=== PATIENT | female | born 1945 | race Caucasian/White ===

== ENCOUNTER 2023-01-05 11:32 | Emergency (ER) | payer MEDICARE, SELFPAY ==
--- NOTE | ~2023-01-05 | XR_ITS ---
EXAMINATION: XR hip RT 2V w AP pelvis DATE: 01/05/2023 16:58 INDICATION: Right lower back pain radiating laterally down the right hip and leg TECHNIQUE: Anteroposterior view of the pelvis and anteroposterior and frog-leg lateral views of the r ight hip were obtained. COMPARISON: CT abdomen and pelvis dated 09/22/2019 FINDINGS: Mild S-shaped curvature in the lumbar spine with severe spondylosis. Normal alignment in the pelvis. No fracture or suspected avascular necrosis. Mild to moderate osteoarthritis at the bilateral hip and sacroiliac joints. Mild hypertrophic change along the greater trochanters. Soft tissues are unremark able. IMPRESSION: 1. Mild to moderate bilateral hip and sacroiliac osteoarthritis. No acute onset abnormality. 2. Severe lumbar spondylosis. Reviewed, dictated and finalized at location A. ING MACHINE OPERATOR
[2023-01-05 12:25] VITALS: BP 135/113; PULSE 98; RESP 14; TEMP 36.4; O2SAT 99
--- NOTE | 2023-01-05 16:59 | PC.NURSE ---
this RN was informed by ED registration staff that patient left with family
--- NOTE | 2023-01-05 21:31 | ED.GENADULT ---
HPI - General Adult General Chief complaint: Back Pain/Injury Stated complaint: pain- sent by Time Seen by Provider: 01/05/23 14:28 Source: patient and family Mode of arrival: wheelchair Limitations: no limitations History of Present Illness HPI narrative: 77-year-old with a history of hypertension, diabetes, osteoarthritis, wheelchair-bound was brought in by daughter with complaints of right hip pain, patient daughter states that she was sent by her primary doctor for x-rays to make sure that she does not have a fracture. Patient denies any fall. . Related Data Allergies Allergy/AdvReac Type Severity Reaction Status Date / Time No Known Allergies Allergy Unverified 05/27/18 10:22 Review of Systems Review of Systems: All systems reviewed & are unremarkable except as noted in HPI and below Constitutional: Constitutional: Reports no additional constitutional complaints Eyes: Eyes: Reports no additional eye complaints ENT: Reports system reviewed and no additional complaints, except as documented Cardiovascular: Cardiovascular: Reports no additional cardiovascular complaints Respiratory: Respiratory: Reports no additional respiratory complaints Gastrointestinal: Gastrointestinal: Reports no additional gastrointestinal complaints Musculoskeletal: Musculoskeletal: Reports as per HPI Neurologic: Reports system reviewed and no additional complaints, except as documented PMFSH Social History Social History Smoking status: Never smoker Alcohol intake: never Exam Narrative: GENERAL: Well-appearing, well-nourished, and in no acute distress. HEAD: Normocephalic, atraumatic. Patient declined any further examination as she was extremely upset she stated she wants x-rays of the hip and she will get out of this place Course Course Emergency Course: 77-year-old was brought in by daughter with a complaint of right hip pain with no fall she wanted x-rays of her hip to make sure that she has no fracture . Patient daughter started yelling at me stating that she is waiting for 2 hours to get x-rays , I have apologized to her for the delay however I did explain to her that I was taking care of a critically ill patient and will see 1 patient later time. Patient states that her insurance and this is unacceptable. She declined to get out of the wheelchair onto the bed for examination. Patient left after getting the x-rays Vital Signs Vital signs: Vital Signs Temperature 36.4 C L 01/05/23 12:25 Pulse Rate 98 01/05/23 12:25 Respiratory Rate 14 01/05/23 12:25 Blood Pressure 135/113 H 01/05/23 12:25 Pulse Oximetry 99 01/05/23 12:25 Oxygen Delivery Room Air 01/05/23 12:25 Temperature 36.4 C L 01/05/23 12:25 Pulse Rate 98 01/05/23 12:25 Respiratory Rate 14 01/05/23 12:25 Blood Pressure 135/113 H 01/05/23 12:25 Pulse Oximetry 99 01/05/23 12:25 Oxygen Delivery Room Air 01/05/23 12:25 Medical Decision Making Vital Signs Vital Signs: Vital Signs Temperature 36.4 C L 01/05/23 12:25 Pulse Rate 98 01/05/23 12:25 Respiratory Rate 14 01/05/23 12:25 Blood Pressure 135/113 H 01/05/23 12:25 Pulse Oximetry 99 01/05/23 12:25 Oxygen Delivery Room Air 01/05/23 12:25 Temperature 36.4 C L 01/05/23 12:25 Pulse Rate 98 01/05/23 12:25 Respiratory Rate 14 01/05/23 12:25 Blood Pressure 135/113 H 01/05/23 12:25 Pulse Oximetry 99 01/05/23 12:25 Oxygen Delivery Room Air 01/05/23 12:25 Imaging Data Radiologist's impression: ITS Impressions Hip/Pelvis X-Ray 01/05/23 17:28 IMPRESSION: 1. Mild to moderate bilateral hip and sacroiliac osteoarthritis. No acute onset abnormality. 2. Severe lumbar spondylosis. Discharge Plan Discharge Clinical Impression: Chronic pain of right hip Patient Disposition: Elopement After Seen by Prov Condition: Stable Follow-up/Referrals: Jim
== END 2023-01-05 16:59 | disposition left against medical advice (07) ==
PROVIDERS: Emergency Provider Family Medicine; PCP Internal Medicine
DX: M25.551 Pain in right hip (principal); G89.29 Other chronic pain; E11.9 Type 2 diabetes mellitus without complications; I10 Essential (primary) hypertension; M19.90 Unspecified osteoarthritis, unspecified site; M47.816 Spondylosis without myelopathy or radiculopathy, lumbar region; M46.1 Sacroiliitis, not elsewhere classified; M16.0 Bilateral primary osteoarthritis of hip; Z99.3 Dependence on wheelchair
CPT/HCPCS: 73502; 99283

== ENCOUNTER 2023-02-20 07:59 | Inpatient (IN) | payer MEDICARE, SELFPAY ==
--- NOTE | ~2023-02-20 | US_ITS ---
EXAMINATION: US renal BI DATE: 02/22/2023 22:41 INDICATION: Acute kidney injury TECHNIQUE: Multiple grayscale and Doppler ultrasound images of the kidneys were obtained. COMPARISON: None. FINDINGS: The right kidney measures 11.1 x 5.3 x 5.6 cm but is poorly visualized. The left kidney dk sures 10.4 x 5.5 x 5.3 cm. The kidneys demonstrate normal parenchymal echogenicity. There is no hydro nephrosis. The bladder is obscured by bowel contents. IMPRESSION: 1. Normal kidneys without hydronephrosis. Reviewed, dictated and finalized at location F.
--- NOTE | ~2023-02-20 | XR_ITS ---
Portable chest x-ray Comparison: None Clinical History: PICC line placement Findings: Right-sided PICC line present, tip in the region of the SVC. No pneumothorax. Possible min imal central congestive change. Lungs are otherwise clear. Cardiomediastinal silhouette is stable. B ones and soft tissues are unremarkable. Impression: Right-sided PICC line in satisfactory position. Possible minimal central congestive changes. Reviewed, dictated and finalized at location . Impression: Right-sided PICC line in satisfactory position. Possible minimal central congestive changes.
--- NOTE | ~2023-02-20 | CT_ITS ---
EXAMINATION: CT brain wo con DATE: 02/23/2023 13:31 INDICATION: Confusion TECHNIQUE: Computed tomography (CT) of the head was performed without intravenous contrast. The mA wa s adjusted according to patient size. Iterative reconstruction technique was employed. Exam dose: 60 5.33 mGy-cm total exam DLP. COMPARISON: 04/22/2018 CT brain FINDINGS: Bilateral carotid siphon internal carotid artery calcifications. Bilateral vertebral artery and basilar artery calcification. There is nonspecific diminished attenuation of the cerebral white matter, likely due to chronic small vessel ischemic changes. There is prominent central and cortical cerebral and cerebellar volume loss. No intracranial mass lesion or hemorrhage or cerebrovascular accident, midline shift or mass effect e ffect is detected. No subdural or epidural hematoma. No fracture or bone destruction of the cranial vault. There are mastoid air cell effusions on the left. The right mastoid air cells are normally developed and aerated. Included paranasal sinuses are unremarkable. IMPRESSION: Central and cortical cerebral and cerebellar atrophy Cerebral atherosclerosis and chronic small vessel ischemic changes of the cerebral white matter No acute intracranial finding Left mastoid effusions Reviewed, dictated and finalized at Location A. Reviewed, dictated and finalized at location B. IMPRESSION: Central and cortical cerebral and cerebellar atrophy Cerebral atherosclerosis and chronic small vessel ischemic changes of the cereb ral white matter No acute intracranial finding Left mastoid effusions
--- NOTE | ~2023-02-20 | XR_ITS ---
XR sacrum coccyx min 2V DATE: 02/20/2023 11:38 INDICATION: Large decubitus ulcer of the gluteal cleft TECHNIQUE: AP, angled AP and lateral views of sacrum and coccyx COMPARISON: None FINDINGS: Osteopenia. Severe multilevel degenerative disc disease of the lumbar and lumbosacral spine. Normal alignment at the pubic symphysis and sacroiliac joints. No sacral or coccygeal fracture or bon e destruction is evident. Prominent of fecal material in the rectum and sigmoid colon. IMPRESSION: Osteopenia Severe multilevel degenerative disc disease Reviewed, dictated and finalized at location L.
[2023-02-20 08:06] VITALS: BP 100/72; PULSE 107; RESP 18; TEMP 36.5; O2SAT 99
[2023-02-20 08:56] LABS: Glucose Point of Care 256 mg/dl (65-105)
--- NOTE | 2023-02-20 09:19 | ED.WOUNDLAC ---
HPI - Wound/Laceration General Chief Complaint: Wound/Laceration Stated Complaint: bed sores Time Seen by Provider: 02/20/23 09:02 History of Present Illness HPI narrative: 78-year-old female presents to the emergency room today for decubitus ulcers to her left hip, and coccyx. She also has ulcers starting in both of her heels. She has not had any fever or chills. No nausea, vomiting or diarrhea. She is incontinent of urine. She is bedbound but does live at home with family care. She remains alert and fully oriented. The family reports that the ulcers started about a week and a half ago and have gotten worse. There is yellow and black slough covering the 2 large ulcers. She has a lot of redness around the coccyx wound. She is diabetic and family reports that she is poorly controlled. Related Data Allergies Allergy/AdvReac Type Severity Reaction Status Date / Time No Known Allergies Allergy Verified 02/20/23 08:09 Review of Systems Review of Systems: CONSTITUTIONAL: Denies fever, chills, or sweats. EYES: Denies visual changes, redness, or discharge. ENT: Denies rhinorrhea, congestion, sore throat, or otalgia. CARDIOVASCULAR: Denies chest pain, palpitations, or edema. RESPIRATORY: Denies cough or dyspnea. GASTROINTESTINAL: Denies abdominal pain, nausea, vomiting, or diarrhea. GENITOURINARY: Denies dysuria or hematuria. SKIN: as per HPI MUSCULOSKELETAL: Denies back pain, joint pain, or myalgia. NEUROLOGIC: Denies headache, numbness, dizziness, or weakness. PSYCHIATRIC: Denies anxiety or depression. [facility] Past Medical History Medical History (Updated 02/20/23 @ 11:33 by Mary Haines APRN) Acute gangrenous cholecystitis [place] Social History Social History Smoking status: Never smoker Alcohol intake: never Exam Narrative: GENERAL: Well-appearing, well-nourished, and in no acute distress. HEAD: Normocephalic, atraumatic. EYES: PERRLA and EOMI. NECK: Supple. No adenopathy or masses. No carotid bruits or JVD CHEST: Clear to auscultation. No respiratory distress. No wheezes rales or rhonchi HEART: Regular rate and rhythm. No murmur heard. Normal peripheral pulses. ABDOMEN: Soft, nontender, nondistended, normal active bowel sounds. EXTREMITIES: Normal range of motion. No edema. SKIN: Large decubitus ulcer unstageable to left hip. Large decubitus ulcer to coccyx unstageable with yellow and black slough. Significant erythema around this wound. Warm to touch. Open and draining decubitus ulcer to right heel. Pressure blister started on the left heel. NEURO: No focal deficits. Alert and oriented x3. PSYCH: Normal mood and affect. Course Course Emergency Course: [address] Parrish, agrees to accept patient for admission for decubitus ulcers with elevated WBC. 1145 Discussed with general surgery PRESS OFFICER, kristyn to see patient in consult. Vital Signs Vital signs: Vital Signs Temperature 36.5 C 02/20/23 08:06 Pulse Rate 107 H 02/20/23 08:06 Respiratory Rate 18 02/20/23 08:06 Blood Pressure 100/72 02/20/23 08:06 Pulse Oximetry 99 02/20/23 08:06 Oxygen Delivery Room Air 02/20/23 08:06 Temperature 36.5 C 02/20/23 08:06 Pulse Rate 107 H 02/20/23 08:06 Respiratory Rate 18 02/20/23 08:06 Blood Pressure 100/72 02/20/23 08:06 Pulse Oximetry 99 02/20/23 08:06 Oxygen Delivery Room Air 02/20/23 08:06 MDM - Wound/Laceration MDM Narrative Medical decision making narrative: Pt has decubitus uclers that need debridement and IV abx due to the erythema surrounding the coccyx wound and significant leukocytosis. Will admit and consult general surgery. Differential Diagnosis Differential diagnosis: Likely other (decubitus ulcers, cellulitis, uncontrolled diabetes, osteomylitis, sepsis) Lab Data Attestation: I reviewed the patient's lab results. 02/20/23 09:21 02/20/23 09:21
[2023-02-20 09:50] LABS: Basophils Absolute Auto 0.1 K/mm3 (0.0-0.1); Basophils Percent Auto 0.5 % (0.2-1.2); Eosinophils Absolute Auto 0.4 K/mm3 (0-0.3); Eosinophils Percent Auto 2.1 % (0-4.4); Hematocrit 35.7 % (37.0-47.0); Hemoglobin 11.2 g/dL (12.0-15.0); Immature Granulocyte Absolute 0.21 K/mm3 (0.00-0.031); Immature Granulocyte Percent A 1.2 % (0-0.5); Lymphocytes Percent Auto 10.5 % (18.3-44.2); Mean Corpuscular HGB Conc 31.4 g/dl (32-36); Mean Corpuscular Hemoglobin 29.3 pg (26-34); Mean Corpuscular Volume 93.5 fl (80-100); Mean Platelet Volume 9.6 fl (7.4-10.4); Monocytes Absolute Auto 0.9 K/mm3 (0.1-0.6); Monocytes Percent Auto 5.1 % (2.6-8.5); Neutrophils Absolute Auto 14.5 K/mm3 (1.3-6.7); Neutrophils Percent Auto 80.6 % (45.5-73.1); Platelet Count Result 682 k/mm3 (150-375); Red Blood Count 3.82 M/mm3 (4.2-5.4); Red Cell Distribution Width 14.2 % (11.5-14.5)
[2023-02-20 10:01] LABS: Alanine Aminotransferase 19 U/L (6-35); Alkaline Phosphatase 76 U/L (38-126); Anion Gap 8 mmol/L (8-16); Aspartate Amino Transferase 36 U/L (14-36); Bilirubin,Total 0.7 mg/dL (0.2-1.3); Blood Urea Nitrogen 49 mg/dL (7-17); Calcium 10.6 mg/dL (8.4-10.2); Carbon Dioxide 22 mmol/L (22-30); Chloride 105 mmol/L (98-107); Estimated CRCL calculation 38 ml/min; Estimated Glomerular Filt Rate 36; Glucose 264 mg/dL (65-110); Sodium 135 mmol/L (137-145)
[2023-02-20 10:13] LABS: CRP 7.5 mg/dL (<1.0)
[2023-02-20 11:28] LABS: Appearance Urine Turbid (Clear); Bacteria Urine 4+ /hpf; Bilirubin Urine Negative (Negative); Blood Urine 2+ (Negative); Color Urine Yellow (Yellow); Glucose Urine UA 2+ mg/dL (Negative); Ketones Urine Negative (Negative); Leukocyte Esterase Ur 3+ LEU/UL (Negative); Nitrate Urine Negative (Negative); Non Pathogenic Casts >20; Protein Urine 2+ mg/dL (Negative); Specific Grav Ur 1.016 (1.001-1.035); Squamous Epithelial Cell Urine Few /hpf (Few); Urobilinogen Urine 0.2 mg/dL (<2.0); WBC Clumps Urine Present /HPF; WBC Urine >100 /hpf
[2023-02-20 11:34] LABS: Add Urine Microscopic? YES
--- NOTE | 2023-02-20 12:10 | PC.NURSE ---
This patient, Shirley Carlson, was admitted to [facility] Surg Room 330-02. Patient/family oriented to hospital policies and general routines including ID bracelet, bed and alarms, visiting hours, pain management, procedures, bathroom and other care routines, personal items, smoking policy, room service/diet, and visiting hours. Information on how to activate the Rapid Response Team has been discussed. Patient/Family are encouraged to report perceived risks to care and to ask questions if they do not understand what they are told or what they should do.
[2023-02-20 12:30] VITALS: BMI 28.3
--- NOTE | 2023-02-20 12:49 | PM.CNGS ---
Assessment and Plan Assessment and plan (1) Decubitus ulcer of coccygeal region, unstageable: Code(s): L89.150 - Pressure ulcer of sacral region, unstageable Status: Acute Assessment and Plan: Unstageable sacral decubitus ulcer with soft necrotic tissue and eschar covering majority of the wound. There is no obvious purulent drainage or foul odor. Sacral x-rays do not show any evidence of osteomyelitis. She has been started on broad-spectrum IV antibiotics. Will initiate local wound care. We would recommend excisional debridement of the sacral ulcer. This area is tender and she is unable to tolerate side-lying positioning for very long due to her arthritic pain, therefore we recommend having this done in the OR with sedation. Discussed this with the patient and her daughter, who agree. Description of the procedure, risks, benefits, and expected outcomes were discussed in detail. Will plan to make her NPO after midnight and add her onto the surgery schedule. May need to consider other etiologies for her leukocytosis if this persists or worsens following debridement. (2) Decubitus ulcer of hip, left, unstageable: Code(s): L89.220 - Pressure ulcer of left hip, unstageable Status: Acute Assessment and Plan: Unstageable ulcer over the left greater trochanter with a dry brown eschar. No purulent drainage or obvious fluctuance or signs of infection. This ulcer appears more stable but may require debridement in the future depending on how it progresses. Recommend local wound care for now with mepilex border dressings and continue to monitor. (3) Pressure ulcer of left heel: Code(s): L89.629 - Pressure ulcer of left heel, unspecified stage Status: Acute Assessment and Plan: Appears stable with no obvious infection. Continue local wound care with mepilex dressing changes and elevate heels off bed. (4) Pressure ulcer of right heel: Code(s): L89.619 - Pressure ulcer of right heel, unspecified stage Status: Acute Assessment and Plan: Appears stable with no obvious infection. Continue local wound care with mepilex dressing changes and elevate heels off bed. (5) SIRS (systemic inflammatory response syndrome): Code(s): R65.10 - Systemic inflammatory response syndrome (SIRS) of non-infectious origin without acute organ dysfunction Status: Acute Assessment and Plan: Mild tachycardia and leukocytosis in the ER. Skin vs urinary source. Continue broad-spectrum IV antibiotics. Blood cultures were obtained. Urine culture pending. Also wound culture of the sacral wound was obtained in the ER, but on my exam no obvious purulent drainage was noted. Monitor labs. (6) Abnormal urinalysis: Code(s): R82.90 - Unspecified abnormal findings in urine Status: Acute Assessment and Plan: UA suggests possible UTI. Sue catheter in place in the ER. Urine culture pending. Abx and management per Hospitalist. (7) Insulin dependent type 2 diabetes mellitus: Code(s): E11.9 - Type 2 diabetes mellitus without complications; Z79.4 - intermediate designer (current) use of insulin Status: Acute Assessment and Plan: Discussed importance of glycemic control with wound healing and infection. Seems that her ulcers presented after having uncontrolled sugars when waiting for insulin when switching diabetic medications. Glucose in the 200's on admission. Management per Hospitalist. (8) Chronic kidney disease: Code(s): N18.9 - Chronic kidney disease, unspecified Status: Acute (9) Hypertension: Code(s): I10 - Essential (primary) hypertension Status: Acute (10) Bedbound: Code(s): Z74.01 - Bed confinement status Status: Acute Assessment and Plan: Patient is bedridden and lives at home with her daughter. They have a hospital bed at home for her and recently received a pressure mattress. Discussed importance of frequent turning and pressu
[2023-02-20] MEDS: MORPHINE SULFATE (*CRX) 2 MG/ML INJ IV PUSH (13:24)
--- NOTE | 2023-02-20 13:30 | PM.IMHP ---
H&P: HPI History of Present Illness Date/Time: 02/20/23 13:30 Chief Complaint: Painful bedsores. Narrative: This is a 78-year-old bedridden female with insulin-dependent type 2 diabetes mellitus, hypertension, dyslipidemia, chronic kidney disease who presented to the emergency department from home for evaluation of painful bedsores. Patient provides the following history. She lives with her daughter and her family members are her primary caretakers. Over the last week and a half she has reportedly developed sores on the coccyx and left hip which have gotten increasingly worse as the days have gone on. The patient has been complaining of quite a bit of pain and today they noticed redness around the wounds and black and yellow slough covering the ulcerated areas. Aside from the pain from the pressure sores, she has no complaints and specifically denies fever, chills, sweats, nausea, vomiting, diarrhea, and dysuria. She was afebrile on arrival with stable vital signs. Pertinent labs include a WBC count of 18.0, random glucose 320, and CRP 7.5. The remainder of her labs stable were unremarkable. Urine showed 3+ leukocyte esterase, greater than 100 WBC, WBC clumps, and 4+ bacteria though she denies urinary symptoms. Radiographs of the sacrum and coccyx showed osteopenia and severe multilevel degenerative disc disease. She was started on broad-spectrum antibiotics in the ER and she is being admitted in this setting for further treatment and surgery consultation. Review of Systems Review of Systems: Twelve systems were reviewed and are negative except for as per HPI. [facility] Past Medical History Medical History Chronic kidney disease Dyslipidemia Gout Hypertension Insulin dependent type 2 diabetes mellitus Osteoarthritis Surgical History Surgical History History of section x3 History of endoscopic retrograde cholangiopancreatography (03/2018) History of laparoscopic cholecystectomy (03/2018) Acute gangrenous cholecystitis. Family History Family History Father Bladder cancer Mother Colon cancer Other Breast cancer Grandparent Diabetes mellitus Social History Social History (Updated 02/21/23 @ 14:19 by Aida Dsouza PA-C) Social History: Surrogate medical decision maker: Denise Mehta, daughter. Code status: Full code. Smoking status: Never smoker Alcohol intake: never Substance use: never Lack of Transportation: No Lack of Food: Never True Current Housing: I Have Housing Concerned About Future Housing: No Difficulty Paying Gas/Electric Bills: No Difficulty Paying for Meds: No Currently Unemployed: No Education: High School Diploma/GED Difficulty w/ Childcare or Family Care: No Additional living arrangements comments: Lives with family in [place]. Spiritual care concerns: No Meds Home Medications and Allergies Home Medications Medication Instructions Recorded Confirmed Type acetaminophen 325 mg tablet 650 mg PO PRN PRN Pain 02/20/23 02/20/23 History (Tylenol) allopurinol 300 mg tablet 300 mg PO DAILY 02/20/23 02/20/23 History aspirin 81 mg tablet,delayed 81 mg PO DAILY 02/20/23 02/20/23 History release fenofibrate 160 mg tablet 160 mg PO DAILY 02/20/23 02/20/23 History glimepiride 4 mg tablet 4 mg PO BID 02/20/23 02/20/23 History insulin degludec 100 unit/mL (3 10 unit subcut DAILY 02/20/23 02/20/23 History mL) subcutaneous pen (Tresiba FlexTouch U-100 insulin) insulin regular hum U-500 conc 500 See Rx Instructions .Route .COMPLEX 02/20/23 02/20/23 History unit/mL(3 mL) subcut pen (Humulin R U-500 (Conc) Insulin Kwikpen) lisinopril 20 mg tablet 20 mg PO DAILY 02/20/23 02/20/23 History Allergies Allergy/AdvReac Type Severity Reaction Status Date / Time No Known
[2023-02-20 14:00] VITALS: BP 113/58; PULSE 99; RESP 18; TEMP 36.4; O2SAT 96
[2023-02-20] MEDS: CEFEPIME 2 GM/NS 50 ML 2 GM/50 ML BAG IVPB (14:57)
[2023-02-20] MEDS: metroNIDAZOLE 500 MG/ISO 100ML 500 MG/100 ML BAG 100 MG IVPB ×2 (15:46→21:56)
[2023-02-20] MEDS: HYDROcodone/acetaminophen (*CRX) 5-325 MG TABLET 1 TAB PO ×2 (16:32→22:08)
[2023-02-20 17:20] LABS: Glucose Point of Care 296 mg/dl (65-105)
[2023-02-20 22:00] VITALS: BP 129/62; PULSE 91; RESP 14; TEMP 36.1; O2SAT 96
[2023-02-20 22:16] LABS: Glucose Point of Care 320 mg/dl (65-105)
[2023-02-21] VITALS (16 sets, daily range): BP systolic 95–131; BP diastolic 36–80; PULSE 68–107; RESP 14–25; TEMP 36.2–37.8; O2SAT 93–100; BMI 28.3
[2023-02-21] MEDS: metroNIDAZOLE 500 MG/ISO 100ML 500 MG/100 ML BAG 100 MG IVPB ×3 (05:40→20:59)
[2023-02-21 06:24] LABS: Hematocrit 33.2 % (37.0-47.0); Hemoglobin 10.3 g/dL (12.0-15.0); Mean Corpuscular Hemoglobin 30.1 pg (26-34); Mean Corpuscular Volume 97.1 fl (80-100); Mean Platelet Volume 9.4 fl (7.4-10.4); Platelet Count Result 612 k/mm3 (150-375); Red Blood Count 3.42 M/mm3 (4.2-5.4); Red Cell Distribution Width 14.2 % (11.5-14.5)
[2023-02-21 06:32] LABS: Hemoglobin A1C 13.7 % (<5.7)
[2023-02-21 06:39] LABS: Alanine Aminotransferase 17 U/L (6-35); Albumin Level 3.4 g/dL (3.5-5.1); Alkaline Phosphatase 78 U/L (38-126); Anion Gap 11 mmol/L (8-16); Aspartate Amino Transferase 22 U/L (14-36); Bilirubin,Total 0.4 mg/dL (0.2-1.3); Blood Urea Nitrogen 52 mg/dL (7-17); Calcium 9.7 mg/dL (8.4-10.2); Carbon Dioxide 18 mmol/L (22-30); Chloride 104 mmol/L (98-107); Estimated CRCL calculation 29 ml/min; Estimated Glomerular Filt Rate 31; Glucose 333 mg/dL (65-110); Potassium 4.3 mmol/L (3.4-5.0); Sodium 133 mmol/L (137-145)
[2023-02-21 07:40] LABS: Glucose Point of Care 317 mg/dl (65-105)
[2023-02-21] MEDS: INSULIN ASPART (*BKC) 100 UNITS/ML SUB-Q ×3 (08:17→17:02)
[2023-02-21] MEDS: MORPHINE SULFATE (*CRX) 2 MG/ML INJ IV PUSH ×3 (08:18→22:24)
--- NOTE | 2023-02-21 09:15 | PC.NURSE ---
To OR via bed
[2023-02-21] MEDS: LACTATED RINGERS 1,000 ML 30 ML IV CONT (09:30)
--- NOTE | 2023-02-21 09:41 | WPDANESEPPF ---
Anes - Initial Pre Proc Eval Procedure: Operation Date: 02/21/23 10:30 Proposed Procedures p Debridement of Sacral Decubitus Ulcer - Donald Buitrago DO Date/Time: 02/21/23 09:41 Surgeon: Amaury Parrish MD Pre Op Diagnosis: Decubitus Ulcer Coccyx Patient Data Age: 78 Gender: F Height: 1.73 m Weight: 84.5 kg Last Vital Signs Temp 36.7 C 02/21/23 06:00 Pulse 93 02/21/23 06:00 Resp 21 H 02/21/23 06:00 BP 117/80 02/21/23 06:00 Pulse Ox 95 02/21/23 06:00 O2 Del Method Room Air 02/20/23 20:00 Allergies Allergy/AdvReac Type Severity Reaction Status Date / Time No Known Allergies Allergy Verified 02/20/23 12:32 Home Medications Medication Instructions Recorded Confirmed Type acetaminophen 325 mg tablet 650 mg PO PRN PRN Pain 02/20/23 02/20/23 History (Tylenol) allopurinol 300 mg tablet 300 mg PO DAILY 02/20/23 02/20/23 History aspirin 81 mg tablet,delayed 81 mg PO DAILY 02/20/23 02/20/23 History release fenofibrate 160 mg tablet 160 mg PO DAILY 02/20/23 02/20/23 History glimepiride 4 mg tablet 4 mg PO BID 02/20/23 02/20/23 History insulin degludec 100 unit/mL (3 10 unit subcut DAILY 02/20/23 02/20/23 History mL) subcutaneous pen (Tresiba FlexTouch U-100 insulin) insulin regular hum U-500 conc 500 See Rx Instructions .Route .COMPLEX 02/20/23 02/20/23 History unit/mL(3 mL) subcut pen (Humulin R U-500 (Conc) Insulin Kwikpen) lisinopril 20 mg tablet 20 mg PO DAILY 02/20/23 02/20/23 History Laboratory Tests 02/20/23 02/20/23 02/20/23 09:21 09:21 10:49 WBC 18.0 K/mm3 H K/mm3 (4.5-10.0) RBC 3.82 M/mm3 L M/mm3 (4.2-5.4) Hgb 11.2 g/dL L g/dL (12.0-15.0) Hct 35.7 % L % (37.0-47.0) MCV 93.5 fl fl (80-100) MCH 29.3 pg pg (26-34) MCHC 31.4 g/dl L g/dl (32-36) RDW 14.2 % % (11.5-14.5) Plt Count 682 k/mm3 H k/mm3 (150-375) MPV 9.6 fl fl (7.4-10.4) Immature Gran % (Auto) 1.2 % H % (0-0.5) Neut % (Auto) 80.6 % H % (45.5-73.1) Lymph % (Auto) 10.5 % L % (18.3-44.2) [place] % (Auto) 5.1 % % (2.6-8.5) Eos % (Auto) 2.1 % % (0-4.4) Baso % (Auto) 0.5 % % (0.2-1.2) Lymph # (Auto) 1.90 K/mm3 K/mm3 (0.9-3.2) [place] # (Auto) 0.9 K/mm3 H K/mm3 (0.1-0.6) Eos # (Auto) 0.4 K/mm3 H K/mm3 (0-0.3) Baso # (Auto) 0.1 K/mm3 K/mm3 (0.0-0.1) Abs Immat Gran (auto) 0.21 K/mm3 H K/mm3 (0.00-0.031) Absolute Neuts (auto) 14.5 K/mm3 H K/mm3 (1.3-6.7) Absolute Nucleated RBC 0.0 K/mm3 K/mm3 (0.0-0.012) Nucleated RBC % 0.0 % % (0.0-0.2) Sodium 135 mmol/L L mmol/L (137-145) Potassium 5.0 mmol/L mmol/L (3.4-5.0) Chloride 105 mmol/L mmol/L (98-107) Carbon Dioxide 22 mmol/L mmol/L (22-30) Anion Gap 8 mmol/L mmol/L (8-16) BUN 49 mg/dL H mg/dL (7-17) Creatinine 1.40 mg/dL H mg/dL (0.7-1.0) Estim Creat Clear Calc 38 ml/min ml/min Estimated GFR 36 L (59 - ) Glucose 264 mg/dL H mg/dL (65-110) POC Capillary Glucose Hemoglobin A1c Lactic Acid 2.0 mmol/L mmol/L (0.7-2.0) Calcium 10.6 mg/dL H mg/dL (8.4-10.2) Total Bilirubin 0.7 mg/dL mg/dL (0.2-1.3) AST 36 U/L U/L (14-36) ALT 19 U/L U/L (6-35) Alkaline Phosphatase 76 U/L U/L (38-126) C-Reactive Protein 7.5 mg/dL H mg/dL (<1.0) Total Protein 8.0 g/dL g/dL (6.3-8.2) Albumin 4.0 g/dL g/dL (3.5-5.1) Urine Color Urine Appearance Urine pH Ur Specific [place] Urine Protein Urine Glucose (UA) Urine Ketones Ur Blood (Man) Urine Nitrate
--- NOTE | 2023-02-21 09:51 | WPDHPUPDATE1 ---
History and Physical Update Update Date/Time: 02/21/23 09:51 History and Physical has been reviewed, including an updated exam of the patient. There are NO changes in the patient's condition. Risks, benefits, and alternatives have been discussed and questions answered. Patient agrees to proceed with procedure.
[2023-02-21 10:06] LABS: Glucose Point of Care 286 mg/dl (65-105)
[2023-02-21] MEDS: CEFEPIME 2 GM/NS 50 ML 2 GM/50 ML BAG IVPB (10:09)
[2023-02-21] MEDS: BUPIVACAINE/EPINEPHRINE 0.5% 10 ML VIAL INFILTRATE (10:43)
--- NOTE | 2023-02-21 11:00 | W.PM.PROC2 ---
Procedure Note - Detailed Date of Procedure 02/21/23 Pre-op Diagnosis Decubitus Ulcer Coccyx Post-op Diagnosis Same (Stage IV sacral decubitus ulcer) Procedure Performed Sharp excisional debridement of sacral decubitus ulcer measuring 9 cm x 5 cm including skin, subcutaneous fat, muscle, and tendon Surgeon Donald Buitrago, DO Anesthesia MAC and Local (0.5% bupivacaine with epinephrine) Indications This is a 78-year-old woman who presented with multiple decubitus ulcers. She is bed ridden and currently lives at home and is cared for by her family. She has had worsening problems with her glucose control and over the past 2 weeks has had new wounds develop on her sacral region, left hip, and bilateral heels. The sacral wound has some necrotic tissue and appears soft and is in need of debridement. Decision was made to proceed with debridement of sacral decubitus ulcer. Findings Sharp excisional debridement of sacral decubitus ulcer was performed. The debridement included skin, subcutaneous fat, muscle, and tendon. The dimensions measured 9 cm x 5 cm. The bone appeared healthy and viable without any evidence of osteomyelitis. Debridement was carried out to healthy bleeding tissue. The was then packed with Betadine-soaked Kerlix gauze. No specimens were obtained for pathology. There did not appear to be any significant purulence drainage which would warrant any further culturing. Description of Procedure Procedure as well as risks, benefits, and alternatives were discussed with the patient. Written consent was obtained and placed in chart prior to procedure. Patient was brought back to surgical suite. She was placed supine on operating table. Time-out was done confirm patient and procedure. She was then intubated by the anesthesia department. She was then repositioned into right lateral decubitus position. Her sacral region was prepped and draped in sterile fashion using Betadine prep. Sharp excisional debridement was then carried out using a 10 blade scalpel around the necrotic tissue at the surface of the sacral decubitus ulcer. Debridement was carried out with a [address] to healthy bleeding tissue. Once all of the necrotic tissue was adequately debrided, hemostasis was then achieved with electrocautery. The wound bed was then carefully inspected and there did not appear to be any significant amount of tissue that needed to be further debrided. The wound bed was then irrigated with sterile saline. It was then packed with Betadine-soaked 4 in Kerlix gauze. The wound dimensions measured 9 cm x 5 cm. Fluff gauze, ABD pad, and Medipore tape were then applied. Patient was then awakened from anesthesia, extubated, and transferred to recovery. Estimated Blood Loss 5 Complications No immediate complications Condition Stable Disposition Floor [facility] Billing Surgery - Charge Forward: Surgery Billing
[2023-02-21 11:32] LABS: Glucose Point of Care 262 mg/dl (65-105)
[2023-02-21] MEDS: INSULIN GLARGINE (*BKC) 100 UNITS/ML 10 UNITS SUB-Q ×2 (12:30→20:56)
[2023-02-21 12:45] LABS: Glucose Point of Care 279 mg/dl (65-105)
--- NOTE | 2023-02-21 13:51 | PM.IMPN ---
Progress Note: A&P Assessment and Plan (1) Decubitus ulcer of coccygeal region, unstageable: Code(s): L89.150 - Pressure ulcer of sacral region, unstageable Status: Acute (2) Decubitus ulcer of hip, left, unstageable: Code(s): L89.220 - Pressure ulcer of left hip, unstageable Status: Acute (3) Pressure ulcer of left heel: Code(s): L89.629 - Pressure ulcer of left heel, unspecified stage Status: Acute (4) Pressure ulcer of right heel: Code(s): L89.619 - Pressure ulcer of right heel, unspecified stage Status: Acute (5) Abnormal urinalysis: Code(s): R82.90 - Unspecified abnormal findings in urine Status: Acute (6) Insulin dependent type 2 diabetes mellitus: Code(s): E11.9 - Type 2 diabetes mellitus without complications; Z79.4 - [employer] (current) use of insulin Status: Acute (7) Chronic kidney disease: Code(s): N18.9 - Chronic kidney disease, unspecified Status: Acute (8) Hypertension: Code(s): I10 - Essential (primary) hypertension Status: Acute (9) Bedbound: Code(s): Z74.01 - Bed confinement status Status: Acute Plan The patient presented to the emergency department for evaluation of worsening pressure ulcers with some that are unstageable. She underwent excisional debridement in the OR today. BCx collected and broad-spectrum antibiotics started including vancomycin, cefepime, and metronidazole. BCx returned positive for GPC in clusters. UCx pending. WCx pending. Appreciate GenSurg input. Follow up on final cultures. DM poorly controlled wit A1c 13.7. Contineu Lantus, sliding scale insulin, Accu-Cheks, and hypoglycemic protocol. Renal function stable and at baseliine. Follow. Subjective Date/time seen: 02/21/23 13:51 Interval history: 78yo female bedridden female with insulin-dependent DM, HTN and CKD who presented to the emergency department from home for evaluation of painful bedsores.? Assuming care. Chart reviewed. Patient is just back from operating room. Underwent debridement of sacral decubitus ulcer. She has soreness in her left hip and buttock area. No chest pain or shortness of breath. She does not wear home oxygen. She does not have sleep apnea that she is aware of. She required oxygen postprocedure and is currently on 2 L. Exam Narrative: Tm 100.0 98.9 102/52 104 19 98% 2L Gen - NARD lying almost flat in bed Chest - lungs clear anteriorly, nml RR CV - RRR S1/S2 Abd - Soft, NT, ND, +BS - Sue secured draining clear yellow urine Ext - No pedal edema. left hip dressing clean and dry Psych - Nml mood and affect Skin - Warm and dry. patient refusing jackson detailed skin exam at this time Objective Data Vital Signs Vital Signs: Vital Signs - 24 hr 02/20/23 14:00 02/20/23 20:00 02/20/23 22:00 Temperature 97.6 F 97 F L Pulse Rate 99 91 Respiratory Rate 18 14 Blood Pressure 113/58 L 129/62 Pulse Oximetry 96 96 Oxygen Delivery Room Air Oxygen Flow Rate 02/21/23 06:00 02/21/23 09:25 02/21/23 08:15 Temperature 98.1 F 100.0 F H Pulse Rate 93 95 Respiratory Rate 21 H 20 Blood Pressure 117/80 131/36 L Pulse Oximetry 95 100 Oxygen Delivery Room Air Room Air Oxygen Flow Rate 02/21/23 11:03 02/21/23 11:15 02/21/23 11:30 Temperature 98.9 F Pulse Rate 95 97 101 H Respiratory Rate 19 25 H 23 H Blood Pressure 125/79 120/74 114/67 Pulse Oximetry 100 100 98 Oxygen Delivery Simple Face Mask Simple Face Mask Nasal Cannula Oxygen Flow Rate 10 10 2 02/21/23 11:45 02/21/23 12:00 Temperature Pulse Rate 103 H 104 H Respiratory Rate 19 19 Blood Pressure 107/55 L 102/52 L Pulse Oximetry 97 98 Oxygen Delivery Nasal Cannula Nasal Cannula Oxygen Flow Rate 2 2 Intake/Output Intake/Output: Intake & Output 02/18/23 02/19/23 02/20/23 02/21/23 23:59 23:59 23:59 23:59 Intake Total 750 550 Output Total 600 380 Balance 150 170 M
[2023-02-21] MEDS: FENOFIBRATE 160 MG TABLET PO (14:33)
[2023-02-21] MEDS: ASPIRIN 81 MG ENTERIC TABLET PO (14:33)
[2023-02-21] MEDS: allopurinoL 300 MG TABLET PO (14:33)
--- NOTE | 2023-02-21 15:36 | PC.NURSE ---
On 02/21/23, the student, Luanne Sanchez, provided care and completed [facility] documentation on this patient. I have reviewed the student's documentation and agree with the findings.
[2023-02-21 16:47] LABS: Glucose Point of Care 282 mg/dl (65-105)
[2023-02-22 04:00] VITALS: BP 119/54; PULSE 87; RESP 14; TEMP 36.3; O2SAT 96
[2023-02-22] MEDS: metroNIDAZOLE 500 MG/ISO 100ML 500 MG/100 ML BAG 100 MG IVPB ×3 (05:22→21:05)
[2023-02-22] MEDS: HYDROcodone/acetaminophen (*CRX) 5-325 MG TABLET 1 TAB PO (05:26)
[2023-02-22 05:38] LABS: Glucose Point of Care 419 mg/dl (65-105)
[2023-02-22] MEDS: INSULIN ASPART (*BKC) 100 UNITS/ML 10 UNITS SUB-Q (06:04)
[2023-02-22 06:23] LABS: Basophils Absolute Auto 0.1 K/mm3 (0.0-0.1); Basophils Percent Auto 0.7 % (0.2-1.2); Eosinophils Absolute Auto 0.5 K/mm3 (0-0.3); Eosinophils Percent Auto 3.6 % (0-4.4); Hematocrit 30.7 % (37.0-47.0); Hemoglobin 9.5 g/dL (12.0-15.0); Immature Granulocyte Absolute 0.25 K/mm3 (0.00-0.031); Immature Granulocyte Percent A 1.8 % (0-0.5); Lymphocytes Absolute Auto 1.27 K/mm3 (0.9-3.2); Lymphocytes Percent Auto 9.1 % (18.3-44.2); Mean Corpuscular HGB Conc 30.9 g/dl (32-36); Mean Corpuscular Hemoglobin 29.9 pg (26-34); Mean Corpuscular Volume 96.5 fl (80-100); Mean Platelet Volume 9.6 fl (7.4-10.4); Monocytes Absolute Auto 0.8 K/mm3 (0.1-0.6); Neutrophils Absolute Auto 10.9 K/mm3 (1.3-6.7); Neutrophils Percent Auto 78.8 % (45.5-73.1); Platelet Count Result 585 k/mm3 (150-375); Red Blood Count 3.18 M/mm3 (4.2-5.4); Red Cell Distribution Width 14.3 % (11.5-14.5); White Blood Count 13.9 K/mm3 (4.5-10.0)
[2023-02-22 06:39] LABS: Alanine Aminotransferase 18 U/L (6-35); Albumin Level 3.3 g/dL (3.5-5.1); Anion Gap 7 mmol/L (8-16); Aspartate Amino Transferase 23 U/L (14-36); Bilirubin,Total 0.3 mg/dL (0.2-1.3); Blood Urea Nitrogen 60 mg/dL (7-17); Calcium 9.6 mg/dL (8.4-10.2); Carbon Dioxide 21 mmol/L (22-30); Chloride 103 mmol/L (98-107); Estimated CRCL calculation 24 ml/min; Estimated Glomerular Filt Rate 24; Glucose 440 mg/dL (65-110); Magnesium 1.7 mg/dL (1.6-2.3); Phosphorus 3.5 mg/dL (2.5-4.5); Potassium 4.8 mmol/L (3.4-5.0); Sodium 131 mmol/L (137-145)
[2023-02-22 06:40] LABS: Alkaline Phosphatase 80 U/L (38-126)
[2023-02-22 08:00] VITALS: BP 104/52; PULSE 92; RESP 16; TEMP 37.1; O2SAT 92
[2023-02-22 08:22] LABS: Glucose Point of Care 393 mg/dl (65-105)
[2023-02-22] MEDS: INSULIN GLARGINE (*BKC) 100 UNITS/ML 20 UNITS SUB-Q ×2 (09:37→20:51)
[2023-02-22] MEDS: MORPHINE SULFATE (*CRX) 2 MG/ML INJ IV PUSH (09:41)
[2023-02-22] MEDS: SODIUM CHLORIDE 0.9% IV 1,000 ML 70 ML IV CONT (09:41)
--- NOTE | 2023-02-22 09:50 | WPDANESPN ---
Anes - Prog Note Post-Op Date/Time: 02/22/23 09:50 Cardiovascular status: normal Respiratory status: normal Airway patency: baseline Mental status: baseline Post-Op hydration status: normal Vital Signs: Last Vital Signs Temp 36.3 C L 02/22/23 04:00 Pulse 87 02/22/23 04:00 Resp 14 02/22/23 04:00 BP 119/54 L 02/22/23 04:00 Pulse Ox 96 02/22/23 04:00 O2 Del Method Room Air 02/21/23 20:00 O2 Flow Rate 2 02/21/23 12:20 Pain Score (VAS): 03/05 I/O: Intake & Output 02/21/23 02/22/23 02/22/23 23:59 07:59 15:59 Intake Total 640 1150 Output Total 150 850 Balance 490 300 Laboratory Tests 02/22/23 05:33 02/22/23 05:33 02/21/23 02/21/23 02/21/23 10:03 11:28 12:33 WBC RBC Hgb Hct MCV MCH MCHC RDW Plt Count MPV Immature Gran % (Auto) Neut % (Auto) Lymph % (Auto) [place] % (Auto) Eos % (Auto) Baso % (Auto) Lymph # (Auto) [place] # (Auto) Eos # (Auto) Baso # (Auto) Abs Immat Gran (auto) Absolute Neuts (auto) Absolute Nucleated RBC Nucleated RBC % Sodium Potassium Chloride Carbon Dioxide Anion Gap BUN Creatinine Estim Creat Clear Calc Estimated GFR Glucose POC Capillary Glucose 286 H 262 H 279 H Calcium Phosphorus Magnesium Total Bilirubin AST ALT Alkaline Phosphatase Total Protein Albumin 02/21/23 02/22/23 02/22/23 16:42 05:32 05:33 WBC 13.9 H RBC 3.18 L Hgb 9.5 L Hct 30.7 L MCV 96.5 MCH 29.9 MCHC 30.9 L RDW 14.3 Plt Count 585 H MPV 9.6 Immature Gran % (Auto) 1.8 H Neut % (Auto) 78.8 H Lymph % (Auto) 9.1 L [place] % (Auto) 6.0 Eos % (Auto) 3.6 Baso % (Auto) 0.7 Lymph # (Auto) 1.27 [place] # (Auto) 0.8 H Eos # (Auto) 0.5 H Baso # (Auto) 0.1 Abs Immat Gran (auto) 0.25 H Absolute Neuts (auto) 10.9 H Absolute Nucleated RBC 0.0 Nucleated RBC % 0.0 Sodium Potassium Chloride Carbon Dioxide Anion Gap BUN Creatinine Estim Creat Clear Calc Estimated GFR Glucose POC Capillary Glucose 282 H 419 H Calcium Phosphorus Magnesium Total Bilirubin AST ALT Alkaline Phosphatase Total Protein Albumin 02/22/23 02/22/23 05:33 08:18 WBC RBC Hgb Hct MCV MCH MCHC RDW Plt Count MPV Immature Gran % (Auto) Neut % (Auto) Lymph % (Auto) [place] % (Auto) Eos % (Auto) Baso % (Auto) Lymph # (Auto) [place] # (Auto) Eos # (Auto) Baso # (Auto) Abs Immat Gran (auto) Absolute Neuts (auto) Absolute Nucleated RBC Nucleated RBC % Sodium 131 L Potassium 4.8 Chloride 103 Carbon Dioxide 21 L Anion Gap 7 L BUN 60 H Creatinine 2.00 H Estim Creat Clear Calc 24 Estimated GFR 24 L Glucose 440 H POC Capillary Glucose 393 H Calcium 9.6 Phosphorus 3.5 Magnesium 1.7 Total Bilirubin 0.3 AST 23 ALT 18 Alkaline Phosphatase 80 Total Protein 6.0 L Albumin 3.3 L Microbiology 02/20/23 10:49 Blood Blood Culture - Preliminary Staphylococcus hominis 02/20/23 09:49 Buttock Wound Culture - Preliminary Gram negative bacilli isolated 02/20/23 11:05 Urine Catheterized Urine Culture - Final 02/20/23 11:05 Blood Blood Culture - Preliminary Post-procedural complaints: none Patient Feedback: Patient satisfied with anesthetic care.
[2023-02-22 11:31] LABS: Glucose Point of Care 323 mg/dl (65-105)
[2023-02-22 11:55] LABS: Glucose Point of Care 317 mg/dl (65-105)
[2023-02-22 12:00] VITALS: BP 109/47; PULSE 97; RESP 16; TEMP 37.4; O2SAT 92
[2023-02-22] MEDS: INSULIN ASPART (*BKC) 100 UNITS/ML SUB-Q ×3 (12:35→17:42)
[2023-02-22] MEDS: CEFEPIME 2 GM/NS 50 ML 2 GM/50 ML BAG IVPB (13:38)
--- NOTE | 2023-02-22 14:18 | PM.IMPN ---
Progress Note: A&P Assessment and Plan (1) Decubitus ulcer of coccygeal region, unstageable: Code(s): L89.150 - Pressure ulcer of sacral region, unstageable Status: Acute (2) Decubitus ulcer of hip, left, unstageable: Code(s): L89.220 - Pressure ulcer of left hip, unstageable Status: Acute (3) Pressure ulcer of left heel: Code(s): L89.629 - Pressure ulcer of left heel, unspecified stage Status: Acute (4) MIRIAM (acute kidney injury): Code(s): N17.9 - Acute kidney failure, unspecified Status: Acute (5) Pressure ulcer of right heel: Code(s): L89.619 - Pressure ulcer of right heel, unspecified stage Status: Acute (6) Abnormal urinalysis: Code(s): R82.90 - Unspecified abnormal findings in urine Status: Acute (7) Insulin dependent type 2 diabetes mellitus: Code(s): E11.9 - Type 2 diabetes mellitus without complications; Z79.4 - director long term care (current) use of insulin Status: Acute (8) Chronic kidney disease: Code(s): N18.9 - Chronic kidney disease, unspecified Status: Acute (9) Hypertension: Code(s): I10 - Essential (primary) hypertension Status: Acute (10) Bedbound: Code(s): Z74.01 - Bed confinement status Status: Acute Plan The patient presented to the emergency department for evaluation of worsening pressure ulcers with some that are unstageable. She underwent excisional debridement in the OR 02/22. BCx collected and broad-spectrum antibiotics started including vancomycin, cefepime, and metronidazole. BCx returned positive for Staph homis. UCx negative; UTI ruled out. WCx growing gram negative bacilli. Appreciate GenSurg input. Follow up on final cultures. DM poorly controlled wit A1c 13.7. Continue Accu-Cheks covering with sliding scale insulin. Hypoglycemic protocol available as needed. Lantus resumed but glucose poorly controlled despite her not eating much. Will advance lantus. Novolog at meals was added. Renal function abnormal now with Cr 2.0. Could be prerenal and/or ATN. Long discussion with patient and family about needing IV access. They do not feel at this time that she would consider dialysis and are okay with having PICC liine placed. They understand that this can scar veins that may need to be used later for dialysis access. Start IV fluids. Check lipase given the upper abd pain. LFTs okay. Hold lisinopril with soft BP and MIRIAM. Subjective Date/time seen: 02/22/23 14:18 Interval history: 78yo female bedridden female with insulin-dependent DM, HTN and CKD who presented to the emergency department from home for evaluation of painful bedsores.? Patient having increasing pain in the buttock area and abdomen. He has been eating poorly. She had nausea and vomiting last night. No diarrhea. She is unclear when her last bowel movement was. Family state the patient has been bed bound for 5 years but never had decubitus ulcers up until a few weeks ago. Patient repeatedly states 'I dont want to be touched' Exam Narrative: AF 109/47 97 16 92%ra Gen - NARD lying almost flat in bed Chest - lungs clear anteriorly and in the flanks, nml RR CV - RRR S1/S2 Abd - Soft, upper abdomnal pain. - Sue secured draining clear yellow urine with some sediment Ext - trace pedal edema. Psych - anxious Skin - Warm and dry. Objective Data Vital Signs Vital Signs: Vital Signs - 24 hr 02/21/23 16:00 02/21/23 17:15 02/21/23 17:05 Temperature 97.9 F Pulse Rate 102 H Respiratory Rate 16 Blood Pressure 106/60 Pulse Oximetry 93 94 Oxygen Delivery Room Air Room Air 02/21/23 20:00 02/21/23 20:00 02/22/23 04:00 Temperature 97.5 F L 97.4 F L Pulse Rate 99 87 Respiratory Rate 14 14 Blood Pressure 95/54 L 119/54 L Pulse Oximetry 96 96 Oxygen Delivery Room Air 02/22/23 08:00 02/22/23 12:00 Temperature 98.7 F 99.4 F Pulse Rate 92 97 Respiratory Rate 16 16 Blood Pressure 104/52
[2023-02-22 16:00] VITALS: BP 110/58; PULSE 84; RESP 16; TEMP 37; O2SAT 93
[2023-02-22 16:15] LABS: Glucose Point of Care 233 mg/dl (65-105)
[2023-02-22] MEDS: MORPHINE SULFATE (*CRX) 4 MG/ML INJ IV PUSH ×2 (17:39→20:56)
[2023-02-22] MEDS: ENOXAPARIN 40 MG/0.4 ML SYRINGE SUB-Q (17:43)
--- NOTE | 2023-02-22 18:04 | PM.PNGS ---
Progress Note: A&P Assessment and Plan (1) Decubitus ulcer of sacral region, stage 4: Code(s): L89.154 - Pressure ulcer of sacral region, stage 4 Status: Acute Assessment and Plan: Continue daily dressing changes. Wound overall looks healthy. Will need to continue local wound care and limit pressure to prevent further tissue damage or infection. (2) Decubitus ulcer of hip, left, unstageable: Code(s): L89.220 - Pressure ulcer of left hip, unstageable Status: Acute Assessment and Plan: No drainage or erythema. Continue local wound care. (3) Insulin dependent type 2 diabetes mellitus: Code(s): E11.9 - Type 2 diabetes mellitus without complications; Z79.4 - custodial (current) use of insulin Status: Acute (4) Bedbound: Code(s): Z74.01 - Bed confinement status Status: Acute Subjective Subjective Date/Time Seen: 02/22/23 18:04 Interval history: Patient confused today. Agitated and not wanting to have wound looked at. Discussed with patient the importance of closely monitoring wound and continuing wound care. Exam Back/Spine/Pelvis: Other: Sacral wound packing removed. Minimal bleeding and minimal necrotic tissue within wound bed. About 80-90% of wound appears healthy. Wound packed with Silvergel 4x4 gauze, ABD and tape. Objective Data Vital Signs Vital Signs: Vital Signs - 24 hr 02/21/23 20:00 02/21/23 20:00 02/22/23 04:00 Temperature 36.4 C L 36.3 C L Pulse Rate 99 87 Respiratory Rate 14 14 Blood Pressure 95/54 L 119/54 L Pulse Oximetry 96 96 Oxygen Delivery Room Air 02/22/23 08:00 02/22/23 12:00 02/22/23 16:00 Temperature 37.1 C 37.4 C 37.0 C Pulse Rate 92 97 84 Respiratory Rate 16 16 16 Blood Pressure 104/52 L 109/47 L 110/58 L Pulse Oximetry 92 92 93 Oxygen Delivery Intake/Output Intake/Output: Intake & Output 02/19/23 02/20/23 02/21/23 02/22/23 23:59 23:59 23:59 23:59 Intake Total 750 1290 1390 Output Total 600 530 850 Balance 150 760 540 Meds/Results Medications: Active Medications Generic Name Dose Route Start Last Admin Trade Name Freq PRN Reason Stop Dose Admin Acetaminophen 650 mg 02/20/23 12:44 Acetaminophen 325 Mg Tablet PO Q6H PRN Mild Pain (1-3) or Fever Allopurinol 300 mg 02/21/23 09:00 02/21/23 14:33 Allopurinol 300 Mg Tablet PO 300 mg DAILY DAMON Administration Aspirin 81 mg 02/21/23 09:00 02/21/23 14:33 Aspirin 81 Mg Enteric Tablet PO 81 mg DAILY DAMON Administration Dextrose 12.5 gm 02/21/23 00:09 Dextrose 50% 25 Gm/50 Ml Syringe IV PUSH PRN PRN Hypoglycemia Protocol Enoxaparin Sodium 40 mg 02/22/23 09:00 02/22/23 17:43 Enoxaparin 40 Mg/0.4 Ml Syringe SUB-Q 40 mg DAILY DAMON Administration Fenofibrate 160 mg 02/21/23 09:00 02/21/23 14:33 Fenofibrate 160 Mg Tablet PO 160 mg DAILY DAMON Administration Glucagon 1 mg 02/21/23 00:09 Glucagon For Inj 1 Mg Vial IM PRN PRN Hypoglycemia Protocol Glucose 15 gm 02/21/23 00:09 Glucose Oral Gel 15 Gm Of Glucse In 37.5 Gm Tube PO PRN PRN Hypoglycemia Protocol Metronidazole 500 mg in 100 mls @ 100 mls/hr 02/20/23 14:00 02/22/23 15:35 Flagyl 500 Mg/Iso Soln 100 Ml IVPB 100 mls/hr Q8HR DAMON Administration Vancomycin HCl 1,500 mg in 500 mls @ 250 mls/hr 02/21/23 23:00 02/22/23 03:05 Vancomycin 1,500 Mg/D5w 500 Ml IVPB Infused Q36H DAMON Infusion Dextrose 1,000 mls @ 100 mls/hr 02/21/23 00:09 Dextrose 5% 1,000 Ml IVPB PRN PRN Hypoglycemia Protocol Sodium Chloride 1,000 mls @ 70 mls/hr 02/22/23 08:10 02/22/23 09:41 Normal Saline Iv IV CONT 70 mls/hr .[id number] DAMON Administration Cefepime HCl 2 gm in 50 mls @ 100 mls/hr 02/22/23 13:00 02/22/23 13:38 Maxipime 2 Gm/Ns 50 Ml IVPB 100 mls/hr Q24H DAMON Administration Insulin Aspart 6 units 02/22/23 08:00 02/22/23 17:44
[2023-02-22] MEDS: ONDANSETRON INJ 4 MG/2 ML VIAL IV PUSH (18:32)
[2023-02-22 18:45] LABS: Creatinine Urine 50.2 mg/dL
[2023-02-22 18:46] LABS: Sodium Urine Random 53 meq/L
[2023-02-22 18:49] LABS: Lipase 206 U/L (23-300)
[2023-02-22 18:54] LABS: Eosinophil Urine None Seen % (None Seen); Urine Eos QC 2nd Tech Confirmed
--- NOTE | 2023-02-22 19:39 | PC.NURSE ---
Upon assessing the pt, this RN listened to pt repeatedly request to be left alone, do not turn, do not mess with me, just leave me alone. Pt IV bad, and pt states she is a hard stick. Educated pt, who was then a/ox3, about PICC line. Pt again requesting to be left alone. Informed MD. Returned with MD to pt room, daughter now present. Pt refusing cares, daughter requesting us to do dressing changes and Q2 T&R. Explained that we cannot force things like repositions or dressing changes. PICC line ordered; daughter who is POA signed consent. Pt finally resting after PICC placed. Pt unhappy but tolerated procedure well. Pt refusing to eat or drink. Daughter upset at mother's behavior. Explained effect of anesthesia, pain medications, new environment. Daughter understandable and trying to tell mom that she is not to refuse care. Pt resting well. Surgeon to bedside; pt premedicated; dressing change completed. Pt very confused asking where she was and what was happening. Tried to reassure pt, daughter bedside also providing comforts. Pt c/o dizziness, refusing food and meds. Pt eventually calmed down and sleeping.
[2023-02-22 20:00] VITALS: BP 98/51; PULSE 90; RESP 16; TEMP 36.7; O2SAT 96
[2023-02-22] MEDS: MECLIZINE HCL 25 MG TABLET PO (20:51)
[2023-02-22] MEDS: CENTRAL LINE FLUSH 10 ML IV PUSH (20:56)
[2023-02-22 23:20] LABS: Glucose Point of Care 190 mg/dl (65-105)
[2023-02-23] VITALS: BP 98/57; PULSE 81; RESP 18; TEMP 36.9; O2SAT 95
[2023-02-23 04:00] VITALS: BP 131/68; PULSE 99; RESP 14; TEMP 36.6; O2SAT 94
[2023-02-23] MEDS: SODIUM CHLORIDE 0.9% IV 1,000 ML 70 ML IV CONT (05:09)
[2023-02-23] MEDS: metroNIDAZOLE 500 MG/ISO 100ML 500 MG/100 ML BAG 100 MG IVPB ×3 (05:10→21:09)
[2023-02-23 05:38] LABS: Basophils Absolute Auto 0.1 K/mm3 (0.0-0.1); Basophils Percent Auto 0.7 % (0.2-1.2); Eosinophils Absolute Auto 0.6 K/mm3 (0-0.3); Eosinophils Percent Auto 4.5 % (0-4.4); Hematocrit 30.2 % (37.0-47.0); Hemoglobin 9.5 g/dL (12.0-15.0); Immature Granulocyte Absolute 0.32 K/mm3 (0.00-0.031); Immature Granulocyte Percent A 2.4 % (0-0.5); Lymphocytes Absolute Auto 1.41 K/mm3 (0.9-3.2); Lymphocytes Percent Auto 10.6 % (18.3-44.2); Mean Corpuscular HGB Conc 31.5 g/dl (32-36); Mean Corpuscular Hemoglobin 30.3 pg (26-34); Mean Corpuscular Volume 96.2 fl (80-100); Mean Platelet Volume 9.3 fl (7.4-10.4); Monocytes Absolute Auto 0.9 K/mm3 (0.1-0.6); Monocytes Percent Auto 6.4 % (2.6-8.5); Neutrophils Percent Auto 75.4 % (45.5-73.1); Platelet Count Result 544 k/mm3 (150-375); Red Blood Count 3.14 M/mm3 (4.2-5.4); Red Cell Distribution Width 14.5 % (11.5-14.5); White Blood Count 13.3 K/mm3 (4.5-10.0)
[2023-02-23 05:52] LABS: Albumin Level 3.1 g/dL (3.5-5.1); Anion Gap 6 mmol/L (8-16); Blood Urea Nitrogen 57 mg/dL (7-17); Calcium 9.7 mg/dL (8.4-10.2); Carbon Dioxide 23 mmol/L (22-30); Chloride 109 mmol/L (98-107); Estimated CRCL calculation 30 ml/min; Estimated Glomerular Filt Rate 31; Glucose 133 mg/dL (65-110); Magnesium 1.8 mg/dL (1.6-2.3); Phosphorus 3.2 mg/dL (2.5-4.5); Potassium 4.6 mmol/L (3.4-5.0); Sodium 138 mmol/L (137-145)
[2023-02-23] MEDS: CENTRAL LINE FLUSH 10 ML IV PUSH ×2 (05:59→22:00)
[2023-02-23 06:21] LABS: Vancomycin Trough 18.7 ug/mL (10.0-20.0)
[2023-02-23 08:06] LABS: Glucose Point of Care 122 mg/dl (65-105)
[2023-02-23] MEDS: oxyCODONE HCL (*CRX) 2.5 MG TAB IR PO (08:19)
[2023-02-23] MEDS: MECLIZINE HCL 25 MG TABLET PO ×2 (08:19→19:37)
[2023-02-23] MEDS: allopurinoL 300 MG TABLET PO (08:20)
[2023-02-23] MEDS: FENOFIBRATE 160 MG TABLET PO (08:20)
[2023-02-23] MEDS: ASPIRIN 81 MG ENTERIC TABLET PO (08:20)
[2023-02-23] MEDS: ENOXAPARIN 40 MG/0.4 ML SYRINGE SUB-Q (08:21)
[2023-02-23] MEDS: SILVERGEL (ELTA) 45 ML 1 APPLIC TOPICAL (08:22)
[2023-02-23 09:30] VITALS: BP 115/68; PULSE 105; RESP 16; TEMP 36.7; O2SAT 95
--- NOTE | 2023-02-23 10:20 | PM.PNGS ---
Progress Note: A&P Assessment and Plan (1) Decubitus ulcer of sacral region, stage 4: Code(s): L89.154 - Pressure ulcer of sacral region, stage 4 Status: Acute Assessment and Plan: Continue daily dressing changes. Will need to continue local wound care and limit pressure to prevent further tissue damage or infection. (2) Decubitus ulcer of hip, left, unstageable: Code(s): L89.220 - Pressure ulcer of left hip, unstageable Status: Acute Assessment and Plan: No drainage or erythema. Continue local wound care. (3) Insulin dependent type 2 diabetes mellitus: Code(s): E11.9 - Type 2 diabetes mellitus without complications; Z79.4 - [facility] (current) use of insulin Status: Acute (4) Bedbound: Code(s): Z74.01 - Bed confinement status Status: Acute Subjective Subjective Date/Time Seen: 02/23/23 10:20 Interval history: Patient not wanting me to look at her wound today. She is only concerned about her dry mouth and anxiety. Objective Data Vital Signs Vital Signs: Vital Signs - 24 hr 02/22/23 12:00 02/22/23 16:00 02/22/23 20:00 Temperature 37.4 C 37.0 C Pulse Rate 97 84 Respiratory Rate 16 16 Blood Pressure 109/47 L 110/58 L Pulse Oximetry 92 93 Oxygen Delivery Room Air 02/22/23 20:00 02/23/23 00:00 02/23/23 04:00 Temperature 36.7 C 36.9 C 36.6 C Pulse Rate 90 81 99 Respiratory Rate 16 18 14 Blood Pressure 98/51 L 98/57 L 131/68 Pulse Oximetry 96 95 94 Oxygen Delivery 02/23/23 09:30 Temperature 36.7 C Pulse Rate 105 H Respiratory Rate 16 Blood Pressure 115/68 Pulse Oximetry 95 Oxygen Delivery Intake/Output Intake/Output: Intake & Output 02/20/23 02/21/23 02/22/23 02/23/23 23:59 23:59 23:59 23:59 Intake Total 750 1290 2840 300 Output Total 159 317 8241 450 Balance 939 268 5760 -150 Meds/Results Medications: Active Medications Generic Name Dose Route Start Last Admin Trade Name Freq PRN Reason Stop Dose Admin Acetaminophen 650 mg 02/20/23 12:44 Acetaminophen 325 Mg Tablet PO Q6H PRN Mild Pain (1-3) or Fever Allopurinol 300 mg 02/21/23 09:00 02/23/23 08:20 Allopurinol 300 Mg Tablet PO 300 mg DAILY DAMON Administration Aspirin 81 mg 02/21/23 09:00 02/23/23 08:20 Aspirin 81 Mg Enteric Tablet PO 81 mg DAILY DAMON Administration Dextrose 12.5 gm 02/21/23 00:09 Dextrose 50% 25 Gm/50 Ml Syringe IV PUSH PRN PRN Hypoglycemia Protocol Enoxaparin Sodium 40 mg 02/22/23 09:00 02/23/23 08:21 Enoxaparin 40 Mg/0.4 Ml Syringe SUB-Q 40 mg DAILY DAMON Administration Fenofibrate 160 mg 02/21/23 09:00 02/23/23 08:20 Fenofibrate 160 Mg Tablet PO 160 mg DAILY DAMON Administration Glucagon 1 mg 02/21/23 00:09 Glucagon For Inj 1 Mg Vial IM PRN PRN Hypoglycemia Protocol Glucose 15 gm 02/21/23 00:09 Glucose Oral Gel 15 Gm Of Glucse In 37.5 Gm Tube PO PRN PRN Hypoglycemia Protocol Metronidazole 500 mg in 100 mls @ 100 mls/hr 02/20/23 14:00 02/23/23 06:10 Flagyl 500 Mg/Iso Soln 100 Ml IVPB Infused Q8HR DAMON Infusion Vancomycin HCl 1,500 mg in 500 mls @ 250 mls/hr 02/21/23 23:00 02/22/23 03:05 Vancomycin 1,500 Mg/D5w 500 Ml IVPB Infused Q36H DAMON Infusion Dextrose 1,000 mls @ 100 mls/hr 02/21/23 00:09 Dextrose 5% 1,000 Ml IVPB PRN PRN Hypoglycemia Protocol Sodium Chloride 1,000 mls @ 70 mls/hr 02/22/23 08:10 02/23/23 05:09 Normal Saline Iv IV CONT 70 mls/hr .[id number] DAMON Administration Cefepime HCl 2 gm in 50 mls @ 100 mls/hr 02/22/23 13:00 02/22/23 14:08 Maxipime 2 Gm/Ns 50 Ml IVPB Infused Q24H DAMON Infusion Insulin Aspart 6 units 02/22/23 08:00 02/22/23 17:44 Insulin Aspart (*[facility]) 100 Units/Ml 0.067 units/kg (6 units) Not Given SUB-Q TIDWM [facility] Insulin Aspart 4 - 8 units 02/22/23 08:00 02/22/23 17:42 Insulin Aspart (*[facility]) 100 Un
--- NOTE | 2023-02-23 11:09 | PM.IMPN ---
Progress Note: A&P Assessment and Plan (1) Altered mental status: Code(s): R41.82 - Altered mental status, unspecified Status: Acute Assessment and Plan: Patient continues to have altered mental status. 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 No focal weakness. On appropriate abx. Medications induced? Will check CT brain. (2) Sepsis: Code(s): A41.9 - Sepsis, unspecified organism Status: Acute Assessment and Plan: The patient presented to the emergency department for evaluation of worsening pressure ulcers with some that are unstageable. She underwent excisional debridement in the OR 02/22/23. BCx collected and broad-spectrum antibiotics started including vancomycin, cefepime, and metronidazole. BCx returned positive for Staph hominis. UCx negative; UTI ruled out. WCx growing gram negative bacilli. Appreciate GenSurg input. Follow up on final cultures. Continue current abx (3) Bacteremia: Code(s): R78.81 - Bacteremia Status: Acute Assessment and Plan: As above (4) MIRIAM (acute kidney injury): Code(s): N17.9 - Acute kidney failure, unspecified Status: Acute Assessment and Plan: Patient has underlying CKD. Cr up to 2.0. Could be prerenal and/or ATN. Long discussion with patient and family about needing IV access on 02/22. They do not feel she would consider dialysis and are okay with having PICC line placed. They understand that this can scar veins that may need to be used later for dialysis access. PICC line placed. She was started on IV fluids. Lisinopril on hold due to soft BP and MIRIAM. Renal US normal Cr better at 1.6. Follow (5) Decubitus ulcer of coccygeal region, unstageable: Code(s): L89.150 - Pressure ulcer of sacral region, unstageable Status: Deleted Assessment and Plan: The patient presented to the emergency department for evaluation of worsening pressure ulcers with some that are unstageable. She underwent excisional debridement in the OR 02/22/23. Culture results as above. Continue current dressing changes. Appreciate GenSurg input. (6) Decubitus ulcer of hip, left, unstageable: Code(s): L89.220 - Pressure ulcer of left hip, unstageable Status: Acute Assessment and Plan: As above (7) Pressure ulcer of left heel: Code(s): L89.629 - Pressure ulcer of left heel, unspecified stage Status: Acute Assessment and Plan: As above (8) Pressure ulcer of right heel: Code(s): L89.619 - Pressure ulcer of right heel, unspecified stage Status: Acute Assessment and Plan: As above (9) Insulin dependent type 2 diabetes mellitus: Code(s): E11.9 - Type 2 diabetes mellitus without complications; Z79.4 - half-way (current) use of insulin Status: Acute Assessment and Plan: DM poorly controlled with A1c 13.7. Patient not eating much. Lantus was resumed and advanced. Novolog at meals was added. Glucose better controlled related to her not eating much. Will reduce Lantus. Stop meal time insulin. Continue Accu-Cheks covering with sliding scale insulin. Hypoglycemic protocol available as needed. (10) Chronic kidney disease: Code(s): N18.9 - Chronic kidney disease, unspecified Status: Acute Assessment and Plan: As above. Baseline Cr 1.4-1.7 (11) Hypertension: Code(s): I10 - Essential (primary) hypertension Status: Acute Assessment and Plan: Patient's blood pressure was reviewed on 02/23 Blood pressure remains well controlled. Lisinopril on hold (12) Bedbound: Code(s): Z74.01 - Bed confinement status Status: Acute Assessment and Plan: Contributing to her bedsores (13) Abnormal urinalysis: Code(s): R82.90 - Unspecified abnormal findings in urine Status: Acute Assessment and Plan: UA noted. UCx negative; UTI ruled out. Subject
[2023-02-23 11:45] LABS: Glucose Point of Care 121 mg/dl (65-105)
[2023-02-23 12:00] VITALS: BP 108/63; PULSE 103; RESP 20; TEMP 37.1; O2SAT 92
[2023-02-23] MEDS: MORPHINE SULFATE (*CRX) 2 MG/ML INJ IV PUSH ×2 (12:47→21:10)
[2023-02-23] MEDS: CEFEPIME 2 GM/NS 50 ML 2 GM/50 ML BAG IVPB (14:27)
[2023-02-23] MEDS: MORPHINE SULFATE (*CRX) 4 MG/ML INJ IV PUSH (16:21)
[2023-02-23 16:52] LABS: Glucose Point of Care 158 mg/dl (65-105)
[2023-02-23 20:00] VITALS: BP 134/72; PULSE 95; RESP 16; TEMP 37; O2SAT 94
[2023-02-23 20:51] LABS: Glucose Point of Care 142 mg/dl (65-105)
[2023-02-23] MEDS: INSULIN GLARGINE (*BKC) 100 UNITS/ML 20 UNITS SUB-Q (20:58)
[2023-02-24] VITALS (7 sets, daily range): BP systolic 105–141; BP diastolic 49–82; PULSE 80–96; RESP 16–20; TEMP 36.2–36.7; O2SAT 91–97
[2023-02-24] MEDS: MECLIZINE HCL 25 MG TABLET PO ×4 (02:47→20:46)
[2023-02-24 04:49] LABS: Basophils Absolute Auto 0.1 K/mm3 (0.0-0.1); Basophils Percent Auto 0.7 % (0.2-1.2); Eosinophils Absolute Auto 0.5 K/mm3 (0-0.3); Eosinophils Percent Auto 3.8 % (0-4.4); Hematocrit 30.4 % (37.0-47.0); Hemoglobin 9.6 g/dL (12.0-15.0); Immature Granulocyte Absolute 0.26 K/mm3 (0.00-0.031); Immature Granulocyte Percent A 2.1 % (0-0.5); Lymphocytes Absolute Auto 1.36 K/mm3 (0.9-3.2); Lymphocytes Percent Auto 10.8 % (18.3-44.2); Mean Corpuscular HGB Conc 31.6 g/dl (32-36); Mean Corpuscular Hemoglobin 29.8 pg (26-34); Mean Corpuscular Volume 94.4 fl (80-100); Mean Platelet Volume 9.2 fl (7.4-10.4); Monocytes Absolute Auto 0.8 K/mm3 (0.1-0.6); Monocytes Percent Auto 6.6 % (2.6-8.5); Neutrophils Absolute Auto 9.5 K/mm3 (1.3-6.7); Platelet Count Result 582 k/mm3 (150-375); Red Blood Count 3.22 M/mm3 (4.2-5.4); Red Cell Distribution Width 14.5 % (11.5-14.5); White Blood Count 12.5 K/mm3 (4.5-10.0)
[2023-02-24] MEDS: CENTRAL LINE FLUSH 10 ML IV PUSH ×3 (05:22→22:49)
[2023-02-24] MEDS: metroNIDAZOLE 500 MG/ISO 100ML 500 MG/100 ML BAG 100 MG IVPB ×3 (05:22→20:46)
[2023-02-24 05:44] LABS: Albumin Level 3.2 g/dL (3.5-5.1); Anion Gap 7 mmol/L (8-16); Blood Urea Nitrogen 46 mg/dL (7-17); Calcium 9.8 mg/dL (8.4-10.2); Carbon Dioxide 22 mmol/L (22-30); Chloride 109 mmol/L (98-107); Estimated CRCL calculation 41 ml/min; Estimated Glomerular Filt Rate 43; Glucose 94 mg/dL (65-110); Magnesium 1.8 mg/dL (1.6-2.3); Phosphorus 2.8 mg/dL (2.5-4.5); Potassium 5.6 mmol/L (3.4-5.0); Sodium 138 mmol/L (137-145)
[2023-02-24] MEDS: SODIUM CHLORIDE 0.9% IV 1,000 ML 70 ML IV CONT ×2 (06:48→21:40)
[2023-02-24 08:00] LABS: Glucose Point of Care 91 mg/dl (65-105)
[2023-02-24] MEDS: MORPHINE SULFATE (*CRX) 2 MG/ML INJ IV PUSH ×2 (08:40→22:41)
[2023-02-24] MEDS: ACETAMINOPHEN 325 MG TABLET 650 MG PO (08:41)
[2023-02-24] MEDS: SILVERGEL (ELTA) 45 ML 1 APPLIC TOPICAL (09:00)
--- NOTE | 2023-02-24 09:00 | PC.NURSE ---
Dr Islas notified of patient's potassium level of 5.6
[2023-02-24] MEDS: ENOXAPARIN 40 MG/0.4 ML SYRINGE SUB-Q (09:55)
[2023-02-24] MEDS: ONDANSETRON INJ 4 MG/2 ML VIAL IV PUSH (09:55)
[2023-02-24] MEDS: FENOFIBRATE 160 MG TABLET PO (09:57)
[2023-02-24] MEDS: allopurinoL 300 MG TABLET PO (09:57)
[2023-02-24] MEDS: ASPIRIN 81 MG ENTERIC TABLET PO (09:57)
[2023-02-24 11:39] LABS: Glucose Point of Care 75 mg/dl (65-105)
[2023-02-24] MEDS: CEFEPIME 2 GM/NS 50 ML 2 GM/50 ML BAG IVPB (13:17)
[2023-02-24 16:35] LABS: Glucose Point of Care 143 mg/dl (65-105)
[2023-02-24] MEDS: oxyCODONE HCL (*CRX) 2.5 MG TAB IR PO (17:24)
--- NOTE | 2023-02-24 19:26 | PM.IMPN ---
Progress Note: A&P Assessment and Plan (1) Altered mental status: Code(s): R41.82 - Altered mental status, unspecified Status: Acute Assessment and Plan: Appears to be resolving, monitor (2) Sepsis: Code(s): A41.9 - Sepsis, unspecified organism Status: Acute Assessment and Plan: The patient presented to the emergency department for evaluation of worsening pressure ulcers with some that are unstageable. She underwent excisional debridement in the OR 02/22/23. BCx collected and broad-spectrum antibiotics started including vancomycin, cefepime, and metronidazole. BCx returned positive for Staph hominis. UCx negative; UTI ruled out. WCx growing gram negative bacilli. Appreciate GenSurg input. Follow up on final cultures. Continue current abx repeat blood cultures pending (3) Bacteremia: Code(s): R78.81 - Bacteremia Status: Acute Assessment and Plan: As above (4) MIRIAM (acute kidney injury): Code(s): N17.9 - Acute kidney failure, unspecified Status: Acute Assessment and Plan: Patient has underlying CKD. Cr up to 2.0. Could be prerenal and/or ATN. Long discussion with patient and family about needing IV access on 02/22. They do not feel she would consider dialysis and are okay with having PICC line placed. They understand that this can scar veins that may need to be used later for dialysis access. PICC line placed. She was started on IV fluids. Lisinopril on hold due to soft BP and MIRIAM. Renal US normal resolving, 1.2 (5) Decubitus ulcer of coccygeal region, unstageable: Code(s): L89.150 - Pressure ulcer of sacral region, unstageable Status: Deleted Assessment and Plan: The patient presented to the emergency department for evaluation of worsening pressure ulcers with some that are unstageable. She underwent excisional debridement in the OR 02/22/23. Culture results as above. Continue current dressing changes. Appreciate GenSurg input. 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 Patient not eating much. Lantus was resumed and advanced. Novolog at meals was added. Glucose better controlled related to her not eating much. Will reduce Lantus. Stop meal time insulin. Continue Accu-Cheks covering with sliding scale insulin. Hypoglycemic protocol available as needed. (10) Chronic kidney disease: Code(s): N18.9 - Chronic kidney disease, unspecified Status: Acute Assessment and Plan: As above. Baseline Cr 1.4-1.7 (11) Hypertension: Code(s): I10 - Essential (primary) hypertension Status: Acute Assessment and Plan: Patient's blood pressure was reviewed on 02/24 Blood pressure remains well controlled. Lisinopril on hold (12) Bedbound: Code(s): Z74.01 - Bed confinement status Status: Acute Assessment and Plan: Contributing to her bedsores (13) Abnormal urinalysis: Code(s): R82.90 - Unspecified abnormal findings in urine Status: Acute Assessment and Plan: UA noted. UCx negative; UTI ruled out. Plan DVT prophylaxis with SCDs GI prophylaxis not indicated Code status full code Subjective Date/time seen: 02/24/23 19:26 Interval
[2023-02-24] MEDS: INSULIN GLARGINE (*BKC) 100 UNITS/ML 20 UNITS SUB-Q (20:48)
[2023-02-25] VITALS: BP 120/58; PULSE 85; RESP 16; TEMP 36.5; O2SAT 94
[2023-02-25] MEDS: MECLIZINE HCL 25 MG TABLET PO ×4 (02:16→20:53)
[2023-02-25 04:00] VITALS: BP 112/59; PULSE 102; RESP 18; TEMP 36.4; O2SAT 94
[2023-02-25 04:33] LABS: Glucose Point of Care 158 mg/dl (65-105)
[2023-02-25] MEDS: metroNIDAZOLE 500 MG/ISO 100ML 500 MG/100 ML BAG 100 MG IVPB ×3 (05:57→22:06)
[2023-02-25] MEDS: CENTRAL LINE FLUSH 10 ML IV PUSH ×2 (05:58→22:06)
[2023-02-25 06:28] LABS: Estimated CRCL calculation 45 ml/min; Estimated Glomerular Filt Rate 48
[2023-02-25] MEDS: MORPHINE SULFATE (*CRX) 2 MG/ML INJ IV PUSH ×2 (06:31→19:04)
[2023-02-25 08:00] VITALS: BP 114/65; PULSE 95; RESP 20; TEMP 36.8; O2SAT 98
[2023-02-25 08:02] LABS: Glucose Point of Care 130 mg/dl (65-105)
[2023-02-25] MEDS: allopurinoL 300 MG TABLET PO (08:06)
[2023-02-25] MEDS: ACETAMINOPHEN 325 MG TABLET 650 MG PO (08:06)
[2023-02-25] MEDS: ONDANSETRON INJ 4 MG/2 ML VIAL IV PUSH (08:06)
[2023-02-25] MEDS: oxyCODONE HCL (*CRX) 2.5 MG TAB IR PO (08:07)
[2023-02-25] MEDS: ENOXAPARIN 40 MG/0.4 ML SYRINGE SUB-Q (08:07)
[2023-02-25] MEDS: FENOFIBRATE 160 MG TABLET PO (08:07)
[2023-02-25] MEDS: ASPIRIN 81 MG ENTERIC TABLET PO (08:07)
[2023-02-25] MEDS: SILVERGEL (ELTA) 45 ML 1 APPLIC TOPICAL (09:00)
[2023-02-25 11:38] LABS: Glucose Point of Care 188 mg/dl (65-105)
[2023-02-25 12:00] VITALS: BP 111/43; PULSE 96; RESP 20; TEMP 36.4; O2SAT 94
--- NOTE | 2023-02-25 12:58 | PM.IMPN ---
Progress Note: A&P Assessment and Plan (1) Altered mental status: Code(s): R41.82 - Altered mental status, unspecified Status: Acute Assessment and Plan: Appears to be resolving, monitor (2) Sepsis: Code(s): A41.9 - Sepsis, unspecified organism Status: Acute Assessment and Plan: The patient presented to the emergency department for evaluation of worsening pressure ulcers with some that are unstageable. She underwent excisional debridement in the OR 02/22/23. BCx collected and broad-spectrum antibiotics started including vancomycin, cefepime, and metronidazole. BCx returned positive for Staph hominis. UCx negative; UTI ruled out. WCx growing gram negative bacilli. Appreciate GenSurg input. Follow up on final cultures. Continue current abx repeat blood cultures pending (3) Bacteremia: Code(s): R78.81 - Bacteremia Status: Acute Assessment and Plan: As above (4) MIRIAM (acute kidney injury): Code(s): N17.9 - Acute kidney failure, unspecified Status: Acute Assessment and Plan: Patient has underlying CKD. Cr up to 2.0. Could be prerenal and/or ATN. Long discussion with patient and family about needing IV access on 02/22. They do not feel she would consider dialysis and are okay with having PICC line placed. They understand that this can scar veins that may need to be used later for dialysis access. PICC line placed. She was started on IV fluids. Lisinopril on hold due to soft BP and MIRIAM. Renal US normal resolving, 1.2 (5) Decubitus ulcer of coccygeal region, unstageable: Code(s): L89.150 - Pressure ulcer of sacral region, unstageable Status: Deleted Assessment and Plan: The patient presented to the emergency department for evaluation of worsening pressure ulcers with some that are unstageable. She underwent excisional debridement in the OR 02/22/23. Culture results as above. Continue current dressing changes. Appreciate GenSurg input. 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 Patient not eating much. Lantus was resumed and advanced. Novolog at meals was added. Glucose better controlled related to her not eating much. Will reduce Lantus. Stop meal time insulin. Continue Accu-Cheks covering with sliding scale insulin. Hypoglycemic protocol available as needed. Blood glucose reviewed 02/25 (10) Chronic kidney disease: Code(s): N18.9 - Chronic kidney disease, unspecified Status: Acute Assessment and Plan: As above. Baseline Cr 1.4-1.7 (11) Hypertension: Code(s): I10 - Essential (primary) hypertension Status: Acute Assessment and Plan: Patient's blood pressure was reviewed on 02/25 Blood pressure remains well controlled. Lisinopril on hold (12) Bedbound: Code(s): Z74.01 - Bed confinement status Status: Acute Assessment and Plan: Contributing to her bedsores (13) Abnormal urinalysis: Code(s): R82.90 - Unspecified abnormal findings in urine Status: Acute Assessment and Plan: UA noted. UCx negative; UTI ruled out. Plan DVT prophylaxis with SCDs GI prophylaxis not indicated Code status full code Subjective Date/time seen:
[2023-02-25] MEDS: oxyCODONE HCL (*CRX) 5 MG TAB IR PO ×2 (13:17→20:52)
[2023-02-25] MEDS: SODIUM CHLORIDE 0.9% IV 1,000 ML 70 ML IV CONT (14:06)
[2023-02-25] MEDS: CEFEPIME 2 GM/NS 50 ML 2 GM/50 ML BAG IVPB (14:06)
[2023-02-25 16:00] VITALS: BP 104/61; PULSE 95; RESP 20; TEMP 36.7; O2SAT 96
[2023-02-25 16:12] LABS: Glucose Point of Care 189 mg/dl (65-105)
[2023-02-25 20:00] VITALS: BP 131/58; PULSE 100; RESP 16; TEMP 37.5; O2SAT 93
[2023-02-25] MEDS: DOCUSATE SODIUM 100 MG CAPSULE PO (20:52)
[2023-02-25] MEDS: INSULIN GLARGINE (*BKC) 100 UNITS/ML 20 UNITS SUB-Q (21:13)
[2023-02-25 21:38] LABS: Glucose Point of Care 270 mg/dl (65-105)
[2023-02-26] MEDS: SODIUM CHLORIDE 0.9% IV 1,000 ML 70 ML IV CONT (04:57)
[2023-02-26] MEDS: metroNIDAZOLE 500 MG/ISO 100ML 500 MG/100 ML BAG 100 MG IVPB ×2 (04:58→13:42)
[2023-02-26] MEDS: CENTRAL LINE FLUSH 10 ML IV PUSH ×3 (04:59→20:11)
[2023-02-26] MEDS: MORPHINE SULFATE (*CRX) 2 MG/ML INJ IV PUSH (05:50)
[2023-02-26] MEDS: MECLIZINE HCL 25 MG TABLET PO ×3 (05:50→20:14)
[2023-02-26 08:00] VITALS: BP 121/62; PULSE 94; RESP 16; TEMP 37; O2SAT 99
[2023-02-26 08:23] LABS: Glucose Point of Care 162 mg/dl (65-105)
[2023-02-26] MEDS: ASPIRIN 81 MG ENTERIC TABLET PO (09:06)
[2023-02-26] MEDS: ENOXAPARIN 40 MG/0.4 ML SYRINGE SUB-Q (09:06)
[2023-02-26] MEDS: FENOFIBRATE 160 MG TABLET PO (09:06)
[2023-02-26] MEDS: allopurinoL 300 MG TABLET PO (09:06)
[2023-02-26] MEDS: DOCUSATE SODIUM 100 MG CAPSULE PO (09:06)
[2023-02-26] MEDS: SILVERGEL (ELTA) 45 ML 1 APPLIC TOPICAL (09:11)
--- NOTE | 2023-02-26 10:42 | PM.IMPN ---
Progress Note: A&P Assessment and Plan (1) Altered mental status: Code(s): R41.82 - Altered mental status, unspecified Status: Acute Assessment and Plan: Resolved (2) Sepsis: Code(s): A41.9 - Sepsis, unspecified organism Status: Acute Assessment and Plan: The patient presented to the emergency department for evaluation of worsening pressure ulcers with some that are unstageable. She underwent excisional debridement in the OR 02/22/23. BCx collected and broad-spectrum antibiotics started including vancomycin, cefepime, and metronidazole 02/20. BCx returned positive for Staph hominis. UCx negative; UTI ruled out. WCx growing MSSA + providencia. Appreciate GenSurg input. Repeat blood cultures pending, NGTD. Plan to transition to po Keflex and Cipro to complete a 10 day course (3) Bacteremia: Code(s): R78.81 - Bacteremia Status: Acute Assessment and Plan: As above (4) MIRIAM (acute kidney injury): Code(s): N17.9 - Acute kidney failure, unspecified Status: Acute Assessment and Plan: Patient has underlying CKD. Cr up to 2.0. Could be prerenal and/or ATN. Long discussion with patient and family about needing IV access on 02/22. They do not feel she would consider dialysis and are okay with having PICC line placed. They understand that this can scar veins that may need to be used later for dialysis access. PICC line placed. She was started on IV fluids. Lisinopril on hold due to soft BP and MIRIAM. Renal US normal resolving, 1.2 (5) Decubitus ulcer of coccygeal region, unstageable: Code(s): L89.150 - Pressure ulcer of sacral region, unstageable Status: Deleted Assessment and Plan: The patient presented to the emergency department for evaluation of worsening pressure ulcers with some that are unstageable. She underwent excisional debridement in the OR 02/22/23. Culture results as above. Continue current dressing changes. Appreciate GenSurg input. (6) Decubitus ulcer of hip, left, unstageable: Code(s): L89.220 - Pressure ulcer of left hip, unstageable Status: Acute Assessment and Plan: As above (7) Pressure ulcer of left heel: Code(s): L89.629 - Pressure ulcer of left heel, unspecified stage Status: Acute Assessment and Plan: As above (8) Pressure ulcer of right heel: Code(s): L89.619 - Pressure ulcer of right heel, unspecified stage Status: Acute Assessment and Plan: As above (9) Insulin dependent type 2 diabetes mellitus: Code(s): E11.9 - Type 2 diabetes mellitus without complications; Z79.4 - group home (current) use of insulin Status: Acute Assessment and Plan: DM poorly controlled with A1c 13.7. Patient not eating much. Lantus was resumed and advanced. Novolog at meals was added. Glucose better controlled related to her not eating much. Will reduce Lantus. Stop meal time insulin. Continue Accu-Cheks covering with sliding scale insulin. Hypoglycemic protocol available as needed. Blood glucose reviewed 02/26 (10) Chronic kidney disease: Code(s): N18.9 - Chronic kidney disease, unspecified Status: Acute Assessment and Plan: As above. Baseline Cr 1.4-1.7 (11) Hypertension: Code(s): I10 - Essential (primary) hypertension Status: Acute Assessment and Plan: Patient's blood pressure was reviewed on 02/26 Blood pressure remains well controlled. Lisinopril on hold (12) Bedbound: Code(s): Z74.01 - Bed confinement status Status: Acute Assessment and Plan: Contributing to her bedsores (13) Abnormal urinalysis: Code(s): R82.90 - Unspecified abnormal findings in urine Status: Acute Assessment and Plan: UA noted. UCx negative; UTI ruled out. Plan DVT prophylaxis with SCDs GI prophylaxis not indicated Code status full code
[2023-02-26 10:43] LABS: Vancomycin Trough 21.1 ug/mL (10.0-20.0)
[2023-02-26 11:32] LABS: Glucose Point of Care 210 mg/dl (65-105)
[2023-02-26] MEDS: INSULIN ASPART (*BKC) 100 UNITS/ML SUB-Q (12:16)
[2023-02-26] MEDS: oxyCODONE HCL (*CRX) 5 MG TAB IR PO ×2 (12:27→20:14)
[2023-02-26] MEDS: CEFEPIME 2 GM/NS 50 ML 2 GM/50 ML BAG IVPB (13:42)
--- NOTE | 2023-02-26 13:42 | PM.PNGS ---
Progress Note: A&P Assessment and Plan (1) Decubitus ulcer of sacral region, stage 4: Code(s): L89.154 - Pressure ulcer of sacral region, stage 4 Status: Acute Assessment and Plan: Continue daily dressing changes. Will need to continue local wound care and limit pressure to prevent further tissue damage or infection. Ok to discharge from surgical standpoint. (2) Decubitus ulcer of hip, left, unstageable: Code(s): L89.220 - Pressure ulcer of left hip, unstageable Status: Acute Assessment and Plan: No drainage or erythema. Continue local wound care. (3) Insulin dependent type 2 diabetes mellitus: Code(s): E11.9 - Type 2 diabetes mellitus without complications; Z79.4 - residential (current) use of insulin Status: Acute (4) Bedbound: Code(s): Z74.01 - Bed confinement status Status: Acute Subjective Subjective Date/Time Seen: 02/26/23 13:42 Interval history: Patient only complaining of itching and dizziness. Tolerating dressing changes. No fevers. Exam Back/Spine/Pelvis: Sacrum: other (Sacral wound with heathy wound edges. No purulent drainage.) Other: Left hip wound with dry eschar, skin around edges healthy. Objective Data Vital Signs Vital Signs: Vital Signs - 24 hr 02/25/23 16:00 02/25/23 20:00 02/25/23 20:00 Temperature 36.7 C 37.5 C Pulse Rate 95 100 100 Respiratory Rate 20 16 16 Blood Pressure 104/61 131/58 L Pulse Oximetry 96 93 93 Oxygen Delivery Room Air 02/26/23 08:00 02/26/23 08:00 Temperature 37.0 C Pulse Rate 94 Respiratory Rate 16 Blood Pressure 121/62 Pulse Oximetry 99 Oxygen Delivery Room Air Intake/Output Intake/Output: Intake & Output 02/23/23 02/24/23 02/25/23 02/26/23 23:59 23:59 23:59 23:59 Intake Total 2050 2410 3452 1710 Output Total 1700 1950 2650 750 Balance 350 460 802 960 Meds/Results Medications: Active Medications Generic Name Dose Route Start Last Admin Trade Name Freq PRN Reason Stop Dose Admin Acetaminophen 650 mg 02/20/23 12:44 02/25/23 08:06 Acetaminophen 325 Mg Tablet PO 650 mg Q6H PRN Administration Mild Pain (1-3) or Fever Allopurinol 300 mg 02/21/23 09:00 02/26/23 09:06 Allopurinol 300 Mg Tablet PO 300 mg DAILY DAMON Administration Aspirin 81 mg 02/21/23 09:00 02/26/23 09:06 Aspirin 81 Mg Enteric Tablet PO 81 mg DAILY DAMON Administration Dextrose 12.5 gm 02/21/23 00:09 Dextrose 50% 25 Gm/50 Ml Syringe IV PUSH PRN PRN Hypoglycemia Protocol Docusate Sodium 100 mg 02/25/23 21:00 02/26/23 09:06 Docusate Sodium 100 Mg Capsule PO 100 mg DAILY DAMON Administration Enoxaparin Sodium 40 mg 02/22/23 09:00 02/26/23 09:06 Enoxaparin 40 Mg/0.4 Ml Syringe SUB-Q 40 mg DAILY DAMON Administration Fenofibrate 160 mg 02/21/23 09:00 02/26/23 09:06 Fenofibrate 160 Mg Tablet PO 160 mg DAILY DAMON Administration Glucagon 1 mg 02/21/23 00:09 Glucagon For Inj 1 Mg Vial IM PRN PRN Hypoglycemia Protocol Glucose 15 gm 02/21/23 00:09 Glucose Oral Gel 15 Gm Of Glucse In 37.5 Gm Tube PO PRN PRN Hypoglycemia Protocol Metronidazole 500 mg in 100 mls @ 100 mls/hr 02/20/23 14:00 02/26/23 04:58 Flagyl 500 Mg/Iso Soln 100 Ml IVPB 100 mls/hr Q8HR DAMON Administration Dextrose 1,000 mls @ 100 mls/hr 02/21/23 00:09 Dextrose 5% 1,000 Ml IVPB PRN PRN Hypoglycemia Protocol Sodium Chloride 1,000 mls @ 70 mls/hr 02/22/23 08:10 02/26/23 04:57 Normal Saline Iv IV CONT 70 mls/hr .[id number] DAMON Administration Cefepime HCl 2 gm in 50 mls @ 100 mls/hr 02/22/23 13:00 02/25/23 14:36 Maxipime 2 Gm/Ns 50 Ml IVPB Infused Q24H DAMON Infusion Vancomycin HCl 1,500 mg in 500 mls @ 250 mls/hr 02/26/23 23:00 Vancomycin 1,500 Mg/D5w 500 Ml IVPB Q48H [facility] Insulin Aspart 4 - 8 units 02/22/23 08:00 02/26/23 12:16 Insulin Aspart (*
--- NOTE | 2023-02-26 14:58 | PM.DS ---
DS: Admitting Diagnosis Discharge Date 02/26/23 Admitting Diagnosis painful bedsore DS: Discharge Diagnosis Discharge Diagnosis (1) Altered mental status: Code(s): R41.82 - Altered mental status, unspecified Status: Acute Assessment and Plan: Resolved (2) Sepsis: Code(s): A41.9 - Sepsis, unspecified organism Status: Acute Assessment and Plan: The patient presented to the emergency department for evaluation of worsening pressure ulcers with some that are unstageable. She underwent excisional debridement in the OR 02/22/23. BCx collected and broad-spectrum antibiotics started including vancomycin, cefepime, and metronidazole 02/20. BCx returned positive for Staph hominis. UCx negative; UTI ruled out. WCx growing MSSA + providencia. Appreciate GenSurg input. Repeat blood cultures pending, NGTD. Plan to transition to po Keflex and Cipro to complete a 10 day course (3) Bacteremia: Code(s): R78.81 - Bacteremia Status: Acute Assessment and Plan: As above (4) MIRIAM (acute kidney injury): Code(s): N17.9 - Acute kidney failure, unspecified Status: Acute Assessment and Plan: Patient has underlying CKD. Cr up to 2.0. Could be prerenal and/or ATN. Long discussion with patient and family about needing IV access on 02/22. They do not feel she would consider dialysis and are okay with having PICC line placed. They understand that this can scar veins that may need to be used later for dialysis access. PICC line placed. She was started on IV fluids. Lisinopril on hold due to soft BP and MIRIAM. Renal US normal resolving, 1.2 (5) Decubitus ulcer of coccygeal region, unstageable: Code(s): L89.150 - Pressure ulcer of sacral region, unstageable Status: Deleted Assessment and Plan: The patient presented to the emergency department for evaluation of worsening pressure ulcers with some that are unstageable. She underwent excisional debridement in the OR 02/22/23. Culture results as above. Continue current dressing changes. Appreciate GenSurg input. (6) Decubitus ulcer of hip, left, unstageable: Code(s): L89.220 - Pressure ulcer of left hip, unstageable Status: Acute Assessment and Plan: As above (7) Pressure ulcer of left heel: Code(s): L89.629 - Pressure ulcer of left heel, unspecified stage Status: Acute Assessment and Plan: As above (8) Pressure ulcer of right heel: Code(s): L89.619 - Pressure ulcer of right heel, unspecified stage Status: Acute Assessment and Plan: As above (9) Insulin dependent type 2 diabetes mellitus: Code(s): E11.9 - Type 2 diabetes mellitus without complications; Z79.4 - roasterman (current) use of insulin Status: Acute Assessment and Plan: DM poorly controlled with A1c 13.7. Patient not eating much. Lantus was resumed and advanced. Novolog at meals was added. Glucose better controlled related to her not eating much. Will reduce Lantus. Stop meal time insulin. Continue Accu-Cheks covering with sliding scale insulin. Hypoglycemic protocol available as needed. Blood glucose reviewed 02/26 (10) Chronic kidney disease: Code(s): N18.9 - Chronic kidney disease, unspecified Status: Acute Assessment and Plan: As above. Baseline Cr 1.4-1.7 (11) Hypertension: Code(s): I10 - Essential (primary) hypertension Status: Acute Assessment and Plan: Patient's blood pressure was reviewed on 02/26 Blood pressure remains well controlled. Lisinopril on hold (12) Bedbound: Code(s): Z74.01 - Bed confinement status Status: Acute Assessment and Plan: Contributing to her bedsores (13) Abnormal urinalysis: Code(s): R82.90 - Unspecified abnormal findings in urine Status: Acute Assessment and Plan: UA noted. UCx negative; UTI ruled out.
[2023-02-26 16:00] VITALS: BP 125/60; PULSE 95; RESP 20; TEMP 36.6; O2SAT 94
[2023-02-26 16:32] LABS: Glucose Point of Care 157 mg/dl (65-105)
[2023-02-26] MEDS: CIPROFLOXACIN 500 MG TAB PO (18:24)
[2023-02-26] MEDS: CEPHALEXIN 500 MG CAPSULE PO ×2 (18:24→23:13)
--- NOTE | 2023-02-26 18:35 | PC.NURSE ---
Daughter was concerned about discharge due to not having the supplies at home or having talked to the doctor.She states she has multiple questions for each doctor and would like to talk to care coordination about getting the supplies sent to the house. I called and talked to doctor Marion and she stated that the patients discharge can be post postponed until tomorrow. I showed the daughter how to change the patients dressing and left a message with care coordination about coming to see the patient and daughter tomorrow morning. Will pass along in report that the daughter wants to speak to the doctors and care coordination tomorrow.
[2023-02-26] MEDS: ONDANSETRON INJ 4 MG/2 ML VIAL IV PUSH (20:11)
[2023-02-26 21:32] LABS: Glucose Point of Care 193 mg/dl (65-105)
[2023-02-26] MEDS: INSULIN GLARGINE (*BKC) 100 UNITS/ML 20 UNITS SUB-Q (23:12)
[2023-02-26 23:23] VITALS: BP 136/54; PULSE 99; RESP 16; TEMP 36.8; O2SAT 93
[2023-02-27] MEDS: oxyCODONE HCL (*CRX) 5 MG TAB IR PO ×3 (03:30→16:51)
[2023-02-27] MEDS: CENTRAL LINE FLUSH 10 ML IV PUSH (05:46)
[2023-02-27] MEDS: CEPHALEXIN 500 MG CAPSULE PO ×2 (05:48→13:08)
[2023-02-27] MEDS: CIPROFLOXACIN 500 MG TAB PO (05:48)
[2023-02-27 06:06] VITALS: BP 141/77; PULSE 95; RESP 16; TEMP 36.5; O2SAT 96
--- NOTE | 2023-02-27 06:47 | PC.NURSE ---
refuses turns, minimal change of position done all shift - pt refuses turns
[2023-02-27 07:52] LABS: Glucose Point of Care 122 mg/dl (65-105)
[2023-02-27] MEDS: DOCUSATE SODIUM 100 MG CAPSULE PO (09:42)
[2023-02-27] MEDS: FENOFIBRATE 160 MG TABLET PO (09:42)
[2023-02-27] MEDS: ASPIRIN 81 MG ENTERIC TABLET PO (09:42)
[2023-02-27] MEDS: allopurinoL 300 MG TABLET PO (09:43)
[2023-02-27] MEDS: ENOXAPARIN 40 MG/0.4 ML SYRINGE SUB-Q (09:43)
[2023-02-27] MEDS: SILVERGEL (ELTA) 45 ML 1 APPLIC TOPICAL (09:44)
[2023-02-27 11:47] LABS: Glucose Point of Care 177 mg/dl (65-105)
--- NOTE | 2023-02-27 11:55 | PCNFU ---
Nutrition Follow-Up Complete: Moderate malnutrition related to chronic illness of wounds, increased needs, decreased appetite as evidenced by weight loss -7%/1 month, intakes <75% needs >1 month. Goal:Adequate PO intake at least 75% meals and supplements Maintain weight during admission Pt current nutrition is Diabetic consistent carb, VELMA and Glucerna shakes BID. Nutrition recommendation: continue with current plan of care Last recorded weight is 92.2 kg - increased from 84.5kg on admission. Bowel Motility: +BM 02/23 Labs Reviewed: gluc:122 Meds Noted: lantus Skin: unstageable to coccyx, L heel, DTPI to R heel Additional Notes: Pt continues on a regular diet, intake varied, supplements in place per recommendation. Encourage intake of meals and supplements. Monitor intake, wt, labs, skin. Follow up in 7 days.
[2023-02-27 16:00] VITALS: BP 138/66; PULSE 106; RESP 18; TEMP 36.2; O2SAT 95
[2023-02-27 16:28] LABS: Glucose Point of Care 195 mg/dl (65-105)
== END 2023-02-27 18:45 | disposition home health service (06) | DRG 853 ==
LOC: ANHED 11:33 → ANH3MEDSUR 11:53
PROVIDERS: Internal Medicine; Physician Assistant; Surgery; Admitting Provider Internal Medicine; Emergency Provider Nurse Practitioner Family; PCP Internal Medicine; Visit Provider Student in an Organized Health Care Education/Training Program
PROC: 0LBK0ZZ Excision of Left Hip Tendon, Open Approach (ICD-10-PCS; CPT 46040; principal; 2023-02-21 10:30)
DX: A41.9 Sepsis, unspecified organism (principal); L89.154 Pressure ulcer of sacral region, stage 4; N17.0 Acute kidney failure with tubular necrosis; L03.317 Cellulitis of buttock; L89.220 Pressure ulcer of left hip, unstageable; B95.7 Other staphylococcus as the cause of diseases classified elsewhere; B95.61 Methicillin susceptible Staphylococcus aureus infection as the cause of diseases classified elsewhere; L89.619 Pressure ulcer of right heel, unspecified stage; L89.629 Pressure ulcer of left heel, unspecified stage; B96.89 Other specified bacterial agents as the cause of diseases classified elsewhere; I12.9 Hypertensive chronic kidney disease with stage 1 through stage 4 chronic kidney disease, or unspecified chronic kidney disease; E11.22 Type 2 diabetes mellitus with diabetic chronic kidney disease; N18.9 Chronic kidney disease, unspecified; R32 Unspecified urinary incontinence; Z74.01 Bed confinement status; Z79.4 Long term (current) use of insulin
CPT/HCPCS: 36415; 36569; 70450; 72220; 76775; 80053; 80069; 80202; 81001; 82565; 82570; 82948; 83036; 83605; 83690; 83735; 84100; 84300; 85025; 85027; 85999; 86140; 87040; 87070; 87077; 87086; 87088; 87147; 87181; 87186; 87205; 96365; 96366; 96367; 96375; 96376; 99285; A9270; C1751; G0378; J0330; J0692; J1650; J1815; J2270; J2370; J2405; J2704; J3010; J3370; J7030; J7120

== ENCOUNTER 2023-08-05 09:38 | Inpatient (IN) | payer MEDICARE, SELFPAY ==
[2023-08-05] VITALS (20 sets, daily range): BP systolic 74–149; BP diastolic 42–100; PULSE 97–115; RESP 14–23; TEMP 36.3–36.6; O2SAT 90–99; BMI 26.1
--- NOTE | ~2023-08-05 | XR_ITS ---
XR chest PICC line 08/08/2023 08:34 Indication: PICC line placement Procedure: AP portable chest Comparison: 08/05/2023 Findings: Right subclavian PICC line tip in the SVC. Heart size normal. No focal air space disease, p ulmonary edema, pleural effusion or suspected pneumothorax. 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 No acute osseous abnormality. Impression: 1: No acute cardiopulmonary disease. Reviewed, dictated and finalized at location B. Impression: 1: No acute cardiopulmonary disease.
--- NOTE | ~2023-08-05 | CT_ITS ---
EXAMINATION: CT abd pelvis lumbar wo con DATE: 08/05/2023 13:04 INDICATION: Suprapubic pain. Bed sores. Osteomyelitis. TECHNIQUE: Computed tomography (CT) of the abdomen and pelvis and lumbar spine was performed without intravenous contrast. Automated exposure control and iterative reconstruction technique were employed . Exam dose: 1087.60 mGy-cm total exam DLP. COMPARISON: 09/22/2019 CT abdomen pelvis FINDINGS: Minimal bilateral lower lobe dependent atelectasis. Normal heart size. Coronary artery calcifications. No pericardial or pleural effusion. Status post cholecystectomy. The liver, spleen, pancreas and right adrenal gland are unremarkable. No bile duct or pancreatic duct dilatation. Stable approximately 3.3 cm left adrenal myelolipoma. Approximately 2 mm nonobstructing right renal calculus. No ureteral calculus or hydroureteronephrosis is noted on either side. Multiple up to approximately 1.3 cm left renal cysts. There is a Sue catheter within the evacuated urinary bladder. There is atherosclerotic calcification but normal caliber of the abdominal aorta. Atherosclerotic emma cifications are noted at the origins of the celiac and superior mesenteric and particularly left anjelica l arteries. No abdominal aortic aneurysm. No intraperitoneal or retroperitoneal or pelvic mass lesion or adenopathy or ascites is noted. Diverticulosis of the colon. No bowel obstruction or intraperitoneal free air is detected. Fat-containing left inguinal hernia. Degenerative changes of the lower thoracic spine and multilevel degenerative disc disease of the lumb ar spine. There is very prominent degenerative change of the lumbar apophyseal joints. There is extensive abnormal soft tissue thickening in the medial right buttock area, extending into t he posterior mid and right sacral area as well as the presacral region, with subcutaneous emphysema. The findings are consistent with cellulitis and possibly gangrene and there is evidence of associated lower right sacral bone destruction consistent with osteomyelitis. IMPRESSION: Prominent soft tissue thickening and subcutaneous emphysema in the medial right buttock area, extending into the region of the right sacrum and presacral space consistent with cellulitis an d possible gangrene, with lower right sacral bone destruction consistent with osteomyelitis Reviewed, dictated and finalized at Location A. Reviewed, dictated and finalized at location A. IMPRESSION: Prominent soft tissue thickening and subcutaneous emphysema in the medial right buttock area, extending into the region of the right sacrum and p resacral space consistent with cellulitis and possible gangrene, with lower rig ht sacral bone destruction consistent with osteomyelitis
--- NOTE | ~2023-08-05 | XR_ITS ---
Portable chest x-ray Comparison: 08/08/2023 Clinical History: Pain, difficult blood draw Findings: Right-sided PICC line is in satisfactory position. Lungs are clear, without focal consolid ation or pleural effusion. There is elevation of the right hemidiaphragm. Cardiomediastinal silhouet te is stable. Bones and soft tissues are unremarkable. Impression: Right-sided PICC line in place. Clear lungs. Elevation right hemidiaphragm. Reviewed, dictated and finalized at location M. Impression: Right-sided PICC line in place. Clear lungs. Elevation right hemidiaphragm.
--- NOTE | ~2023-08-05 | US_ITS ---
US renal BI 08/06/2023 10:11 Procedure: Realtime transabdominal ultrasound of the kidneys and bladder. Indication: Acute renal injury Comparison: 02/22/2023 Findings: Renal echotexture is normal bilaterally without hydronephrosis, contour deforming mass or r enal calculus. The right kidney measures 12.1 cm and left kidney measures 9.8 cm. There are left anjelica l cyst largest measuring 1.7 cm. There is a Sue catheter in the bladder. Impression: 1: Left renal cysts, largest measuring 1.7 cm. Reviewed, dictated and finalized at location B. Impression: 1: Left renal cysts, largest measuring 1.7 cm.
--- NOTE | ~2023-08-05 | XR_ITS ---
XR chest 1V portable DATE: 08/05/2023 10:51 INDICATION: Weakness TECHNIQUE: Portable supine AP view on 08/05/2023 at 1048 hours COMPARISON: 02/22/2023 portable AP chest FINDINGS: There is chronic elevation of the right diaphragm and minimal atelectasis at the right lung base. The lungs otherwise appear clear. Normal heart size. No hilar or mediastinal enlargement. Surgical clips overlie the right upper quadrant, likely due to cholecystectomy. Diffuse idiopathic skeletal hyperostosis of the thoracic spine. Osteoarthritic changes at the glenohu meral joints. IMPRESSION: Chronic elevation right diaphragm No active cardiopulmonary disease Reviewed, dictated and finalized at location A.
[2023-08-05] MEDS: DEXTROSE 50% 25 GM/50 ML SYRINGE (09:46)
[2023-08-05 09:56] LABS: Glucose Point of Care 49 mg/dl (65-105)
--- NOTE | 2023-08-05 10:08 | ED.RECABL ---
HPI - Recheck/Abnormal Lab/Rx General Chief Complaint: Recheck/Abnormal Lab/Rx Stated Complaint: LOW BG Time Seen by Provider: 08/05/23 10:03 Source: patient, family and EMS Mode of arrival: EMS Limitations: no limitations History of Present Illness HPI narrative: 78 years old white female lives with her daughter who does not have enough time to take care of her, came to the emergency room by ambulance because of general weakness, tiredness, long hours of sleep more than usual. This morning blood glucose was 59, patient did not take her medication this morning or eat her breakfast. Patient is bedbound, sacral decubitus ulcer, used to be at a [facility] and declined to stay there or go back there. Her daughter does work and have no enough time to take care of her mom.. Patient denies any fever, chills, nausea, vomiting. Been complaining of dry mouth and dry lips over 1 month. Severe lower back pain. Related Data Home Medications Medication Instructions Recorded Confirmed acetaminophen 325 mg tablet 650 mg PO Q6H PRN Pain (Scale 02/20/23 08/05/23 (Tylenol) Score 1-3) allopurinol 300 mg tablet 300 mg PO DAILY 02/20/23 08/05/23 aspirin 81 mg tablet,delayed 81 mg PO DAILY 02/20/23 08/05/23 release fenofibrate 160 mg tablet 160 mg PO DAILY 02/20/23 08/05/23 glimepiride 4 mg tablet 4 mg PO BID 02/20/23 08/05/23 insulin degludec 100 unit/mL (3 10 unit subcut DAILY 02/20/23 08/05/23 mL) subcutaneous pen (Tresiba FlexTouch U-100 insulin) insulin regular hum U-500 conc 500 See Rx Instructions .Route .COMPLEX 02/20/23 08/05/23 unit/mL(3 mL) subcut pen (Humulin R U-500 (Conc) Insulin Kwikpen) lisinopril 20 mg tablet 20 mg PO DAILY 02/20/23 08/05/23 Allergies Allergy/AdvReac Type Severity Reaction Status Date / Time No Known Allergies Allergy Verified 08/05/23 09:49 Review of Systems Review of Systems: All systems reviewed & are unremarkable except as noted in HPI and below PMFSH Past Medical History Medical History Chronic kidney disease Dyslipidemia Gout Hypertension Insulin dependent type 2 diabetes mellitus Osteoarthritis Surgical History Surgical History History of section x3 History of endoscopic retrograde cholangiopancreatography (03/2018) History of laparoscopic cholecystectomy (03/2018) Acute gangrenous cholecystitis. Status post excisional debridement (01/2023) Sacral decubitus ulcer. Family History Family History Father Bladder cancer Mother Colon cancer Other Breast cancer Grandparent Diabetes mellitus Social History Social History Social History: Surrogate medical decision maker: Denise Mehta, daughter. Code status: Do not resuscitate. Smoking status: Never smoker Alcohol intake: never Substance use: never Substance use type: does not use Lack of Transportation: No Lack of Food: Never True Current Housing: I Do Not Have Housing Concerned About Future Housing: No Difficulty Paying Gas/Electric Bills: No Difficulty Paying for Meds: No Currently Unemployed: No Education: High School Diploma/GED Difficulty w/ Childcare or Family Care: No Additional living arrangements comments: Lives with family in [place]. Spiritual care concerns: No Exam Narrative: General appearance: Well-developed, well-nourished, generally weak, poor hygienic condition, Skin: Normal color, extensive erythematous changes, warmth and diffusely tender of the buttocks and lower back bilaterally around the the decubitus ulcer, long fingernails., Head: Normocephalic, nontraumatic Eyes: Clear conjunctiva ENT: Severe dry oral cavity and tongue Neck: nontender Chest and respiratory: Airway patent, no respiratory distress, no accessory muscl
[2023-08-05 10:12] LABS: Glucose Point of Care 177 mg/dl (65-105)
[2023-08-05 10:14] LABS: Basophils Absolute Auto 0.1 K/mm3 (0.0-0.1); Basophils Percent Auto 0.4 % (0.2-1.2); Eosinophils Percent Auto 0.1 % (0-4.4); Hematocrit 37.3 % (37.0-47.0); Hemoglobin 11.4 g/dL (12.0-15.0); Immature Granulocyte Absolute 0.26 K/mm3 (0.00-0.031); Immature Granulocyte Percent A 0.9 % (0-0.5); Lymphocytes Absolute Auto 1.53 K/mm3 (0.9-3.2); Lymphocytes Percent Auto 5.1 % (18.3-44.2); Mean Corpuscular HGB Conc 30.6 g/dl (32-36); Mean Corpuscular Hemoglobin 26.9 pg (26-34); Mean Platelet Volume 9.1 fl (7.4-10.4); Monocytes Absolute Auto 1.9 K/mm3 (0.1-0.6); Monocytes Percent Auto 6.4 % (2.6-8.5); Neutrophils Absolute Auto 26.4 K/mm3 (1.3-6.7); Neutrophils Percent Auto 87.1 % (45.5-73.1); Platelet Count Result 765 k/mm3 (150-375); Red Blood Count 4.24 M/mm3 (4.2-5.4); Red Cell Distribution Width 16.7 % (11.5-14.5); White Blood Count 30.3 K/mm3 (4.5-10.0)
[2023-08-05 10:31] LABS: Anion Gap 19 mmol/L (8-16); Calcium 9.6 mg/dL (8.4-10.2); Carbon Dioxide 12 mmol/L (22-30); Chloride 108 mmol/L (98-107); Estimated CRCL calculation 11 ml/min; Estimated Glomerular Filt Rate 11; Glucose 175 mg/dL (65-110); Sodium 139 mmol/L (137-145)
[2023-08-05 10:32] LABS: Blood Urea Nitrogen 127 mg/dL (7-17)
[2023-08-05] MEDS: SODIUM CHLORIDE 0.9% IV 1,000 ML 999 ML IV CONT ×3 (11:12→16:18)
[2023-08-05 11:33] LABS: Alanine Aminotransferase 26 U/L (6-35); Albumin Level 3.7 g/dL (3.5-5.1); Alkaline Phosphatase 68 U/L (38-126); Aspartate Amino Transferase 52 U/L (14-36); Bilirubin,Total 0.4 mg/dL (0.2-1.3); Lactic Acid Reflex 1.3 mmol/L (0.7-2.0)
[2023-08-05 11:38] LABS: Appearance Urine Turbid (Clear); Bacteria Urine 4+ /hpf; Bilirubin Urine Negative (Negative); Blood Urine 2+ (Negative); Color Urine Dark Yellow (Yellow); Glucose Urine UA Negative (Negative); Ketones Urine Negative (Negative); Leukocyte Esterase Ur 3+ LEU/UL (Negative); Need Manual Microscopic Reviewed; Nitrate Urine Negative (Negative); Non Pathogenic Casts >20; Protein Urine 2+ mg/dL (Negative); RBC Urine 0-2 /hpf (0-2); Specific Grav Ur 1.014 (1.001-1.035); Squamous Epithelial Cell Urine Few /hpf (Few); Urobilinogen Urine 0.2 mg/dL (<2.0); WBC Urine >100 /hpf; pH Urine 5.5 (5.0-9.0)
[2023-08-05 11:39] LABS: Add Urine Microscopic? YES
[2023-08-05] MEDS: PIPERACILLIN/TAZ 2.25G/NS 50ML 2.25 GM/50 ML BAG IVPB ×2 (12:02→19:50)
--- NOTE | 2023-08-05 12:40 | PC.NURSE ---
pt to CT via stretcher at this time
[2023-08-05] MEDS: VANCOMYCIN 1,250 MG/NS 250 ML 1,250 MG/250 ML BAG 166.67 MG IVPB (13:13)
[2023-08-05 14:03] LABS: Glucose Point of Care 178 mg/dl (65-105)
--- NOTE | 2023-08-05 14:05 | PCCCNOTE ---
met with patient and daughter, Denise, bedside. patient is alert and oriented x 2-3. prior to coming to ER, patient was living at daughters home. patient is bedbound. CC was consulted to see patient for POLST form. patient and JONATAN euceda desire for patient to be DNR/I. polst form was filled out and copy was placed in chart. copy of HPOA paperwork was also copied and placed in chart. patient refuses to be placed into a facility. MD plans to admit patient. CC will continue to follow for any needs that arise.
[2023-08-05] MEDS: MORPHINE SULFATE (*CRX) 4 MG/ML INJ IV PUSH (16:17)
[2023-08-05] MEDS: ONDANSETRON INJ 4 MG/2 ML VIAL 8 MG IV PUSH (16:17)
[2023-08-05] MEDS: NOREPINEPHRINE 8 MG/D5W 250 ML 8 MG/250 ML BAG 9.38 MG IV CONT (17:15)
--- NOTE | 2023-08-05 17:16 | PM.IMHP ---
H&P: HPI History of Present Illness Date/Time: 08/05/23 16:00 Chief Complaint: Low blood sugar. Narrative: This is a 78-year-old female with poorly controlled insulin-dependent diabetes mellitus with a most recent hemoglobin A1c of 13.7%, hypertension, dyslipidemia, and chronic kidney disease who presented to the emergency department via EMS from home for evaluation of low blood sugar. The patient provides the following history. She lives with her daughter and her family members are reportedly her primary caretakers. She has been bed-bound for 6 years and does not leave the house. The last time she was out of the home was in January 2023 at which time she was hospitalized with sepsis, bacteremia, acute kidney injury, and infected decubitus ulcer of the coccygeal region which required excisional debridement in the OR. It does not sound as though she had much follow-up of that wound. In any event, family members report that it is increasingly difficult for them to care for her at home. She was in a residential previously however left as she felt she was not getting good care. In any event, family members report that she has been allowed more fatigued and weak recently and she has been sleeping more than usual. This morning her glucose was 47 and family called EMS. She received 5% glucose in route to the hospital and she was A&O x3 on arrival. Her vital signs were stable on arrival however her blood pressures began to fall despite IV fluid rehydration and a central line was inserted and she is currently on norepinephrine. Labs were significant for WBC count of 30.3, BUN 127, creatinine 4.00, serum carbon dioxide 12, lactic acid 1.3. Urine was positive for leukocyte esterase, bacteria, casts, and showed greater than [address] of the lumbar spine and pelvis showed prominent soft tissue thickening and subcutaneous emphysema in the medial right buttock extending into the region of the right sacrum and presacral space consistent with cellulitis, possible gangrene, and findings of osteomyelitis of the lower right sacral bone. In addition to IV fluids she was given a dose of vancomycin and Zosyn. Surgery and critical care services were consulted by the ED physician and she is being admitted in this setting for further care. At the time my evaluation she is alert and oriented and her only complaint is that of posterior pain at the site of her decubitus ulcer though she goes on to state this is not unusual. She denies fever, chills, sweats, headache, sinus congestion, sore throat, chest pain, pleuritic pain, cough, shortness of breath, nausea, vomiting, diarrhea, and dysuria. Review of Systems Review of Systems: Twelve systems were reviewed and are negative except for as per HPI. [facility] Past Medical History Medical History Chronic kidney disease Dyslipidemia Gout Hypertension Insulin dependent type 2 diabetes mellitus Osteoarthritis Surgical History Surgical History History of section x3 History of endoscopic retrograde cholangiopancreatography (03/2018) History of laparoscopic cholecystectomy (03/2018) Acute gangrenous cholecystitis. Status post excisional debridement (01/2023) Sacral decubitus ulcer. Family History Family History Father Bladder cancer Mother Colon cancer Other Breast cancer Grandparent Diabetes mellitus Social History Social History Social History: Surrogate medical decision maker: Denise Mehta, daughter. Code status: Do not resuscitate. Smoking status: Never smoker Alcohol intake: never Substance use: never Substance use type: does not use Lack of Transportation: No Lack of Food: Never True Current Housing: I Do Not Have Housing Concerned About Future Housing: N
[2023-08-05 17:24] LABS: Glucose Point of Care 139 mg/dl (65-105)
--- NOTE | 2023-08-05 18:11 | ADMGEN ---
This patient, Shirley Carlson, was admitted to Intensive Care Unit-6 [id number]. Patient/family oriented to hospital policies and general routines including ID bracelet, bed and alarms, visiting hours, pain management, procedures, bathroom and other care routines, personal items, smoking policy, room service/diet, and visiting hours. Information on how to activate the Rapid Response Team has been discussed. Patient/Family are encouraged to report perceived risks to care and to ask questions if they do not understand what they are told or what they should do.
[2023-08-05] MEDS: SODIUM CHLORIDE 0.9% IV 1,000 ML 150 ML IV CONT (18:30)
[2023-08-05] MEDS: CENTRAL LINE FLUSH 10 ML IV PUSH ×2 (18:30→19:50)
[2023-08-05 21:01] LABS: Glucose Point of Care 137 mg/dl (65-105)
[2023-08-05] MEDS: ACETAMINOPHEN 325 MG TABLET 650 MG PO (21:06)
[2023-08-06] VITALS (19 sets, daily range): BP systolic 100–150; BP diastolic 48–129; PULSE 85–144; RESP 8–24; TEMP 36.2–37.1; O2SAT 88–100; BMI 27.0
[2023-08-06 01:28] LABS: Alveolar/Arterial O2 Gradient 167.2 mmHg; Base Excess ABG -17.1 mEq/l (+/-2.0); Carboxyhemoglobin 0.3 % THb (0-2.0); Fractional Inspired Oxygen 32 %; HCO3 ABG 10.6 mEq/l (22.0-26.0); Methemoglobin ABG 0.3 %THb (0-1.5); Oxygen Content ABG 14.8 %vol (16.0-22.0); Oxygen Saturation ABG 93.2 % (95.0-100.0); Oxyhemoglobin 94.2 % THb (90.0-100.0); PCO2 ABG 31.3 mmHg (35.0-45.0); PO2 ABG 83.6 mmHg (80.0-100.0); PO2 FiO2 Ratio Arterial Blood 2.61 %; Reduced Hemoglobin 5.2 %THb (0-5.0); Total Hemoglobin 11.1 g/dL (12.0-18.0); pH ABG 7.146 (7.350-7.450)
[2023-08-06 01:29] LABS: Device CPAP; Modified Allen's Test Pass; Site Drawn RIGHT RADIAL
[2023-08-06] MEDS: LACTATED RINGERS 1,000 ML 100 ML IV CONT (01:44)
[2023-08-06] MEDS: SODIUM BICARBONATE 8.4% 50 MEQ/50 ML SYRINGE IV PUSH (02:18)
[2023-08-06] MEDS: CLINDAMYCIN 900 MG/D5W 50 ML 900 MG/50 ML PIGGYBACK 50 MG IVPB ×3 (02:18→17:59)
[2023-08-06 02:20] LABS: Anion Gap 17 mmol/L (8-16); Blood Urea Nitrogen 104 mg/dL (7-17); Calcium 8.4 mg/dL (8.4-10.2); Carbon Dioxide 10 mmol/L (22-30); Chloride 114 mmol/L (98-107); Estimated CRCL calculation 12 ml/min; Estimated Glomerular Filt Rate 12; Glucose 144 mg/dL (65-110); Potassium 3.2 mmol/L (3.4-5.0); Sodium 141 mmol/L (137-145)
[2023-08-06] MEDS: MEROPENEM 1 GM/NS 100 ML 1 GM/100 ML BAG IVPB (02:26)
[2023-08-06] MEDS: SODIUM BICARBONATE 8.4% 150 MEQ in WATER, STERILE FOR INJECTION 950 ML 80 MEQ IV CONT ×2 (02:32→15:40)
[2023-08-06 04:10] LABS: Hemoglobin A1C 8.3 % (<5.7)
[2023-08-06 04:11] LABS: Creatine Kinase 755 U/L (30-135)
[2023-08-06] MEDS: CENTRAL LINE FLUSH 10 ML IV PUSH ×4 (05:40→20:41)
[2023-08-06 05:47] LABS: Basophils Absolute Auto 0.2 K/mm3 (0.0-0.1); Basophils Percent Auto 0.6 % (0.2-1.2); Eosinophils Absolute Auto 0.1 K/mm3 (0-0.3); Eosinophils Percent Auto 0.3 % (0-4.4); Hematocrit 32.2 % (37.0-47.0); Hemoglobin 9.9 g/dL (12.0-15.0); Immature Granulocyte Absolute 0.32 K/mm3 (0.00-0.031); Lymphocytes Absolute Auto 1.25 K/mm3 (0.9-3.2); Lymphocytes Percent Auto 3.9 % (18.3-44.2); Mean Corpuscular HGB Conc 30.7 g/dl (32-36); Mean Corpuscular Hemoglobin 27.2 pg (26-34); Mean Corpuscular Volume 88.5 fl (80-100); Mean Platelet Volume 8.9 fl (7.4-10.4); Monocytes Absolute Auto 1.3 K/mm3 (0.1-0.6); Neutrophils Absolute Auto 28.9 K/mm3 (1.3-6.7); Neutrophils Percent Auto 90.2 % (45.5-73.1); Platelet Count Result 701 k/mm3 (150-375); Red Blood Count 3.64 M/mm3 (4.2-5.4); Red Cell Distribution Width 16.6 % (11.5-14.5)
[2023-08-06 05:56] LABS: Alanine Aminotransferase 25 U/L (6-35); Alkaline Phosphatase 76 U/L (38-126); Anion Gap 16 mmol/L (8-16); Aspartate Amino Transferase 53 U/L (14-36); Bilirubin,Total 0.3 mg/dL (0.2-1.3); Blood Urea Nitrogen 103 mg/dL (7-17); Calcium 8.3 mg/dL (8.4-10.2); Carbon Dioxide 12 mmol/L (22-30); Chloride 113 mmol/L (98-107); Estimated CRCL calculation 12 ml/min; Estimated Glomerular Filt Rate 13; Glucose 162 mg/dL (65-110); Magnesium 1.2 mg/dL (1.6-2.3); Potassium 3.3 mmol/L (3.4-5.0); Sodium 141 mmol/L (137-145)
[2023-08-06 06:16] LABS: Anisocytosis 1+ (NORMAL); Platelet Estimate Increased (Adequate)
[2023-08-06 06:17] LABS: Burr Cells 2+ (NORMAL); Schistocytes None Seen (NORMAL)
[2023-08-06] MEDS: MAGNESIUM SULF 2 GM/WATER 50ML 2 GM/50 ML BAG IVPB (09:26)
[2023-08-06] MEDS: SODIUM BICARBONATE 8.4% 50 MEQ/50 ML SYRINGE 100 MEQ IV PUSH (09:27)
[2023-08-06] MEDS: KCL 40 MEQ/WATER 100 ML 100 ML 25 ML IVPB (09:27)
--- NOTE | 2023-08-06 09:30 | P.CONNP_ITS ---
Assessment and Plan Assessment and plan (1) MIRIAM (acute kidney injury): Code(s): N17.9 - Acute kidney failure, unspecified Status: Acute Assessment and Plan: * suspect ATN from multifactorial etiology: * hemodynamic instability/hypotension * prerenal factors * infection/sepsis * ongoing YEHUDA-I use prior to admission * follow-up on renal ultrasound * check urine studies and CPK * remains at risk for CLINICAL ACCOUNT SPECIALIST/dialysis * follow trend of repeat labs and UOP (2) Stage 3b chronic kidney disease: Code(s): N18.32 - Chronic kidney disease, stage 3b Status: Chronic Assessment and Plan: * baseline creatinine runs 1.1 - 1.6mg/dl (but has been as high as 2.0mg/ld in the past) * present since as far back as 2019 * presumably secondary to hypertension, diabetes, vascular disease and age- related change (3) Septic shock: Code(s): A41.9 - Sepsis, unspecified organism; R65.21 - Severe sepsis with septic shock Status: Acute Assessment and Plan: * as noted by AMS/lethargy, hypoglycemia, weakness, and hypotension * s/p aggressive IVF resuscitation * initiated on vasopressor therapy to maintain MAP -- has since been weaned off * suspected source = UJTI + infected decubitus ulcer + cellulitis of buttocks + sacral osteomyelitis * follow culture data * on broad spectrum antibiotics (4) Decubitus ulcer of sacral region: Code(s): L89.159 - Pressure ulcer of sacral region, unspecified stage Status: Acute Assessment and Plan: * complicated by buttock cellulitis and osteomyelitis (as noted by imaging) * already on antibiotic therapy * Surgery consulted (5) Insulin dependent type 2 diabetes mellitus: Code(s): E11.9 - Type 2 diabetes mellitus without complications; Z79.4 - exterminator helper (current) use of insulin Status: Acute Assessment and Plan: * follow accu-cheks * glycemic control per transportation maintenance supervisor/hospitalists Case discussed with Dr. Galvan. I will continue to follow the patient with you while she remains hospitalized a nd make further recommendations as needed. Thank you for allowing me to participate in care of this patient. History of Present Illness Reason for Consult Consult date: 08/06/23 Reason for consult: acute renal failure (on chronic kidney disease) Chief Complaint Chief complaint: cellulitis,decubitus ulcer,osteomyelitis,uti,miriam History of Present Illness Narrative: Most of the information I have obtained is from review of the electronic medical record as well as discussion with the physician/nurses involved in the patient's care as is difficult to get a full and complete history from the patient due to her fluctuating mentation/confusion. The patient is a 78-year-old female with a past medical history as outlined below who presented to [facility] Emergency room via EMS for further evaluation of hypoglycemia. The patient lives with her daughter and most of her medical care is provided by her extended family members. She apparently has been bed-bound for the last 6 years and does not leave the house in general. The last time she was actually out of the house was during her January 2023 hospitalization for sepsis, bacteremia, acute kidney injury, and infected decubitus ulcer that required significant excisional debridement in the OR but I am unclear if she ever had any follow-up after that hospital stay. In any case, her family noted over the last few days the patient has been getting more and more fatigued been associated with generalized weakness and lethargy. She appar
--- NOTE | 2023-08-06 09:30 | PM.CNNEP ---
Assessment and Plan Assessment and plan (1) MIRIAM (acute kidney injury): Code(s): N17.9 - Acute kidney failure, unspecified Status: Acute Assessment and Plan: suspect ATN from multifactorial etiology: hemodynamic instability/hypotension prerenal factors infection/sepsis ongoing YEHUDA-I use prior to admission follow-up on renal ultrasound check urine studies and CPK remains at risk for SURGEON CHIEF/dialysis follow trend of repeat labs and UOP (2) Stage 3b chronic kidney disease: Code(s): N18.32 - Chronic kidney disease, stage 3b Status: Chronic Assessment and Plan: baseline creatinine runs 1.1 - 1.6mg/dl (but has been as high as 2.0mg/ld in the past) present since as far back as 2019 presumably secondary to hypertension, diabetes, vascular disease and age-related change (3) Septic shock: Code(s): A41.9 - Sepsis, unspecified organism; R65.21 - Severe sepsis with septic shock Status: Acute Assessment and Plan: as noted by AMS/lethargy, hypoglycemia, weakness, and hypotension s/p aggressive IVF resuscitation initiated on vasopressor therapy to maintain MAP -- has since been weaned off suspected source = UJTI + infected decubitus ulcer + cellulitis of buttocks + sacral osteomyelitis follow culture data on broad spectrum antibiotics (4) Decubitus ulcer of sacral region: Code(s): L89.159 - Pressure ulcer of sacral region, unspecified stage Status: Acute Assessment and Plan: complicated by buttock cellulitis and osteomyelitis (as noted by imaging) already on antibiotic therapy Surgery consulted (5) Insulin dependent type 2 diabetes mellitus: Code(s): E11.9 - Type 2 diabetes mellitus without complications; Z79.4 - ocean transportation intermediary (current) use of insulin Status: Acute Assessment and Plan: follow accu-cheks glycemic control per prosthetic aides teacher/hospitalists Case discussed with Dr. Galvan. I will continue to follow the patient with you while she remains hospitalized and make further recommendations as needed. Thank you for allowing me to participate in care of this patient. History of Present Illness Reason for Consult Consult date: 08/06/23 Reason for consult: acute renal failure (on chronic kidney disease) Chief Complaint Chief complaint: cellulitis,decubitus ulcer,osteomyelitis,uti,miriam History of Present Illness Narrative: Most of the information I have obtained is from review of the electronic medical record as well as discussion with the physician/nurses involved in the patient's care as is difficult to get a full and complete history from the patient due to her fluctuating mentation/confusion. The patient is a 78-year-old female with a past medical history as outlined below who presented to [facility] Emergency room via EMS for further evaluation of hypoglycemia. The patient lives with her daughter and most of her medical care is provided by her extended family members. She apparently has been bed-bound for the last 6 years and does not leave the house in general. The last time she was actually out of the house was during her January 2023 hospitalization for sepsis, bacteremia, acute kidney injury, and infected decubitus ulcer that required significant excisional debridement in the OR but I am unclear if she ever had any follow-up after that hospital stay. In any case, her family noted over the last few days the patient has been getting more and more fatigued been associated with generalized weakness and lethargy. She apparently has been sleeping a lot more than usual and this has progressively worsened. Her blood sugar was checked on the morning of admission and this was quite low that prompted a call to EMS. EMS subsequently transferred her to the emergency room or further assessment. and route to the emergency room, she did receive D50 in effort to improve her blood sugar and reportedly she was more
[2023-08-06] MEDS: TOLNAFTATE 1% POWDER 45 GM BTL 1 APPLIC TOPICAL ×2 (10:01→20:41)
--- NOTE | 2023-08-06 11:23 | WPDCNINT ---
Assessment and Plan Assessment and plan (1) Shock: Code(s): R57.9 - Shock, unspecified Status: Acute Assessment and Plan: Patient presented with lethargy, hypoglycemia, increased weakness, hypotension -received adequate IV fluids -started on Levophed overnight to maintain adequate MAP for better end organ perfusion -currently off Levophed this morning and maintaining adequate blood pressure -urine output has been low - acute on chronic kidney disease -likely source of infection is UTI, infected decubitus ulcer, cellulitis of the buttocks, sacral osteomyelitis -continue clindamycin, meropenem and vancomycin (08/06) -08/05 blood cultures: Pending -08/05 urine cultures: Pending (2) Sepsis: Qualifiers: Sepsis acute organ dysfunction status: with acute organ dysfunction Sepsis type: sepsis due to unspecified organism Severe sepsis acute organ dysfunction type: unspecified Severe sepsis shock status: with septic shock Qualified Code(s): A41.9 - Sepsis, unspecified organism; R65.21 - Severe sepsis with septic shock Code(s): A41.9 - Sepsis, unspecified organism Status: Acute Assessment and Plan: As above (3) Acute on chronic kidney failure: Code(s): N17.9 - Acute kidney failure, unspecified; N18.9 - Chronic kidney disease, unspecified Status: Acute Assessment and Plan: Patient has a history of chronic kidney disease present presented with acute on chronic kidney disease likely related to hypotension, shock, ATN, UTI, on lisinopril at home. -adequately fluid-resuscitated -continue bicarb infusion as patient is acidotic -lactic acid is normal -low urine output, improving kidney function -nephrology has been consulted -urine lytes did not show prerenal picture, urine eosinophils are negative, elevated CK levels, will continue to monitor, fluids on board -08/06 renal ultrasound:?Left renal cysts, largest measuring 1.7 cm. (4) Urinary tract infection: Qualifiers: Hematuria presence: without hematuria Urinary tract infection type: site unspecified Qualified Code(s): N39.0 - Urinary tract infection, site not specified Code(s): N39.0 - Urinary tract infection, site not specified Status: Acute Assessment and Plan: Urine cultures have been obtained and pending -continue antibiotics as above (5) Insulin dependent type 2 diabetes mellitus: Code(s): E11.9 - Type 2 diabetes mellitus without complications; Z79.4 - residential (current) use of insulin Status: Acute Assessment and Plan: Continue sliding scale insulin Accu-Cheks (6) Decubitus ulcer of sacral region: Code(s): L89.159 - Pressure ulcer of sacral region, unspecified stage Status: Acute Assessment and Plan: Sacral decubitus ulcer with cellulitis and osteomyelitis as seen on CT scan of the abdomen and pelvis -continue antibiotics as above -surgery has been consulted -02/21/2023: off note patient has had sharp excisional debridement of sacral decubitus ulcer measuring 9 cm x 5 cm including skin, subcutaneous fat, muscle and tendon by surgery here at [facility] 08/05/2023: CT scan of the abdomen and pelvis along with lumbar without contrast -?Prominent soft tissue thickening and subcutaneous emphysema in the medial right buttock area, extending into the region of the right sacrum and presacral space consistent with cellulitis and possible gangrene, with lower right sacral bone destruction consistent with osteomyelitis (7) Sacral osteomyelitis: Code(s): M46.28 - Osteomyelitis of vertebra, sacral and sacrococcygeal region Status: Acute Assessment and Plan: As above (8) Cellulitis of buttock: Code(s): L03.317 - Cellulitis of buttock Status: Acute Assessment and Plan: As above Plan DVT prophylaxis: SCDs, will discuss with surgery regarding prophylactic Lovenox Stress ulcer prophylaxis: Not indicated Nutrition
[2023-08-06 11:59] LABS: Glucose Point of Care 157 mg/dl (65-105)
--- NOTE | 2023-08-06 12:34 | PM.CNGS ---
Assessment and Plan Assessment and plan (1) Decubitus ulcer, stage 4 with infection: Code(s): L89.94 - Pressure ulcer of unspecified site, stage 4; L08.9 - Local infection of the skin and subcutaneous tissue, unspecified Status: Acute Assessment and Plan: Patient with a chronic stage IV sacral decubitus ulcer now with sacral osteomyelitis on CT. There is purulent drainage coming from an opening on the right buttock, but this is adequately draining through a fairly large opening in the wound. Continue local wound care for now with dry gauze dressing changes. This may eventually require surgical intervention/debridement depending on how she progresses. Continue broad-spectrum IV antibiotics and medical management of the septic shock. I will make her NPO after midnight in case of need for surgical debridement tomorrow. (2) Sacral osteomyelitis: Code(s): M46.28 - Osteomyelitis of vertebra, sacral and sacrococcygeal region Status: Acute Assessment and Plan: Noted on CT scan. possible source for her sepsis. Continue broad-spectrum IV antibiotics. See plan above. (3) Sepsis: Qualifiers: Sepsis acute organ dysfunction status: with acute organ dysfunction Sepsis type: sepsis due to unspecified organism Severe sepsis acute organ dysfunction type: unspecified Severe sepsis shock status: with septic shock Qualified Code(s): A41.9 - Sepsis, unspecified organism; R65.21 - Severe sepsis with septic shock Code(s): A41.9 - Sepsis, unspecified organism Status: Acute Assessment and Plan: Continue ICU management and IV fluid resuscitation. Blood pressure and tachycardia improving. She was weaned off of vasopressors this morning. Continue to monitor labs. Blood cultures pending. (4) Shock: Code(s): R57.9 - Shock, unspecified Status: Acute (5) Acute on chronic kidney failure: Code(s): N17.9 - Acute kidney failure, unspecified; N18.9 - Chronic kidney disease, unspecified Status: Acute Assessment and Plan: Improving with IV fluid resuscitation, continue to monitor. Nephrology following. (6) Urinary tract infection: Code(s): N39.0 - Urinary tract infection, site not specified Status: Acute Assessment and Plan: Continue IV antibiotics. Urine culture pending. (7) Poorly controlled diabetes mellitus: Code(s): E11.65 - Type 2 diabetes mellitus with hyperglycemia Status: Acute Assessment and Plan: Likely playing a role with her poor wound healing. Her diabetes is better controlled than her previous hemoglobin A1c at 13, and now down to 8.3. Continue medical management per hospitalist. Plan I have discussed the patient's case and plan of care with Dr. Cruz. Thank you for allowing us to see the patient in consultation and we will continue to follow along with you. History of Present Illness Consult details Consult date: 08/06/23 Reason for consult: other (Sacral decubitus ulcer with osteomyelitis) Requesting physician: Rufino Rico MD Narrative: This is a 78-year-old woman with?insulin-dependent diabetes mellitus, hypertension, dyslipidemia, and chronic kidney disease?who has been bedridden at home for about 6 years. She was brought into the ER yesterday for evaluation of low blood sugar. Her family has noted increased fatigue and generalized weakness recently. Yesterday morning, her glucose was 47 and family called EMS. Her vital signs were stable on arrival, however her blood pressures continued to fall despite IV fluid hydration. She continued to be hypotensive and a central line was placed. She was started on norepinephrine. Labs were significant for WBC count of 30.3, BUN 127, creatinine 4.00, serum carbon dioxide 12, lactic acid 1.3. Urinalysis suggested possible urinary tract infection. Urine and blood cultures are pending. CT of the lumbar spine and pelvis showed prominent soft tissue thickening and subcutaneous em
[2023-08-06] MEDS: ALBUMIN HUMAN 25% 25 GM/100 ML 100 ML IVPB ×2 (13:23→17:58)
[2023-08-06] MEDS: MEROPENEM 500 MG in SODIUM CHLORIDE 0.9% IV 100 ML 200 ML IVPB (13:24)
[2023-08-06 15:09] LABS: Eosinophil Urine None Seen % (None Seen); Urine Eos QC 2nd Tech Confirmed
[2023-08-06 15:16] LABS: Creatinine Urine 71.5 mg/dL; Total Protein Urine Random 93 mg/dL; Urea Random Urine 624 MG/DL
[2023-08-06 15:22] LABS: Sodium Urine Random 46 meq/L
[2023-08-06 18:12] LABS: Glucose Point of Care 123 mg/dl (65-105)
[2023-08-06 23:51] LABS: Glucose Point of Care 100 mg/dl (65-105)
[2023-08-07] VITALS (18 sets, daily range): BP systolic 95–118; BP diastolic 49–87; PULSE 81–100; RESP 12–23; TEMP 36.6–37; O2SAT 88–96
[2023-08-07] MEDS: ALBUMIN HUMAN 25% 25 GM/100 ML 100 ML IVPB ×2 (01:03→06:14)
[2023-08-07] MEDS: CLINDAMYCIN 900 MG/D5W 50 ML 900 MG/50 ML PIGGYBACK 50 MG IVPB ×3 (01:03→17:59)
[2023-08-07] MEDS: MEROPENEM 500 MG in SODIUM CHLORIDE 0.9% IV 100 ML 200 ML IVPB ×2 (02:46→15:00)
[2023-08-07] MEDS: SODIUM BICARBONATE 8.4% 150 MEQ in WATER, STERILE FOR INJECTION 950 ML 80 MEQ IV CONT (03:55)
[2023-08-07 05:46] LABS: Basophils Absolute Auto 0.1 K/mm3 (0.0-0.1); Basophils Percent Auto 0.5 % (0.2-1.2); Eosinophils Absolute Auto 0.2 K/mm3 (0-0.3); Eosinophils Percent Auto 1.1 % (0-4.4); Hematocrit 26.5 % (37.0-47.0); Hemoglobin 8.3 g/dL (12.0-15.0); Immature Granulocyte Percent A 0.6 % (0-0.5); Lymphocytes Absolute Auto 1.16 K/mm3 (0.9-3.2); Lymphocytes Percent Auto 6.6 % (18.3-44.2); Mean Corpuscular HGB Conc 31.3 g/dl (32-36); Mean Corpuscular Hemoglobin 26.8 pg (26-34); Mean Corpuscular Volume 85.5 fl (80-100); Mean Platelet Volume 8.7 fl (7.4-10.4); Monocytes Absolute Auto 0.9 K/mm3 (0.1-0.6); Monocytes Percent Auto 4.9 % (2.6-8.5); Neutrophils Absolute Auto 15.2 K/mm3 (1.3-6.7); Neutrophils Percent Auto 86.3 % (45.5-73.1); Platelet Count Result 529 k/mm3 (150-375); Red Cell Distribution Width 16.1 % (11.5-14.5); White Blood Count 17.6 K/mm3 (4.5-10.0)
[2023-08-07 05:57] LABS: INR 1.4; Prothrombin Time 17.6 Seconds (11.1-14.7)
[2023-08-07 05:58] LABS: Alanine Aminotransferase 22 U/L (6-35); Albumin Level 3.5 g/dL (3.5-5.1); Alkaline Phosphatase 48 U/L (38-126); Anion Gap 13 mmol/L (8-16); Aspartate Amino Transferase 37 U/L (14-36); Bilirubin,Total 0.4 mg/dL (0.2-1.3); Blood Urea Nitrogen 92 mg/dL (7-17); Calcium 8.3 mg/dL (8.4-10.2); Carbon Dioxide 22 mmol/L (22-30); Chloride 106 mmol/L (98-107); Creatine Kinase 289 U/L (30-135); Estimated CRCL calculation 16 ml/min; Estimated Glomerular Filt Rate 16; Glucose 88 mg/dL (65-110); Lactic Acid Reflex 0.7 mmol/L (0.7-2.0); Magnesium 1.5 mg/dL (1.6-2.3); Phosphorus 5.1 mg/dL (2.5-4.5); Potassium 3.2 mmol/L (3.4-5.0); Sodium 141 mmol/L (137-145)
[2023-08-07] MEDS: CENTRAL LINE FLUSH 10 ML IV PUSH ×3 (06:14→20:40)
[2023-08-07 06:30] LABS: Vancomycin Trough 10.5 ug/mL (10.0-20.0)
[2023-08-07 06:54] LABS: Hepatitis B Surface Antigen Negative (Negative)
[2023-08-07 07:11] LABS: Hepatitis B Surface Anti Res Negative
[2023-08-07] MEDS: VANCOMYCIN 1,250 MG/NS 250 ML 1,250 MG/250 ML BAG 166.67 MG IVPB (07:37)
[2023-08-07] MEDS: KCL 40 MEQ/WATER 100 ML 100 ML 25 ML IVPB (08:29)
[2023-08-07 08:42] LABS: Lactate Dehydrogenase 130 U/L (120-246)
[2023-08-07] MEDS: MAGNESIUM SULF 2 GM/WATER 50ML 2 GM/50 ML BAG IVPB (08:59)
[2023-08-07] MEDS: TOLNAFTATE 1% POWDER 45 GM BTL 1 APPLIC TOPICAL ×2 (09:00→20:40)
[2023-08-07 09:03] LABS: Immature Reticulocyte Fraction 23.7 % (3.0-15.9); Reticulocyte Hemoglobin Conten 25.7 pg (28.2-35.7); Reticulocyte Percent 1.11 % (0.7-4.3); Reticulocytes Absolute 0.03 M/mm3 (0.02-0.1)
[2023-08-07 09:06] LABS: Iron 20 ug/dL (37-170)
[2023-08-07 09:16] LABS: Percent Iron Saturation 10 % (20-50)
--- NOTE | 2023-08-07 09:45 | P.PNNP_ITS ---
Progress Note: A&P Assessment and Plan (1) MIRIAM (acute kidney injury): Code(s): N17.9 - Acute kidney failure, unspecified Status: Acute Assessment and Plan: * some improvement noted * suspect ATN from multifactorial etiology: * hemodynamic instability/hypotension * prerenal factors * infection/sepsis * ongoing YEHUDA-I use prior to admission * evaluation to date: * urine eosinophils negative * urine electrolytes non-prerenal * renal ultrasound w/o obstruction * CPK mildly elevated -- not enough to affect kidney function * remains at risk for COMMERCIAL SPECIALIST/dialysis * follow trend of repeat labs and UOP (2) Stage 3b chronic kidney disease: Code(s): N18.32 - Chronic kidney disease, stage 3b Status: Chronic Assessment and Plan: * baseline creatinine runs 1.1 - 1.6mg/dl (but has been as high as 2.0mg/ld in the past) * present since as far back as 2019 * presumably secondary to hypertension, diabetes, vascular disease and age- related change (3) Septic shock: Code(s): A41.9 - Sepsis, unspecified organism; R65.21 - Severe sepsis with septic shock Status: Acute Assessment and Plan: * as noted by AMS/lethargy, hypoglycemia, weakness, and hypotension * s/p aggressive IVF resuscitation * initiated on vasopressor therapy to maintain MAP on evening of admission -- has since been weaned off * suspected source = UTI + infected decubitus ulcer + cellulitis of buttocks + sacral osteomyelitis * follow culture data * urine culture with E.coli * blood cultures with no growth * on broad spectrum antibiotics (4) Decubitus ulcer of sacral region: Code(s): L89.159 - Pressure ulcer of sacral region, unspecified stage Status: Acute Assessment and Plan: * complicated by buttock cellulitis and osteomyelitis (as noted by imaging) * already on antibiotic therapy * Surgery recommendations noted (5) Insulin dependent type 2 diabetes mellitus: Code(s): E11.9 - Type 2 diabetes mellitus without complications; Z79.4 - supervisor intermediates (current) use of insulin Status: Acute Assessment and Plan: * follow accu-cheks * glycemic control per haulage engine operator/hospitalists Will continue to follow. Subjective Date/time seen: 08/07/23 09:45 Interval history: Follow-up for acute kidney injury/acute renal failure on chronic kidney disease. Relative stability in hemodynamics without the need for vasopressor therapy; rem ains pleasantly confused at the time of my visit; renal function a tad better with some urine output noted in the last 24 hours; no apparent distress noted; no other issues/events overnight or earlier this morning. Exam Narrative: General: elderly female in NAD Heart: normal S1 and S2; no rub Lungs: clear to auscultation Abdomen: soft, nontender, nondistended, positive bowel sounds Extremities: no cyanosis or clubbing; 1+ edema Skin: warm and dry Objective Data Vital Signs Vital Signs: Vital Signs Temp Pulse Resp BP Pulse Ox O2 Del Method 08/07/23 09:42 90 Room Air 08/07/23 06:00 96 08/07/23 06:09 98.6 F 96 18 110/80 94 08/07/23 04:00 92 08/07/23 03:59 Autopap 08/07/23 03:44 98.6 F 92 17 101/52 L 96 08/07/23 02:12 90 96 Autopap 08/07/23 02:00 93 18 102/50 L 95 08/07/23 02:
--- NOTE | 2023-08-07 09:45 | PM.PNNEP ---
Progress Note: A&P Assessment and Plan (1) MIRIAM (acute kidney injury): Code(s): N17.9 - Acute kidney failure, unspecified Status: Acute Assessment and Plan: some improvement noted suspect ATN from multifactorial etiology: hemodynamic instability/hypotension prerenal factors infection/sepsis ongoing YEHUDA-I use prior to admission evaluation to date: urine eosinophils negative urine electrolytes non-prerenal renal ultrasound w/o obstruction CPK mildly elevated -- not enough to affect kidney function remains at risk for SILK SCREEN PRINTER/dialysis follow trend of repeat labs and UOP (2) Stage 3b chronic kidney disease: Code(s): N18.32 - Chronic kidney disease, stage 3b Status: Chronic Assessment and Plan: baseline creatinine runs 1.1 - 1.6mg/dl (but has been as high as 2.0mg/ld in the past) present since as far back as 2019 presumably secondary to hypertension, diabetes, vascular disease and age-related change (3) Septic shock: Code(s): A41.9 - Sepsis, unspecified organism; R65.21 - Severe sepsis with septic shock Status: Acute Assessment and Plan: as noted by AMS/lethargy, hypoglycemia, weakness, and hypotension s/p aggressive IVF resuscitation initiated on vasopressor therapy to maintain MAP on evening of admission -- has since been weaned off suspected source = UTI + infected decubitus ulcer + cellulitis of buttocks + sacral osteomyelitis follow culture data urine culture with E.coli blood cultures with no growth on broad spectrum antibiotics (4) Decubitus ulcer of sacral region: Code(s): L89.159 - Pressure ulcer of sacral region, unspecified stage Status: Acute Assessment and Plan: complicated by buttock cellulitis and osteomyelitis (as noted by imaging) already on antibiotic therapy Surgery recommendations noted (5) Insulin dependent type 2 diabetes mellitus: Code(s): E11.9 - Type 2 diabetes mellitus without complications; Z79.4 - long-term (current) use of insulin Status: Acute Assessment and Plan: follow accu-cheks glycemic control per tax compliance officer/hospitalists Will continue to follow. Subjective Date/time seen: 08/07/23 09:45 Interval history: Follow-up for acute kidney injury/acute renal failure on chronic kidney disease. Relative stability in hemodynamics without the need for vasopressor therapy; remains pleasantly confused at the time of my visit; renal function a tad better with some urine output noted in the last 24 hours; no apparent distress noted; no other issues/events overnight or earlier this morning. Exam Narrative: General: elderly female in NAD Heart: normal S1 and S2; no rub Lungs: clear to auscultation Abdomen: soft, nontender, nondistended, positive bowel sounds Extremities: no cyanosis or clubbing; 1+ edema Skin: warm and dry Objective Data Vital Signs Vital Signs: Vital Signs Temp Pulse Resp BP Pulse Ox O2 Del Method 08/07/23 09:42 90 Room Air 08/07/23 06:00 96 08/07/23 06:09 98.6 F 96 18 110/80 94 08/07/23 04:00 92 08/07/23 03:59 Autopap 08/07/23 03:44 98.6 F 92 17 101/52 L 96 08/07/23 02:12 90 96 Autopap 08/07/23 02:00 93 18 102/50 L 95 08/07/23 02:00 81 08/07/23 00:00 99 08/07/23 00:00 Autopap 08/06/23 23:56 98.8 F 101 H 16 102/72 94 08/06/23 22:00 97 08/06/23 20:00 96 08/06/23 20:00 Room Air 08/06/23 22:00 98.8 F 97 16 122/55 L 97 08/06/23 16:00 99 Room Air 08/06/23 18:00 100 08/06/23 16:00 102 H 08/06/23 14:00 103 H 08/06/23 12:00 99 Room Air 08/06/23 12:00 103 H 08/06/23 18:00 103 H 19 136/97 H 97 08/06/23 16:00 98.5 F 103 H 19 107/55 L 94 08/06/23 14:00 85 24 H 137/103 H 88 L 08/06/23 12:00 98.5 F 102 H 16 123/103 H 99 Intake/Output Intake
--- NOTE | 2023-08-07 11:18 | PCFNICU ---
ICU Rounding Note: Pt current nutrition is NPO for possible surgical debridement of wound today. Nutrition recommendation: When diet is advanced, recommend oral nutrition supplements: Glucerna TID and Emerson BID to support wound healing Last recorded weight is 83.7 kg. Bowel Motility: Last BM 08/05/23 Labs Reviewed: Hgb 8.3, Hct 26.5, K+ 3.2, GFR 16, BUN 92, Cre 2.0 Meds Noted: Vancomycin, meropenem, clindamycin, zofran Skin: Stage 4 pressure to sacrum. Deep tissue injuries to hip, BL heels Additional Notes: Pt ate 5% dinner on regular diet last night before being made NPO for possible surgery today. Monitoring for diet advancement in order to order supplements. Following daily in ICU rounds. Monitoring diet advancement, wound healing, labs, weights Follow daily in ICU rounds. Follow up in 3 days.
[2023-08-07 11:24] LABS: Folic Acid 17.9 ng/mL (2.76->20); Vitamin B12 > 1000.0 pg/mL (239-931)
[2023-08-07] MEDS: KCL 20 MEQ/D5/0.45% SOD CHL 1,000 ML 40 ML IV CONT (11:51)
[2023-08-07 12:06] LABS: Glucose Point of Care 67 mg/dl (65-105)
--- NOTE | 2023-08-07 12:26 | WPDINTPN ---
Progress Note: A&P Assessment and Plan (1) Shock: Code(s): R57.9 - Shock, unspecified Status: Acute Assessment and Plan: Septic shock secondary to osteomyelitis, soft skin tissue and skin infection, UTI Patient was early on Levophed which has been weaned off She has received significant IV fluids and I will discontinue further IV fluids at this time -urine output has been low secondary to acute on chronic renal failure -continue clindamycin, meropenem and vancomycin (08/06) -08/05 blood cultures: Pending -08/05 urine cultures: Growing E coli -will discuss additional surgery regarding whether they plan to proceed with surgical debridement (2) Sepsis: Qualifiers: Sepsis acute organ dysfunction status: with acute organ dysfunction Sepsis type: sepsis due to unspecified organism Severe sepsis acute organ dysfunction type: unspecified Severe sepsis shock status: with septic shock Qualified Code(s): A41.9 - Sepsis, unspecified organism; R65.21 - Severe sepsis with septic shock Code(s): A41.9 - Sepsis, unspecified organism Status: Acute Assessment and Plan: As above (3) Acute on chronic kidney failure: Code(s): N17.9 - Acute kidney failure, unspecified; N18.9 - Chronic kidney disease, unspecified Status: Acute Assessment and Plan: Patient has a history of chronic kidney disease present presented with acute on chronic kidney disease likely related to hypotension, shock, ATN, UTI, on lisinopril at home. -adequately fluid-resuscitated at this time and will hold further fluids -replace low potassium -acidosis improved with IV fluids with bicarb -monitor urine output, electrolytes and creatinine -nephrology has seen the patient -urine lytes did not show prerenal picture, urine eosinophils are negative, elevated CK levels, -08/06 renal ultrasound:?Left renal cysts, largest measuring 1.7 cm. (4) Urinary tract infection: Qualifiers: Hematuria presence: without hematuria Urinary tract infection type: site unspecified Qualified Code(s): N39.0 - Urinary tract infection, site not specified Code(s): N39.0 - Urinary tract infection, site not specified Status: Acute Assessment and Plan: Urine cultures have been obtained and pending -continue antibiotics as above (5) Insulin dependent type 2 diabetes mellitus: Code(s): E11.9 - Type 2 diabetes mellitus without complications; Z79.4 - skilled nursing (current) use of insulin Status: Acute Assessment and Plan: Continue sliding scale insulin Accu-Cheks (6) Decubitus ulcer of sacral region: Code(s): L89.159 - Pressure ulcer of sacral region, unspecified stage Status: Acute Assessment and Plan: Sacral decubitus ulcer with cellulitis and osteomyelitis as seen on CT scan of the abdomen and pelvis -continue antibiotics as above -surgery has been consulted -02/21/2023: off note patient has had sharp excisional debridement of sacral decubitus ulcer measuring 9 cm x 5 cm including skin, subcutaneous fat, muscle and tendon by surgery here at [facility] 08/05/2023: CT scan of the abdomen and pelvis along with lumbar without contrast -?Prominent soft tissue thickening and subcutaneous emphysema in the medial right buttock area, extending into the region of the right sacrum and presacral space consistent with cellulitis and possible gangrene, with lower right sacral bone destruction consistent with osteomyelitis (7) Sacral osteomyelitis: Code(s): M46.28 - Osteomyelitis of vertebra, sacral and sacrococcygeal region Status: Acute Assessment and Plan: As above (8) Cellulitis of buttock: Code(s): L03.317 - Cellulitis of buttock Status: Acute Assessment and Plan: As above (9) Electrolyte abnormality: Code(s): E87.8 - Other disorders of electrolyte and fluid balance, not elsewhere classified Status: Acute Assessment and
[2023-08-07 18:10] LABS: Glucose Point of Care 204 mg/dl (65-105)
[2023-08-08] VITALS (22 sets, daily range): BP systolic 105–158; BP diastolic 49–81; PULSE 78–95; RESP 10–22; TEMP 36.2–36.7; O2SAT 92–100
[2023-08-08] MEDS: CLINDAMYCIN 900 MG/D5W 50 ML 900 MG/50 ML PIGGYBACK 50 MG IVPB ×3 (00:39→17:04)
[2023-08-08] MEDS: MEROPENEM 500 MG in SODIUM CHLORIDE 0.9% IV 100 ML 200 ML IVPB ×2 (00:39→13:23)
[2023-08-08] MEDS: INSULIN ASPART (*BKC) 100 UNITS/ML SUB-Q ×2 (00:45→06:07)
[2023-08-08 00:46] LABS: Glucose Point of Care 259 mg/dl (65-105)
[2023-08-08] MEDS: CENTRAL LINE FLUSH 10 ML IV PUSH ×3 (05:29→19:37)
[2023-08-08 05:45] LABS: Hematocrit 23.8 % (37.0-47.0); Hemoglobin 7.5 g/dL (12.0-15.0); Mean Corpuscular HGB Conc 31.5 g/dl (32-36); Mean Corpuscular Hemoglobin 27.4 pg (26-34); Mean Corpuscular Volume 86.9 fl (80-100); Mean Platelet Volume 9.1 fl (7.4-10.4); Platelet Count Result 506 k/mm3 (150-375); Red Blood Count 2.74 M/mm3 (4.2-5.4); Red Cell Distribution Width 15.9 % (11.5-14.5); White Blood Count 13.6 K/mm3 (4.5-10.0)
[2023-08-08 06:04] LABS: Alanine Aminotransferase 18 U/L (6-35); Albumin Level 2.7 g/dL (3.5-5.1); Alkaline Phosphatase 49 U/L (38-126); Anion Gap 7 mmol/L (8-16); Aspartate Amino Transferase 26 U/L (14-36); Bilirubin,Total 0.2 mg/dL (0.2-1.3); Blood Urea Nitrogen 76 mg/dL (7-17); Calcium 8.2 mg/dL (8.4-10.2); Carbon Dioxide 24 mmol/L (22-30); Chloride 108 mmol/L (98-107); Estimated CRCL calculation 21 ml/min; Estimated Glomerular Filt Rate 22; Glucose 277 mg/dL (65-110); Magnesium 1.8 mg/dL (1.6-2.3); Phosphorus 4.1 mg/dL (2.5-4.5); Potassium 3.9 mmol/L (3.4-5.0); Sodium 139 mmol/L (137-145)
[2023-08-08 06:06] LABS: Vancomycin Random 18.7 ug/mL (10-20)
[2023-08-08] MEDS: LIDOCAINE HCL 1% PF INJ 5 ML VIAL INFILTRATE (08:35)
--- NOTE | 2023-08-08 08:40 | WPDINTPN ---
Progress Note: A&P Assessment and Plan (1) Shock: Code(s): R57.9 - Shock, unspecified Status: Acute Assessment and Plan: Septic shock secondary to osteomyelitis, soft tissue and skin infection, UTI Patient was early on Levophed which has been weaned off She has received significant IV fluids and I will discontinue further IV fluids at this time -urine output is improving acute on chronic renal failure -continue clindamycin, meropenem and vancomycin (08/06) -08/05 blood cultures 1/2 Gram-positive cocci in cluster -08/05 urine cultures: Growing E coli -patient is scheduled for surgical debridement today (2) Sepsis: Qualifiers: Sepsis acute organ dysfunction status: with acute organ dysfunction Sepsis type: sepsis due to unspecified organism Severe sepsis acute organ dysfunction type: unspecified Severe sepsis shock status: with septic shock Qualified Code(s): A41.9 - Sepsis, unspecified organism; R65.21 - Severe sepsis with septic shock Code(s): A41.9 - Sepsis, unspecified organism Status: Acute Assessment and Plan: As above (3) Acute on chronic kidney failure: Code(s): N17.9 - Acute kidney failure, unspecified; N18.9 - Chronic kidney disease, unspecified Status: Acute Assessment and Plan: Patient has a history of chronic kidney disease present presented with acute on chronic kidney disease likely related to hypotension, shock, ATN, UTI, on lisinopril at home. -adequately fluid-resuscitated at this time and will hold further fluids -replace low potassium -acidosis improved with IV fluids with bicarb -creatinine improving and is 2.2 today -monitor urine output, electrolytes and creatinine -nephrology following -urine lytes did not show prerenal picture, urine eosinophils are negative, elevated CK levels, -08/06 renal ultrasound:?Left renal cysts, largest measuring 1.7 cm. (4) Urinary tract infection: Qualifiers: Hematuria presence: without hematuria Urinary tract infection type: site unspecified Qualified Code(s): N39.0 - Urinary tract infection, site not specified Code(s): N39.0 - Urinary tract infection, site not specified Status: Acute Assessment and Plan: Urine cultures have been obtained and pending -continue antibiotics as above (5) Insulin dependent type 2 diabetes mellitus: Code(s): E11.9 - Type 2 diabetes mellitus without complications; Z79.4 - terminal supervisor (current) use of insulin Status: Acute Assessment and Plan: Continue sliding scale insulin Accu-Cheks (6) Decubitus ulcer of sacral region: Code(s): L89.159 - Pressure ulcer of sacral region, unspecified stage Status: Acute Assessment and Plan: Sacral decubitus ulcer with cellulitis and osteomyelitis as seen on CT scan of the abdomen and pelvis -continue antibiotics as above -s plan for surgical debridement today -02/21/2023: off note patient has had sharp excisional debridement of sacral decubitus ulcer measuring 9 cm x 5 cm including skin, subcutaneous fat, muscle and tendon by surgery here at [facility] 08/05/2023: CT scan of the abdomen and pelvis along with lumbar without contrast -?Prominent soft tissue thickening and subcutaneous emphysema in the medial right buttock area, extending into the region of the right sacrum and presacral space consistent with cellulitis and possible gangrene, with lower right sacral bone destruction consistent with osteomyelitis (7) Sacral osteomyelitis: Code(s): M46.28 - Osteomyelitis of vertebra, sacral and sacrococcygeal region Status: Acute Assessment and Plan: As above (8) Cellulitis of buttock: Code(s): L03.317 - Cellulitis of buttock Status: Acute Assessment and Plan: As above (9) Electrolyte abnormality: Code(s): E87.8 - Other disorders of electrolyte and fluid balance, not elsewhere classified Status: Acute Assessment
[2023-08-08] MEDS: NEOMYCIN/POLYMYXIN/BACITRACIN OINTMENT PACKET 1 PACKET (08:53)
[2023-08-08] MEDS: VANCOMYCIN 1,250 MG/NS 250 ML 1,250 MG/250 ML BAG 166.67 MG IVPB (08:53)
[2023-08-08] MEDS: TOLNAFTATE 1% POWDER 45 GM BTL 1 APPLIC TOPICAL ×2 (08:53→19:36)
--- NOTE | 2023-08-08 10:36 | PCFNICU ---
ICU Rounding Note: Pt current nutrition is NPO for debridement. Last recorded weight is 82.5 kg, up from 80.6kg on admit. Bowel Motility:+BM reported 08/07 Labs Reviewed:Glu 277, BUN 76, GFR 22,Cr 2.2 Meds Noted:Vancomycin, Zofran Skin:stage IV pressure ulcer to saccum. Deep Tissue injury to bilateral heels. Additional Notes: Patient is NPO for debridement. Patient has been tolerating regular diet at 100% of meals. Recommend a Diabetic diet with Emerson BID and Glucerna shakes BID when diet order advances. Follow daily in ICU rounds. Follow up in 3 days.
--- NOTE | 2023-08-08 10:57 | PC.NURSE ---
1055-TO OR PER BED.
[2023-08-08] MEDS: LACTATED RINGERS 1,000 ML 30 ML IV CONT (11:00)
--- NOTE | 2023-08-08 11:25 | WPDANESEPPF ---
Anes - Initial Pre Proc Eval Procedure: Operation Date: 08/08/23 12:00 Proposed Procedures p Debridement Sacral Decubitus Wound,Placement Of Wound Vac - Fernando Cruz MD Date/Time: 08/08/23 11:25 Surgeon: Amaury Parrish MD Pre Op Diagnosis: cellulitis,decubitus ulcer,osteomyelitis,uti,latonya Patient Data Age: 78 Gender: F Height: 1.73 m Weight: 82.5 kg Last Vital Signs Temp 36.3 C L 08/08/23 07:32 Pulse 87 08/08/23 10:00 Resp 16 08/08/23 10:00 BP 130/74 08/08/23 10:00 Pulse Ox 98 08/08/23 10:00 O2 Del Method Nasal Cannula 08/08/23 08:00 O2 Flow Rate 4 08/08/23 08:00 Allergies Allergy/AdvReac Type Severity Reaction Status Date / Time No Known Allergies Allergy Verified 08/05/23 09:49 Home Medications Medication Instructions Recorded Confirmed Type acetaminophen 325 mg tablet 650 mg PO Q6H PRN Pain (Scale 02/20/23 08/05/23 History (Tylenol) Score 1-3) allopurinol 300 mg tablet 300 mg PO DAILY 02/20/23 08/05/23 History aspirin 81 mg tablet,delayed 81 mg PO DAILY 02/20/23 08/05/23 History release fenofibrate 160 mg tablet 160 mg PO DAILY 02/20/23 08/05/23 History glimepiride 4 mg tablet 4 mg PO BID 02/20/23 08/05/23 History insulin degludec 100 unit/mL (3 10 unit subcut DAILY 02/20/23 08/05/23 History mL) subcutaneous pen (Tresiba FlexTouch U-100 insulin) insulin regular hum U-500 conc 500 See Rx Instructions .Route .COMPLEX 02/20/23 08/05/23 History unit/mL(3 mL) subcut pen (Humulin R U-500 (Conc) Insulin Kwikpen) lisinopril 20 mg tablet 20 mg PO DAILY 02/20/23 08/05/23 History docusate sodium 100 mg capsule 100 mg PO DAILY PRN constipation 1 02/26/23 08/05/23 Rx month #30 caps Laboratory Tests 08/07/23 08/07/23 08/08/23 11:59 17:57 00:42 WBC RBC Hgb Hct MCV MCH MCHC RDW Plt Count MPV Sodium Potassium Chloride Carbon Dioxide Anion Gap BUN Creatinine Estim Creat Clear Calc Estimated GFR Glucose POC Capillary Glucose 67 mg/dl 204 H mg/dl 259 H mg/dl (65-105) (65-105) (65-105) Calcium Phosphorus Magnesium Total Bilirubin AST ALT Alkaline Phosphatase Total Protein Albumin Random Vancomycin 08/08/23 05:34 WBC 13.6 H K/mm3 (4.5-10.0) RBC 2.74 L M/mm3 (4.2-5.4) Hgb 7.5 L g/dL (12.0-15.0) Hct 23.8 L % (37.0-47.0) MCV 86.9 fl (80-100) MCH 27.4 pg (26-34) MCHC 31.5 L g/dl (32-36) RDW 15.9 H % (11.5-14.5) Plt Count 506 H k/mm3 (150-375) MPV 9.1 fl (7.4-10.4) Sodium 139 mmol/L (137-145) Potassium 3.9 mmol/L (3.4-5.0) Chloride 108 H mmol/L (98-107) Carbon Dioxide 24 mmol/L (22-30) Anion Gap 7 L mmol/L (8-16) BUN 76 H D mg/dL (7-17) Creatinine 2.20 H mg/dL (0.7-1.0) Estim Creat Clear Calc 21 ml/min Estimated GFR 22 L (59 - ) Glucose 277 H mg/dL (65-110) POC Capillary Glucose Calcium 8.2 L mg/dL (8.4-10.2) Phosphorus 4.1 mg/dL (2.5-4.5) Magnesium 1.8 mg/dL (1.6-2.3) Total Bilirubin 0.2 mg/dL (0.2-1.3) AST 26 U/L (14-36) ALT 18 U/L (6-35) Alkaline Phosphatase 49 U/L (38-126) Total Protein 5.0 L g/dL (6.3-8.2) Albumin 2.7 L g/dL (3.5-5.1) Random Vancomycin 18.7 ug/mL (10-20) Patient hx anesthesia problems: none Family hx anesthesia problems: none Results Review: All pre-operative results and documents have been reviewed as part of the pre-operative evaluation. [facility] Past Medical History Medical History Chronic kidney di
[2023-08-08 11:32] LABS: Glucose Point of Care 130 mg/dl (65-105)
--- NOTE | 2023-08-08 11:48 | P.PNNP_ITS ---
Progress Note: A&P Assessment and Plan (1) MIRIAM (acute kidney injury): Code(s): N17.9 - Acute kidney failure, unspecified Status: Acute Assessment and Plan: * some/slow improvement noted * suspect ATN from multifactorial etiology: * hemodynamic instability/hypotension * prerenal factors * infection/sepsis * ongoing YEHUDA-I use prior to admission * evaluation to date: * urine eosinophils negative * urine electrolytes non-prerenal * renal ultrasound w/o obstruction * CPK mildly elevated -- not enough to affect kidney function * follow trend of repeat labs and UOP (2) Stage 3b chronic kidney disease: Code(s): N18.32 - Chronic kidney disease, stage 3b Status: Chronic Assessment and Plan: * baseline creatinine runs 1.1 - 1.6mg/dl (but has been as high as 2.0mg/ld in the past) * present since as far back as 2018 * presumably secondary to hypertension, diabetes, vascular disease and age- related change (3) Septic shock: Code(s): A41.9 - Sepsis, unspecified organism; R65.21 - Severe sepsis with septic shock Status: Acute Assessment and Plan: * resolving * as noted by AMS/lethargy, hypoglycemia, weakness, and hypotension * s/p aggressive IVF resuscitation * initiated on vasopressor therapy to maintain MAP on evening of admission -- has since been weaned off * suspected source = UTI + infected decubitus ulcer + cellulitis of buttocks + sacral osteomyelitis * follow culture data * urine culture with E.coli * blood cultures (1/2 bottles) with Staph epidermis * on antibiotics (4) Decubitus ulcer of sacral region: Code(s): L89.159 - Pressure ulcer of sacral region, unspecified stage Status: Acute Assessment and Plan: * complicated by buttock cellulitis and osteomyelitis (as noted by imaging) * already on antibiotic therapy * Surgery following -- plan debridement today (5) Insulin dependent type 2 diabetes mellitus: Code(s): E11.9 - Type 2 diabetes mellitus without complications; Z79.4 - nursing home (current) use of insulin Status: Acute Assessment and Plan: * follow accu-cheks * glycemic control per fish frog or oyster farmer/hospitalists Will continue to follow. Subjective Date/time seen: 08/08/23 11:48 Interval history: Follow-up for acute kidney injury/acute renal failure on chronic kidney disease. Remains hemodynamically stable off vasopressor therapy; no other issues/events o vernight or earlier this morning; tentatively scheduled for surgery today for her wounds/decubitus ulcer; better urine output in the last 24 hours with improvement in renal function noted; no apparent distress but remains somewhat confused. Exam Narrative: General: elderly female in NAD Heart: normal S1 and S2; no rub Lungs: clear to auscultation Abdomen: soft, nontender, nondistended, positive bowel sounds Extremities: no cyanosis or clubbing; 1+ edema Skin: warm and intact (LEs) Objective Data Vital Signs Vital Signs: Vital Signs Temp Pulse Resp BP Pulse Ox O2 Del Method O2 Flow Rate 08/08/23 11:00 97.8 F 87 20 129/69 97 Nasal Cannula 4 08/08/23 10:00 87 08/08/23 10:00 91 16 130/74 98 08/08/23 08:00 82 18 97 Nasal Cannula 4 08/08/23 08:00 82 08/08/23 07:32 97.4 F L 82 16 136/69 97 08/08/23 06:00
--- NOTE | 2023-08-08 11:48 | PM.PNNEP ---
Progress Note: A&P Assessment and Plan (1) MIRIAM (acute kidney injury): Code(s): N17.9 - Acute kidney failure, unspecified Status: Acute Assessment and Plan: some/slow improvement noted suspect ATN from multifactorial etiology: hemodynamic instability/hypotension prerenal factors infection/sepsis ongoing YEHUDA-I use prior to admission evaluation to date: urine eosinophils negative urine electrolytes non-prerenal renal ultrasound w/o obstruction CPK mildly elevated -- not enough to affect kidney function follow trend of repeat labs and UOP (2) Stage 3b chronic kidney disease: Code(s): N18.32 - Chronic kidney disease, stage 3b Status: Chronic Assessment and Plan: baseline creatinine runs 1.1 - 1.6mg/dl (but has been as high as 2.0mg/ld in the past) present since as far back as 2019 presumably secondary to hypertension, diabetes, vascular disease and age-related change (3) Septic shock: Code(s): A41.9 - Sepsis, unspecified organism; R65.21 - Severe sepsis with septic shock Status: Acute Assessment and Plan: resolving as noted by AMS/lethargy, hypoglycemia, weakness, and hypotension s/p aggressive IVF resuscitation initiated on vasopressor therapy to maintain MAP on evening of admission -- has since been weaned off suspected source = UTI + infected decubitus ulcer + cellulitis of buttocks + sacral osteomyelitis follow culture data urine culture with E.coli blood cultures (1/2 bottles) with Staph epidermis on antibiotics (4) Decubitus ulcer of sacral region: Code(s): L89.159 - Pressure ulcer of sacral region, unspecified stage Status: Acute Assessment and Plan: complicated by buttock cellulitis and osteomyelitis (as noted by imaging) already on antibiotic therapy Surgery following -- plan debridement today (5) Insulin dependent type 2 diabetes mellitus: Code(s): E11.9 - Type 2 diabetes mellitus without complications; Z79.4 - senior living (current) use of insulin Status: Acute Assessment and Plan: follow accu-cheks glycemic control per door to door selling distributor/hospitalists Will continue to follow. Subjective Date/time seen: 08/08/23 11:48 Interval history: Follow-up for acute kidney injury/acute renal failure on chronic kidney disease. Remains hemodynamically stable off vasopressor therapy; no other issues/events overnight or earlier this morning; tentatively scheduled for surgery today for her wounds/decubitus ulcer; better urine output in the last 24 hours with improvement in renal function noted; no apparent distress but remains somewhat confused. Exam Narrative: General: elderly female in NAD Heart: normal S1 and S2; no rub Lungs: clear to auscultation Abdomen: soft, nontender, nondistended, positive bowel sounds Extremities: no cyanosis or clubbing; 1+ edema Skin: warm and intact (LEs) Objective Data Vital Signs Vital Signs: Vital Signs Temp Pulse Resp BP Pulse Ox O2 Del Method O2 Flow Rate 08/08/23 11:00 97.8 F 87 20 129/69 97 Nasal Cannula 4 08/08/23 10:00 87 08/08/23 10:00 91 16 130/74 98 08/08/23 08:00 82 18 97 Nasal Cannula 4 08/08/23 08:00 82 08/08/23 07:32 97.4 F L 82 16 136/69 97 08/08/23 06:00 78 14 136/69 97 08/08/23 06:00 85 08/08/23 04:00 98.0 F 85 19 112/54 L 98 08/08/23 04:00 85 08/08/23 03:54 98 Nasal Cannula 5 08/08/23 02:00 86 22 H 105/54 L 94 08/08/23 02:00 86 08/08/23 01:06 92 18 93 Autopap 08/08/23 00:00 92 Autopap 08/08/23 00:00 98.1 F 93 17 116/61 92 08/08/23 00:00 93 08/07/23 22:00 93 23 H 118/81 94 08/07/23 22:00 93 08/07/23 20:40 95 21 H 93 Autopap 08/07/23 20:00 98.1 F 92 15 109/52 L 93 08/07/23 20:00 92 08/07/23 20:00 96 Nasal Cannula 3 08/07/23 18:00
--- NOTE | 2023-08-08 12:06 | PM.PNGS ---
Progress Note: A&P Assessment and Plan (1) Decubitus ulcer, stage 4 with infection: Code(s): L89.94 - Pressure ulcer of unspecified site, stage 4; L08.9 - Local infection of the skin and subcutaneous tissue, unspecified Status: Acute Assessment and Plan: Patient is stabilized to the point that she be taken to the operating for anesthetic to perform debridement and opening of the sacral decubitus ulcer wound. A plan on placing a wound VAC to manage the wound in the operating room. I discussed the procedure with the patient's daughter yesterday by telephone and she understands. Subjective Subjective Date/Time Seen: 08/08/23 12:06 Interval history: Patient remains stable need ICU. Still remains off of pressors. She is somewhat confused but I think that is baseline dementia. Exam Skin: Other: Stage IV sacral decubitus wound with drainage of seropurulent fluid. Base of the wound is clean with there is tunneling for about 6 to 7 cm lateral into the right medial buttock region. Objective Data Vital Signs Vital Signs: Vital Signs - 24 hr 08/07/23 14:00 08/07/23 14:00 08/07/23 16:00 Temperature Pulse Rate 93 93 95 Respiratory Rate 12 Blood Pressure 105/51 L Pulse Oximetry 93 Oxygen Delivery Oxygen Flow Rate 08/07/23 16:00 08/07/23 16:00 08/07/23 18:00 Temperature 36.6 C Pulse Rate 95 100 Respiratory Rate 13 Blood Pressure 95/72 L Pulse Oximetry 94 91 Oxygen Delivery Nasal Cannula Oxygen Flow Rate 3 08/07/23 18:00 08/07/23 20:00 08/07/23 20:00 Temperature Pulse Rate 100 92 Respiratory Rate 17 Blood Pressure 111/62 Pulse Oximetry 95 96 Oxygen Delivery Nasal Cannula Oxygen Flow Rate 3 08/07/23 20:00 08/07/23 20:40 08/07/23 22:00 Temperature 36.7 C Pulse Rate 92 95 93 Respiratory Rate 15 21 H Blood Pressure 109/52 L Pulse Oximetry 93 93 Oxygen Delivery Autopap Oxygen Flow Rate 08/07/23 22:00 08/08/23 00:00 08/08/23 00:00 Temperature 36.7 C Pulse Rate 93 93 93 Respiratory Rate 23 H 17 Blood Pressure 118/81 116/61 Pulse Oximetry 94 92 Oxygen Delivery Oxygen Flow Rate 08/08/23 00:00 08/08/23 01:06 08/08/23 02:00 Temperature Pulse Rate 92 86 Respiratory Rate 18 Blood Pressure Pulse Oximetry 92 93 Oxygen Delivery Autopap Autopap Oxygen Flow Rate 08/08/23 02:00 08/08/23 03:54 08/08/23 04:00 Temperature Pulse Rate 86 85 Respiratory Rate 22 H Blood Pressure 105/54 L Pulse Oximetry 94 98 Oxygen Delivery Nasal Cannula Oxygen Flow Rate 5 08/08/23 04:00 08/08/23 06:00 08/08/23 06:00 Temperature 36.7 C Pulse Rate 85 85 78 Respiratory Rate 19 14 Blood Pressure 112/54 L 136/69 Pulse Oximetry 98 97 Oxygen Delivery Oxygen Flow Rate 08/08/23 07:32 08/08/23 08:00 08/08/23 08:00 Temperature 36.3 C L Pulse Rate 82 82 82 Respiratory Rate 16 18 Blood Pressure 136/69 Pulse Oximetry 97 97 Oxygen Delivery Nasal Cannula Oxygen Flow Rate 4 08/08/23 10:00 08/08/23 10:00 08/08/23 11:00 Temperature 36.6 C Pulse Rate 91 87 87 Respiratory Rate 16 20 Blood Pressure 130/74 129/69 Pulse Oximetry 98 97 Oxygen Delivery Nasal Cannula Oxygen Flow Rate 4 Intake/Output Intake/Output: Intake & Output 08/05/23 08/06/23 08/07/23 08/08/23 23:59 23:59 23:59 23:59 Intake Total 3300 3320 1940 600 Output Total 600 1075 1100 Balance 3300 2720 865 -500 Meds/Results Medications: Active Medications Generic Name Dose Route Start Last Admin Trade Name Freq PRN Reason Stop Dose Admin Acetaminophen 650 mg 08/05/23 16:55 08/05/23 21:06 Acetaminophen 325 Mg Tablet PO 650 mg Q4H PRN Administration Mild Pain (1-3) or Fever Dextrose 12.5 gm 08/05/23 10:06 Dextrose 50% 25 Gm/50 Ml Syringe IV PUSH PRN PRN Hypoglycemia Protocol Fentanyl Citrate 25 mcg 08/08/23 11:36 Fentanyl Citrate Inj (*Crx) 100 Mc
--- NOTE | 2023-08-08 12:08 | WPDHPUPDATE1 ---
History and Physical Update Update Date/Time: 08/08/23 12:08 History and Physical has been reviewed, including an updated exam of the patient. There are NO changes in the patient's condition. Risks, benefits, and alternatives have been discussed and questions answered. Patient agrees to proceed with procedure.
[2023-08-08 14:15] LABS: Glucose Point of Care 134 mg/dl (65-105)
--- NOTE | 2023-08-08 14:33 | P.OP_ITS ---
Procedure Note - Detailed Date of Procedure 08/08/23 Pre-op Diagnosis cellulitis,decubitus ulcer,osteomyelitis,uti,latonya Post-op Diagnosis Same Procedure Performed Sharp excisional scalpel and scissor debridement of subcutaneous tissue, bone, and fascia of sacral decubitus ulcer with placement of wound VAC. Surgeon Fernando Cruz MD Anesthesia General Indications patient is a 78-year-old female who has developed a very deep stage IV sacral decubitus ulcer and presented with sepsis.. There is some necrotic tissue and undermining but also exposed bone at the base of the wound. She presents now for debridement of the wound. Findings sacral decubitus wound stage IV measuring 10cm in transverse length by 4cm in vertical width by 3cm in depth. There is undermining to the right side for 3 to 4 cm. At the base of the wound the sacral bone is exposed with some sharp edges of eroded bone. Wound VAC was placed after debridement covering a total surface area 40 sq cm. Description of Procedure After informed consent was obtained from the patient's daughter who is the patient's power of securities attorney she was brought to the operating room where she was placed under general endotracheal anesthesia and then placed prone on the operating table. The area these were sacral decubitus wound was then prepped and draped in usual sterile fashion. A time-out was performed verifying the procedure to be performed and as she was already on scheduled IV antibiotics. I then started by irrigating out the wound with sterile saline solution. There was tunneling of the wound to the right side by 3 to 4 cm. At the base of the wound the sacral bone was exposed and somewhat eroded with some sharp edges. Minimal granulation tissue was present. In the undermined area there was some necrotic subcutaneous tissue and chronic fascia. I incised the skin in the area of the undermining so they could be packed easier. I then sharply with scissors and scalpel perform excisional debridement of the nonviable subcutane ous tissue and fascia in that area. I then proceeded to sharply debride the sharp edges of infected bone on the sacrum utilizing a rongeur and then a rasp. I then irrigated out the incision sterile saline solution. All the remaining tissue appeared to be viable. I then measured the wound and it was 10 cm in transverse length by 4cm in vertical width by 3cm in depth. I achieved hemostasis and wound utilized electrocautery and then placed black foam into the wound for wound VAC. the suction pad was placed laterally on the left hip. There was a small area of skin breakdown just the right and inferior to the wound and so a piece of DuoDerm patch dressing was placed on that area. The clear adhesive dressings were then placed on top of the DuoDerm and I achieved a good VAC seal. The patient tolerated the procedure well no complications. All sponges, needles, and instrument counts were correct at the end procedure. EBL was 30___cc. The patient was awakened and taken to recovery in stable and satisfactory condition. Estimated Blood Loss -30.0 Drains No Packing Yes (Wound VAC 40 sq cm) Pathology None sent Complications No immediate complications Condition Stable Disposition PACU [facility] Billing Surgery - Charge Forward: Surgery Billing
--- NOTE | 2023-08-08 15:30 | PC.NURSE ---
1520-Back from surgery. VSS. Wound vac in place. No apparent distress noted. Will continue to monitor.
[2023-08-08 15:41] LABS: Glucose Point of Care 138 mg/dl (65-105)
--- NOTE | 2023-08-08 18:45 | PM.IMPN ---
Progress Note: A&P Assessment and Plan (1) Shock: Code(s): R57.9 - Shock, unspecified Status: Acute Assessment and Plan: Septic shock secondary to osteomyelitis, UTI and soft tissue and sacral infection Patient was on Levophed which has been weaned off She has received significant IV fluids but are now discontinued -urine output is improving acute on chronic renal failure -08/05 blood cultures 1/ Staph Epi. Could be contaminant -08/05 urine cultures: Growing E coli sensitive to cephalosporins -WBC trending down -patient underwent surgical debridement earlier today -continue clindamycin, meropenem and vancomycin (08/06) (2) Sepsis: Qualifiers: Sepsis acute organ dysfunction status: with acute organ dysfunction Sepsis type: sepsis due to unspecified organism Severe sepsis acute organ dysfunction type: unspecified Severe sepsis shock status: with septic shock Qualified Code(s): A41.9 - Sepsis, unspecified organism; R65.21 - Severe sepsis with septic shock Code(s): A41.9 - Sepsis, unspecified organism Status: Acute Assessment and Plan: As above (3) Acute on chronic kidney failure: Code(s): N17.9 - Acute kidney failure, unspecified; N18.9 - Chronic kidney disease, unspecified Status: Acute Assessment and Plan: Patient has a history of chronic kidney disease with baseline Cr around 1.1-1.7 . She presents with acute on chronic kidney disease likely related to hypotension, shock, ATN, UTI, and medications (was on lisinopril at home). -urine lytes did not show prerenal picture, urine eosinophils are negative; Total CK 755 but better on recheck -08/06 renal ultrasound:?Left renal cysts, largest measuring 1.7 cm. -adequately fluid-resuscitated at this time and now fluids stopped -urine output better -metabolic gap acidosis improved with IV fluids with bicarb -creatinine improving and is 2.2 today -monitor urine output, electrolytes and creatinine -nephrology following and appreciate their input (4) Urinary tract infection: Qualifiers: Hematuria presence: without hematuria Urinary tract infection type: site unspecified Qualified Code(s): N39.0 - Urinary tract infection, site not specified Code(s): N39.0 - Urinary tract infection, site not specified Status: Acute Assessment and Plan: UA noted. IV abx started. Urine culture growing EColi -continue antibiotics as above (5) Insulin dependent type 2 diabetes mellitus: Code(s): E11.9 - Type 2 diabetes mellitus without complications; Z79.4 - retirement (current) use of insulin Status: Acute Assessment and Plan: A1c 8.3 The patient's blood glucose was reviewed on 08/08 Glucose reasonably well controlled. Continue AccuCheks covering with sliding scale. Hypoglycemia protocol available as needed. Continue to monitor (6) Decubitus ulcer of sacral region: Code(s): L89.159 - Pressure ulcer of sacral region, unspecified stage Status: Acute Assessment and Plan: Sacral decubitus ulcer with cellulitis and osteomyelitis as seen on CT scan of the abdomen and pelvis CT 08/05 showing prominent soft tissue thickening and subcu emphysema on the medial right buttock area extending into the region of the right sacrum and presacral space consistent with cellulitis and possible gangrene. Lower right sacral bone destruction noted consistent with osteomyelitis. Underwent surgical debridement earlier today. -continue antibiotics as above (7) Sacral osteomyelitis: Code(s): M46.28 - Osteomyelitis of vertebra, sacral and sacrococcygeal region Status: Acute Assessment and Plan: As above (8) Cellulitis of buttock: Code(s): L03.317 - Cellulitis of buttock Status: Acute Assessment and Plan: As above (9) Electrolyte abnormality: Code(s): E87.8 - Other disorders of electrolyte and fluid balance, not elsewhere c
[2023-08-08] MEDS: ONDANSETRON INJ 4 MG/2 ML VIAL IV PUSH (19:40)
[2023-08-09] VITALS (17 sets, daily range): BP systolic 95–129; BP diastolic 53–71; PULSE 72–96; RESP 12–20; TEMP 36.2–36.9; O2SAT 94–100
[2023-08-09] MEDS: MEROPENEM 500 MG in SODIUM CHLORIDE 0.9% IV 100 ML 200 ML IVPB ×2 (00:23→14:09)
[2023-08-09] MEDS: CLINDAMYCIN 900 MG/D5W 50 ML 900 MG/50 ML PIGGYBACK 50 MG IVPB ×3 (00:25→18:19)
[2023-08-09 00:43] LABS: Glucose Point of Care 190 mg/dl (65-105)
[2023-08-09 05:09] LABS: Hemoglobin 7.9 g/dL (12.0-15.0); Mean Corpuscular HGB Conc 30.4 g/dl (32-36); Mean Corpuscular Volume 88.7 fl (80-100); Platelet Count Result 502 k/mm3 (150-375); Red Blood Count 2.93 M/mm3 (4.2-5.4); White Blood Count 10.8 K/mm3 (4.5-10.0)
[2023-08-09 05:15] LABS: Alanine Aminotransferase 18 U/L (6-35); Albumin Level 2.8 g/dL (3.5-5.1); Alkaline Phosphatase 44 U/L (38-126); Anion Gap 6 mmol/L (8-16); Aspartate Amino Transferase 28 U/L (14-36); Bilirubin,Total 0.3 mg/dL (0.2-1.3); Blood Urea Nitrogen 61 mg/dL (7-17); Calcium 8.9 mg/dL (8.4-10.2); Carbon Dioxide 27 mmol/L (22-30); Chloride 110 mmol/L (98-107); Estimated CRCL calculation 26 ml/min; Estimated Glomerular Filt Rate 27; Glucose 161 mg/dL (65-110); Magnesium 1.7 mg/dL (1.6-2.3); Potassium 3.3 mmol/L (3.4-5.0); Sodium 143 mmol/L (137-145)
[2023-08-09] MEDS: CENTRAL LINE FLUSH 10 ML IV PUSH ×3 (05:18→20:50)
--- NOTE | 2023-08-09 08:57 | PM.PNGS ---
Progress Note: A&P Assessment and Plan (1) Decubitus ulcer, stage 4 with infection: Code(s): L89.94 - Pressure ulcer of unspecified site, stage 4; L08.9 - Local infection of the skin and subcutaneous tissue, unspecified Status: Acute Assessment and Plan: Continue present management. Okay from surgery standpoint to transfer out of the ICU. Wound VAC dressing will be changed at bedside tomorrow by wound care nurses. Subjective Subjective Date/Time Seen: 08/09/23 08:57 Interval history: Patient sitting up eating breakfast in the ICU. Off all pressors. Plans are to downgrade her to IMU or floor status. Wound VAC seems to be working well. Exam Skin: Other: Stage IV sacral decubitus ulcer dressed with wound VAC. Output from the wound VAC is old bloody serous drainage. Wound VAC dressing intact. Objective Data Vital Signs Vital Signs: Vital Signs - 24 hr 08/08/23 10:00 08/08/23 10:00 08/08/23 11:00 Temperature 36.6 C Pulse Rate 91 87 87 Respiratory Rate 16 20 Blood Pressure 130/74 129/69 Pulse Oximetry 98 97 Oxygen Delivery Nasal Cannula Oxygen Flow Rate 4 08/08/23 14:10 08/08/23 14:25 08/08/23 14:40 Temperature 36.2 C L Pulse Rate 90 89 93 Respiratory Rate 12 10 L 18 Blood Pressure 149/73 H 156/81 H 149/76 H Pulse Oximetry 100 100 100 Oxygen Delivery Simple Face Mask Simple Face Mask Simple Face Mask Oxygen Flow Rate 8 8 8 08/08/23 14:55 08/08/23 12:00 08/08/23 12:00 Temperature Pulse Rate 92 93 Respiratory Rate 16 Blood Pressure 158/70 H Pulse Oximetry 100 99 Oxygen Delivery Nasal Cannula Oxygen Flow Rate 4 2 08/08/23 15:55 08/08/23 16:00 08/08/23 16:00 Temperature 36.5 C Pulse Rate 91 90 93 Respiratory Rate 17 12 Blood Pressure 148/70 H Pulse Oximetry 97 97 Oxygen Delivery Nasal Cannula Oxygen Flow Rate 2 08/08/23 16:00 08/08/23 18:00 08/08/23 18:00 Temperature 36.5 C Pulse Rate 93 95 95 Respiratory Rate 17 18 Blood Pressure 133/71 130/73 Pulse Oximetry 97 95 Oxygen Delivery Oxygen Flow Rate 08/08/23 19:46 08/08/23 20:00 08/08/23 20:00 Temperature 36.6 C Pulse Rate 92 91 90 Respiratory Rate 15 14 Blood Pressure 114/49 L Pulse Oximetry 96 95 Oxygen Delivery Nasal Cannula Oxygen Flow Rate 1.5 08/08/23 22:00 08/08/23 22:00 08/08/23 23:20 Temperature Pulse Rate 84 83 80 Respiratory Rate 13 19 Blood Pressure 121/53 L Pulse Oximetry 99 97 Oxygen Delivery Nasal Cannula Oxygen Flow Rate 1.5 08/09/23 00:00 08/09/23 00:00 08/09/23 02:00 Temperature 36.7 C Pulse Rate 78 83 81 Respiratory Rate 16 Blood Pressure 114/64 Pulse Oximetry 97 Oxygen Delivery Oxygen Flow Rate 08/09/23 02:00 08/09/23 03:40 08/09/23 04:00 Temperature 36.9 C Pulse Rate 81 77 78 Respiratory Rate 17 17 12 Blood Pressure 95/53 L 113/55 L Pulse Oximetry 99 98 98 Oxygen Delivery Nasal Cannula Oxygen Flow Rate 1.5 08/09/23 04:00 08/09/23 06:00 08/09/23 06:00 Temperature Pulse Rate 84 77 78 Respiratory Rate 15 Blood Pressure 101/53 L Pulse Oximetry 94 Oxygen Delivery Oxygen Flow Rate 08/09/23 07:59 08/09/23 08:00 08/09/23 08:00 Temperature 36.5 C Pulse Rate 89 89 89 Respiratory Rate 14 14 Blood Pressure 108/57 L Pulse Oximetry 100 100 Oxygen Delivery Nasal Cannula Oxygen Flow Rate 1 Intake/Output Intake/Output: Intake & Output 08/06/23 08/07/23 08/08/23 08/09/23 23:59 23:59 23:59 23:59 Intake Total 3320 1940 2330 250 Output Total 600 1075 1800 650 Balance 2720 865 530 -400 Meds/Results Medications: Active Medications Generic Name Dose Route Start Last Admin Trade Name Freq PRN Reason Stop Dose Admin Acetaminophen 650 mg 08/05/23 16:55 08/05/23 21:06 Acetaminophen 325 Mg Tablet PO 650 mg Q4H PRN Administration Mild Pain (1-3) or Fever Hydrocodone Bitart/Acetaminophen 1 tab 08/09/23 07:54 Hyd
[2023-08-09] MEDS: POTASSIUM BICARBONATE 25 MEQ TABEF 50 MEQ PO (09:37)
[2023-08-09] MEDS: TOLNAFTATE 1% POWDER 45 GM BTL 1 APPLIC TOPICAL ×2 (09:37→20:50)
[2023-08-09] MEDS: HYDROcodone/acetaminophen (*CRX) 5-325 MG TABLET 1 TAB PO ×2 (09:38→18:21)
--- NOTE | 2023-08-09 10:35 | PCFNICU ---
ICU Rounding Note: Pt current nutrition is Regular. Nutrition recommendation: resume VELMA BID, Glucerna shake TID Last recorded weight is 84.5 kg. Bowel Motility: + BM 08/07 Labs Reviewed: Hgb:7.9, HCT:26, Alb:2.8, K:3.3, GFR:27, BUN:61, Cr:1.8, Glu:161 Meds Noted: novolog, zofran, vancomycin Skin: Stage IV to sacrum, DTPI to hip, Juan Manuel heels Additional Notes: Pt diet resumed as regular, intake 60-100%. Recommend to resume supplements for wound healing. Following daily in ICU rounds. Monitoring diet advancement, wound healing, labs, weights Follow daily in ICU rounds. Follow up in 3 days.
--- NOTE | 2023-08-09 11:00 | WPDINTPN ---
Progress Note: A&P Assessment and Plan (1) Shock: Code(s): R57.9 - Shock, unspecified Status: Acute Assessment and Plan: Septic shock secondary to osteomyelitis, soft tissue and skin infection, UTI Patient was early on Levophed which has been weaned off She has received significant IV fluids and I will discontinue further IV fluids at this time -urine output is improving acute on chronic renal failure -continue clindamycin, meropenem and vancomycin (08/06). Will discontinue clindamycin after today's (96 hours) dosing -08/05 blood cultures 11/27 Staph epidermis which is likely contaminant -08/05 urine cultures: Growing E coli 08/08 Sharp excisional? scalpel and scissor debridement of subcutaneous tissue, bone, and fascia of sacral decubitus ulcer with placement of wound VAC. (2) Decubitus ulcer of sacral region: Code(s): L89.159 - Pressure ulcer of sacral region, unspecified stage Status: Acute Assessment and Plan: Sacral decubitus ulcer with cellulitis and osteomyelitis as seen on CT scan of the abdomen and pelvis Management as mentioned above -02/21/2023: off note patient has had sharp excisional debridement of sacral decubitus ulcer measuring 9 cm x 5 cm including skin, subcutaneous fat, muscle and tendon by surgery here at [facility] 08/05/2023: CT scan of the abdomen and pelvis along with lumbar without contrast -?Prominent soft tissue thickening and subcutaneous emphysema in the medial right buttock area, extending into the region of the right sacrum and presacral space consistent with cellulitis and possible gangrene, with lower right sacral bone destruction consistent with osteomyelitis (3) Urinary tract infection: Qualifiers: Hematuria presence: without hematuria Urinary tract infection type: site unspecified Qualified Code(s): N39.0 - Urinary tract infection, site not specified Code(s): N39.0 - Urinary tract infection, site not specified Status: Acute Assessment and Plan: Urine cultures growing E coli -continue antibiotics as above (4) Sepsis: Qualifiers: Sepsis acute organ dysfunction status: with acute organ dysfunction Sepsis type: sepsis due to unspecified organism Severe sepsis acute organ dysfunction type: unspecified Severe sepsis shock status: with septic shock Qualified Code(s): A41.9 - Sepsis, unspecified organism; R65.21 - Severe sepsis with septic shock Code(s): A41.9 - Sepsis, unspecified organism Status: Acute Assessment and Plan: As above (5) Acute on chronic kidney failure: Code(s): N17.9 - Acute kidney failure, unspecified; N18.9 - Chronic kidney disease, unspecified Status: Acute Assessment and Plan: Patient has a history of chronic kidney disease present presented with acute on chronic kidney disease likely related to hypotension, shock, ATN, UTI, on lisinopril at home. -adequately fluid-resuscitated at this time and will hold further fluids -replace low potassium -acidosis improved with IV fluids with bicarb -creatinine improving and is 1.8 today. Adequate urine output -monitor urine output, electrolytes and creatinine -nephrology following -urine lytes did not show prerenal picture, urine eosinophils are negative, elevated CK levels, -08/06 renal ultrasound:?Left renal cysts, largest measuring 1.7 cm. (6) Insulin dependent type 2 diabetes mellitus: Code(s): E11.9 - Type 2 diabetes mellitus without complications; Z79.4 - scheduling manager (current) use of insulin Status: Acute Assessment and Plan: Continue sliding scale insulin Accu-Cheks (7) Sacral osteomyelitis: Code(s): M46.28 - Osteomyelitis of vertebra, sacral and sacrococcygeal region Status: Acute Assessment and Plan: As above (8) Cellulitis of buttock: Code(s): L03.317 - Cellulitis of buttock Status: Acute Assessment and Plan: As above (9) Electrolyte abnormality:
[2023-08-09 11:42] LABS: Glucose Point of Care 310 mg/dl (65-105)
--- NOTE | 2023-08-09 11:46 | WPDANESPN ---
Anes - Prog Note Post-Op Date/Time: 08/09/23 11:46 Cardiovascular status: normal Respiratory status: normal Airway patency: baseline Mental status: baseline Post-Op hydration status: normal Vital Signs: Last Vital Signs Temp 36.5 C 08/09/23 07:59 Pulse 96 08/09/23 10:00 Resp 18 08/09/23 10:00 BP 113/59 L 08/09/23 10:00 Pulse Ox 99 08/09/23 10:00 O2 Del Method Nasal Cannula 08/09/23 08:00 O2 Flow Rate 1 08/09/23 08:00 Pain Score (VAS): 01/05 I/O: Intake & Output 08/08/23 08/09/23 08/09/23 23:59 07:59 15:59 Intake Total 530 250 360 Output Total 700 650 Balance -170 -400 360 Laboratory Tests 08/09/23 04:56 08/09/23 04:56 08/08/23 08/08/23 08/09/23 14:12 15:36 00:40 WBC RBC Hgb Hct MCV MCH MCHC RDW Plt Count MPV Sodium Potassium Chloride Carbon Dioxide Anion Gap BUN Creatinine Estim Creat Clear Calc Estimated GFR Glucose POC Capillary Glucose 134 H 138 H 190 H Calcium Phosphorus Magnesium Total Bilirubin AST ALT Alkaline Phosphatase Total Protein Albumin 08/09/23 08/09/23 04:56 11:36 WBC 10.8 H RBC 2.93 L Hgb 7.9 L Hct 26.0 L MCV 88.7 MCH 27.0 MCHC 30.4 L RDW 16.0 H Plt Count 502 H MPV 9.0 Sodium 143 Potassium 3.3 L Chloride 110 H Carbon Dioxide 27 Anion Gap 6 L BUN 61 H D Creatinine 1.80 H Estim Creat Clear Calc 26 Estimated GFR 27 L Glucose 161 H POC Capillary Glucose 310 H Calcium 8.9 Phosphorus 4.0 Magnesium 1.7 Total Bilirubin 0.3 AST 28 ALT 18 Alkaline Phosphatase 44 Total Protein 5.0 L Albumin 2.8 L Microbiology 08/05/23 11:45 Blood Blood Culture - Final Staphylococcus epidermidis 08/05/23 11:06 Urine Catheterized Urine Culture - Final Escherichia Coli Post-procedural complaints: none Patient Feedback: Patient satisfied with anesthetic care.
[2023-08-09] MEDS: ENOXAPARIN 30 MG/0.3 ML SYRINGE SUB-Q (11:51)
[2023-08-09] MEDS: INSULIN ASPART (*BKC) 100 UNITS/ML SUB-Q (11:51)
[2023-08-09] MEDS: POTASSIUM CHLORIDE 20 MEQ PACKET (FOR LIQUID) 40 MEQ PO (11:52)
--- NOTE | 2023-08-09 12:05 | P.PNNP_ITS ---
Progress Note: A&P Assessment and Plan (1) MIRIAM (acute kidney injury): Code(s): N17.9 - Acute kidney failure, unspecified Status: Acute Assessment and Plan: * slow improvement noted * suspect ATN from multifactorial etiology: * hemodynamic instability/hypotension * prerenal factors * infection/sepsis * ongoing YEHUDA-I use prior to admission * evaluation to date: * urine eosinophils negative * urine electrolytes non-prerenal * renal ultrasound w/o obstruction * CPK mildly elevated -- not enough to affect kidney function * follow trend of repeat labs and UOP (2) Stage 3b chronic kidney disease: Code(s): N18.32 - Chronic kidney disease, stage 3b Status: Chronic Assessment and Plan: * baseline creatinine runs 1.1 - 1.6mg/dl (but has been as high as 2.0mg/ld in the past) * present since as far back as 2018 * presumably secondary to hypertension, diabetes, vascular disease and age- related change (3) Septic shock: Code(s): A41.9 - Sepsis, unspecified organism; R65.21 - Severe sepsis with septic shock Status: Acute Assessment and Plan: * resolving * as noted by AMS/lethargy, hypoglycemia, weakness, and hypotension * s/p aggressive IVF resuscitation * initiated on vasopressor therapy to maintain MAP on evening of admission -- has since been weaned off * suspected source = UTI + infected decubitus ulcer + cellulitis of buttocks + sacral osteomyelitis * follow culture data * urine culture with E.coli * blood cultures (1/2 bottles) with Staph epidermis * on antibiotics (4) Decubitus ulcer of sacral region: Code(s): L89.159 - Pressure ulcer of sacral region, unspecified stage Status: Acute Assessment and Plan: * complicated by buttock cellulitis and osteomyelitis (as noted by imaging) * already on antibiotic therapy * Surgery following -- s/p debridement (on 08/08/23) * wound vac in place (5) Insulin dependent type 2 diabetes mellitus: Code(s): E11.9 - Type 2 diabetes mellitus without complications; Z79.4 - ocean transportation intermediary (current) use of insulin Status: Acute Assessment and Plan: * follow accu-cheks * glycemic control per web interface developer/hospitalists Will continue to follow. Subjective Date/time seen: 08/09/23 12:05 Interval history: Follow-up for acute kidney injury/acute renal failure on chronic kidney disease. S/P debridment of sacral decubitus ulcer with application of wound vac yesterday in the OR -- tolerated this intervention reasonably well; stable hemodynamics noted in the last few days; better urine output in the last 24 hours in association with improvement in renal function as well; no acute complaints voiced at the time of my visit. Exam Narrative: General: elderly female in NAD Heart: normal S1 and S2; no rub Lungs: clear to auscultation Abdomen: soft, nontender, nondistended, positive bowel sounds Extremities: no cyanosis or clubbing; tace - 1+ edema Skin: no rash; wound vac in place Objective Data Vital Signs Vital Signs: Vital Signs Temp Pulse Resp BP Pulse Ox O2 Del Method O2 Flow Rate 08/09/23 12:00 94 16 100 Nasal Cannula 1 08/09/23 12:00 94 08/09/23 11:52 98.3 F 94 16 113/59 L 100 08/09/23 10:00 96 08/09/23 10:00 95 18 113/59 L 99 08/09/23 08:00 89 14
--- NOTE | 2023-08-09 12:05 | PM.PNNEP ---
Progress Note: A&P Assessment and Plan (1) MIRIAM (acute kidney injury): Code(s): N17.9 - Acute kidney failure, unspecified Status: Acute Assessment and Plan: slow improvement noted suspect ATN from multifactorial etiology: hemodynamic instability/hypotension prerenal factors infection/sepsis ongoing YEHUDA-I use prior to admission evaluation to date: urine eosinophils negative urine electrolytes non-prerenal renal ultrasound w/o obstruction CPK mildly elevated -- not enough to affect kidney function follow trend of repeat labs and UOP (2) Stage 3b chronic kidney disease: Code(s): N18.32 - Chronic kidney disease, stage 3b Status: Chronic Assessment and Plan: baseline creatinine runs 1.1 - 1.6mg/dl (but has been as high as 2.0mg/ld in the past) present since as far back as 2019 presumably secondary to hypertension, diabetes, vascular disease and age-related change (3) Septic shock: Code(s): A41.9 - Sepsis, unspecified organism; R65.21 - Severe sepsis with septic shock Status: Acute Assessment and Plan: resolving as noted by AMS/lethargy, hypoglycemia, weakness, and hypotension s/p aggressive IVF resuscitation initiated on vasopressor therapy to maintain MAP on evening of admission -- has since been weaned off suspected source = UTI + infected decubitus ulcer + cellulitis of buttocks + sacral osteomyelitis follow culture data urine culture with E.coli blood cultures (1/2 bottles) with Staph epidermis on antibiotics (4) Decubitus ulcer of sacral region: Code(s): L89.159 - Pressure ulcer of sacral region, unspecified stage Status: Acute Assessment and Plan: complicated by buttock cellulitis and osteomyelitis (as noted by imaging) already on antibiotic therapy Surgery following -- s/p debridement (on 08/08/23) wound vac in place (5) Insulin dependent type 2 diabetes mellitus: Code(s): E11.9 - Type 2 diabetes mellitus without complications; Z79.4 - intermediate manager (current) use of insulin Status: Acute Assessment and Plan: follow accu-cheks glycemic control per freezer laboratory technician/hospitalists Will continue to follow. Subjective Date/time seen: 08/09/23 12:05 Interval history: Follow-up for acute kidney injury/acute renal failure on chronic kidney disease. S/P debridment of sacral decubitus ulcer with application of wound vac yesterday in the OR -- tolerated this intervention reasonably well; stable hemodynamics noted in the last few days; better urine output in the last 24 hours in association with improvement in renal function as well; no acute complaints voiced at the time of my visit. Exam Narrative: General: elderly female in NAD Heart: normal S1 and S2; no rub Lungs: clear to auscultation Abdomen: soft, nontender, nondistended, positive bowel sounds Extremities: no cyanosis or clubbing; tace - 1+ edema Skin: no rash; wound vac in place Objective Data Vital Signs Vital Signs: Vital Signs Temp Pulse Resp BP Pulse Ox O2 Del Method O2 Flow Rate 08/09/23 12:00 94 16 100 Nasal Cannula 1 08/09/23 12:00 94 08/09/23 11:52 98.3 F 94 16 113/59 L 100 08/09/23 10:00 96 08/09/23 10:00 95 18 113/59 L 99 08/09/23 08:00 89 14 100 Nasal Cannula 1 08/09/23 08:00 89 08/09/23 07:59 97.7 F 89 14 108/57 L 100 08/09/23 06:00 78 15 101/53 L 94 08/09/23 06:00 77 08/09/23 04:00 84 08/09/23 04:00 98.5 F 78 12 113/55 L 98 08/09/23 03:40 77 17 98 Nasal Cannula 1.5 08/09/23 02:00 81 17 95/53 L 99 08/09/23 02:00 81 08/09/23 00:00 83 08/09/23 00:00 98.1 F 78 16 114/64 97 08/08/23 23:20 80 19 97 Nasal Cannula 1.5 08/08/23 22:00 83 13 121/53 L 99 08/08/23 22:00 84 08/08/23 20:00 90 08/08/23 20:00 97.9 F 91 14 114/49 L 95
[2023-08-09] MEDS: MORPHINE SULFATE (*CRX) 2 MG/ML INJ IV PUSH (16:56)
[2023-08-09 17:16] LABS: Glucose Point of Care 173 mg/dl (65-105)
--- NOTE | 2023-08-09 17:48 | PM.IMPN ---
Progress Note: A&P Assessment and Plan (1) Shock: Code(s): R57.9 - Shock, unspecified Status: Acute Assessment and Plan: Septic shock secondary to osteomyelitis, UTI, bacteremia and soft tissue and sacral infection Patient was on Levophed which has been weaned off She received appropriate amount of IV fluids but now discontinued -urine output is improving -08/05 BCx (1of2) Staph Epi. Could be contaminant -08/05 UCx growing E coli sensitive to cephalosporins -WBC trending down -patient underwent surgical debridement 08/08 -continue clindamycin, meropenem and vancomycin (08/06) -Repeat BCx (2) Sepsis: Qualifiers: Sepsis acute organ dysfunction status: with acute organ dysfunction Sepsis type: sepsis due to unspecified organism Severe sepsis acute organ dysfunction type: unspecified Severe sepsis shock status: with septic shock Qualified Code(s): A41.9 - Sepsis, unspecified organism; R65.21 - Severe sepsis with septic shock Code(s): A41.9 - Sepsis, unspecified organism Status: Acute Assessment and Plan: As above (3) Acute on chronic kidney failure: Code(s): N17.9 - Acute kidney failure, unspecified; N18.9 - Chronic kidney disease, unspecified Status: Acute Assessment and Plan: Patient has a history of chronic kidney disease with baseline Cr around 1.1-1.7 . She presents with acute on chronic kidney disease with Cr of 4 likely related to hypotension, shock, ATN, UTI, and medications (was on lisinopril at home). -urine lytes did not show prerenal picture, urine eosinophils are negative; Total CK 755 but better on recheck -08/06 renal ultrasound:?Left renal cysts, largest measuring 1.7 cm. -adequately fluid-resuscitated at the time and now fluids stopped -urine output better -metabolic gap acidosis resolved with IV fluids with bicarb -creatinine improving and is 1.8 today -monitor urine output, electrolytes and creatinine -nephrology following and appreciate their input (4) Decubitus ulcer of sacral region: Code(s): L89.159 - Pressure ulcer of sacral region, unspecified stage Status: Acute Assessment and Plan: Sacral decubitus ulcer with cellulitis and osteomyelitis as seen on CT CT scan of the abdomen and pelvis 08/05 showing prominent soft tissue thickening and subcu emphysema on the medial right buttock area extending into the region of the right sacrum and presacral space consistent with cellulitis and possible gangrene. Lower right sacral bone destruction noted consistent with osteomyelitis. Underwent surgical debridement with sharp excisional?scalpel and scissor debridement of subcutaneous tissue, bone, and fascia of sacral decubitus ulcer with placement of wound VAC on 08/08. -continue antibiotics as above -continue Wound vac (5) Urinary tract infection: Qualifiers: Hematuria presence: without hematuria Urinary tract infection type: site unspecified Qualified Code(s): N39.0 - Urinary tract infection, site not specified Code(s): N39.0 - Urinary tract infection, site not specified Status: Acute Assessment and Plan: UA noted. IV abx started. Urine culture growing EColi -continue antibiotics as above (6) Insulin dependent type 2 diabetes mellitus: Code(s): E11.9 - Type 2 diabetes mellitus without complications; Z79.4 - [facility] (current) use of insulin Status: Acute Assessment and Plan: A1c 8.3 The patient's blood glucose was reviewed on 08/09 Glucose reasonably well controlled and mostly <180 (except one of 310). Continue AccuCheks covering with sliding scale. Hypoglycemia protocol available as needed. Continue to monitor Her home insulin regiment on hold (7) Sacral osteomyelitis: Code(s): M46.28 - Osteomyelitis of vertebra, sacral and sacrococcygeal region Status: Acute Assessment and Plan: As above (8) Cellulitis of buttock: Code(s): L03
[2023-08-09] MEDS: VANCOMYCIN 1,250 MG/NS 250 ML 1,250 MG/250 ML BAG 166.67 MG IVPB (20:49)
[2023-08-09 21:07] LABS: Glucose Point of Care 191 mg/dl (65-105)
[2023-08-10] VITALS (16 sets, daily range): BP systolic 118–140; BP diastolic 53–78; PULSE 56–101; RESP 16–20; TEMP 36.4–36.7; O2SAT 94–100
[2023-08-10] MEDS: MEROPENEM 500 MG in SODIUM CHLORIDE 0.9% IV 100 ML 200 ML IVPB ×2 (02:55→16:42)
[2023-08-10] MEDS: HYDROcodone/acetaminophen (*CRX) 5-325 MG TABLET 1 TAB PO ×2 (03:24→18:51)
[2023-08-10] MEDS: CENTRAL LINE FLUSH 10 ML IV PUSH ×4 (06:20→21:21)
[2023-08-10 06:31] LABS: Hematocrit 26.8 % (37.0-47.0); Hemoglobin 8.2 g/dL (12.0-15.0); Mean Corpuscular HGB Conc 30.6 g/dl (32-36); Mean Corpuscular Hemoglobin 27.4 pg (26-34); Mean Corpuscular Volume 89.6 fl (80-100); Mean Platelet Volume 8.9 fl (7.4-10.4); Platelet Count Result 491 k/mm3 (150-375); Red Blood Count 2.99 M/mm3 (4.2-5.4); Red Cell Distribution Width 16.3 % (11.5-14.5); White Blood Count 10.5 K/mm3 (4.5-10.0)
[2023-08-10 06:37] LABS: Alanine Aminotransferase 17 U/L (6-35); Alkaline Phosphatase 49 U/L (38-126); Anion Gap 4 mmol/L (8-16); Aspartate Amino Transferase 22 U/L (14-36); Bilirubin,Total 0.2 mg/dL (0.2-1.3); Blood Urea Nitrogen 51 mg/dL (7-17); Calcium 9.2 mg/dL (8.4-10.2); Carbon Dioxide 26 mmol/L (22-30); Chloride 108 mmol/L (98-107); Estimated CRCL calculation 29 ml/min; Estimated Glomerular Filt Rate 29; Glucose 137 mg/dL (65-110); Magnesium 1.5 mg/dL (1.6-2.3); Phosphorus 3.4 mg/dL (2.5-4.5); Sodium 138 mmol/L (137-145)
[2023-08-10 08:04] LABS: Glucose Point of Care 137 mg/dl (65-105)
[2023-08-10 10:30] LABS: Haptoglobin 289 mg/dL (43-212)
[2023-08-10] MEDS: MAGNESIUM SULF 2 GM/WATER 50ML 2 GM/50 ML BAG IVPB (10:33)
[2023-08-10] MEDS: ASPIRIN 81 MG ENTERIC TABLET PO (10:34)
[2023-08-10] MEDS: ENOXAPARIN 30 MG/0.3 ML SYRINGE SUB-Q (10:34)
[2023-08-10] MEDS: allopurinoL 300 MG TABLET PO (10:34)
[2023-08-10] MEDS: FENOFIBRATE 160 MG TABLET PO (10:34)
[2023-08-10] MEDS: TOLNAFTATE 1% POWDER 45 GM BTL 1 APPLIC TOPICAL ×2 (10:35→21:21)
--- NOTE | 2023-08-10 10:44 | PM.PNGS ---
Progress Note: A&P Assessment and Plan (1) Decubitus ulcer, stage 4 with infection: Code(s): L89.94 - Pressure ulcer of unspecified site, stage 4; L08.9 - Local infection of the skin and subcutaneous tissue, unspecified Status: Acute Assessment and Plan: Clinically stable. Continue IV antibiotics. Wound VAC dressing to be changed today by wound care nurses at the bedside. Continue present management. Subjective Subjective Date/Time Seen: 08/10/23 10:44 Interval history: Patient transferred out of the ICU to the floor. Clinically stable. Wound VAC still in place on sacral decubitus wound. Wound VAC to be changed today. Objective Data Vital Signs Vital Signs: Vital Signs - 24 hr 08/09/23 11:52 08/09/23 12:00 08/09/23 12:00 Temperature 36.8 C Pulse Rate 94 94 94 Respiratory Rate 16 16 Blood Pressure 113/59 L Pulse Oximetry 100 100 Oxygen Delivery Nasal Cannula Oxygen Flow Rate 1 08/09/23 14:00 08/09/23 16:00 08/09/23 16:00 Temperature Pulse Rate 90 72 90 Respiratory Rate 16 Blood Pressure Pulse Oximetry 100 Oxygen Delivery Room Air Oxygen Flow Rate 08/09/23 16:00 08/09/23 17:26 08/09/23 17:00 Temperature 36.8 C Pulse Rate 90 77 Respiratory Rate 18 20 Blood Pressure 113/59 L 124/69 Pulse Oximetry 100 98 Oxygen Delivery Room Air Oxygen Flow Rate 08/09/23 18:00 08/09/23 20:00 08/09/23 20:00 Temperature 36.2 C L Pulse Rate 72 74 Respiratory Rate 16 Blood Pressure 127/71 Pulse Oximetry 99 Oxygen Delivery Room Air Oxygen Flow Rate 08/09/23 23:53 08/09/23 20:00 08/09/23 22:00 Temperature 36.4 C Pulse Rate 74 72 88 Respiratory Rate 16 Blood Pressure 129/62 Pulse Oximetry 100 Oxygen Delivery Oxygen Flow Rate 08/10/23 00:00 08/10/23 04:14 08/10/23 00:00 Temperature 36.4 C L Pulse Rate 83 83 Respiratory Rate 16 Blood Pressure 140/68 Pulse Oximetry 94 Oxygen Delivery Room Air Oxygen Flow Rate 08/10/23 04:00 08/10/23 02:00 08/10/23 04:00 Temperature Pulse Rate 82 83 Respiratory Rate Blood Pressure Pulse Oximetry Oxygen Delivery Room Air Oxygen Flow Rate 08/10/23 05:58 08/10/23 08:00 Temperature 36.6 C Pulse Rate 71 56 L Respiratory Rate 17 Blood Pressure 126/78 Pulse Oximetry 94 Oxygen Delivery Oxygen Flow Rate Intake/Output Intake/Output: Intake & Output 08/07/23 08/08/23 08/09/23 08/10/23 23:59 23:59 23:59 23:59 Intake Total 1940 2330 1720 620 Output Total 1075 1800 1150 900 Balance 865 530 570 -280 Meds/Results Medications: Active Medications Generic Name Dose Route Start Last Admin Trade Name Freq PRN Reason Stop Dose Admin Acetaminophen 650 mg 08/05/23 16:55 08/05/23 21:06 Acetaminophen 325 Mg Tablet PO 650 mg Q4H PRN Administration Mild Pain (1-3) or Fever Hydrocodone Bitart/Acetaminophen 1 tab 08/09/23 07:54 08/10/23 03:24 Hydrocodone/Acetaminophen (*Crx) 5-325 Mg Tablet PO 1 tab Q4H PRN Administration Pain Rated 4-6 Allopurinol 300 mg 08/10/23 09:00 08/10/23 10:34 Allopurinol 300 Mg Tablet PO 300 mg DAILY DAMON Administration Aspirin 81 mg 08/10/23 09:00 08/10/23 10:34 Aspirin 81 Mg Enteric Tablet PO 81 mg DAILY DAMON Administration Dextrose 12.5 gm 08/05/23 10:06 Dextrose 50% 25 Gm/50 Ml Syringe IV PUSH PRN PRN Hypoglycemia Protocol Docusate Sodium 100 mg 08/09/23 17:59 Docusate Sodium 100 Mg Capsule PO DAILY PRN constipation Enoxaparin Sodium 30 mg 08/09/23 11:05 08/10/23 10:34 Enoxaparin 30 Mg/0.3 Ml Syringe SUB-Q 30 mg DAILY DAMON Administration Fenofibrate 160 mg 08/10/23 09:00 08/10/23 10:34 Fenofibrate 160 Mg Tablet PO 160 mg DAILY DAMON Administration Glucagon 1 mg 08/09/23 08:28 Glucagon For Inj 1 Mg Vial IM PRN PRN Hypoglycemia Protocol Dextrose 1,000 mls @ 100 mls
--- NOTE | 2023-08-10 10:50 | P.PNNP_ITS ---
Progress Note: A&P Assessment and Plan (1) MIRIAM (acute kidney injury): Code(s): N17.9 - Acute kidney failure, unspecified Status: Acute Assessment and Plan: * slow improvement noted if not back to baseline * suspect ATN from multifactorial etiology: * hemodynamic instability/hypotension * prerenal factors * infection/sepsis * ongoing YEHUDA-I use prior to admission * evaluation to date: * urine eosinophils negative * urine electrolytes non-prerenal * renal ultrasound w/o obstruction * CPK mildly elevated -- not enough to affect kidney function * follow trend of repeat labs and UOP (2) Stage 3b chronic kidney disease: Code(s): N18.32 - Chronic kidney disease, stage 3b Status: Chronic Assessment and Plan: * baseline creatinine runs 1.1 - 1.6mg/dl (but has been as high as 2.0mg/ld in the past) * present since as far back as 2018 * presumably secondary to hypertension, diabetes, vascular disease and age- related change (3) Septic shock: Code(s): A41.9 - Sepsis, unspecified organism; R65.21 - Severe sepsis with septic shock Status: Acute Assessment and Plan: * resolving * as noted by AMS/lethargy, hypoglycemia, weakness, and hypotension * s/p aggressive IVF resuscitation * was initiated on vasopressor therapy to maintain MAP on evening of admission -- now off * suspected source = UTI + infected decubitus ulcer + cellulitis of buttocks + sacral osteomyelitis * follow culture data * urine culture with E.coli * blood cultures (1/2 bottles) with Staph epidermis * on antibiotics (4) Decubitus ulcer of sacral region: Code(s): L89.159 - Pressure ulcer of sacral region, unspecified stage Status: Acute Assessment and Plan: * complicated by buttock cellulitis and osteomyelitis (as noted by imaging) * already on antibiotic therapy * Surgery following -- s/p debridement (on 08/08/23) * wound vac in place (5) Insulin dependent type 2 diabetes mellitus: Code(s): E11.9 - Type 2 diabetes mellitus without complications; Z79.4 - senior living (current) use of insulin Status: Acute Assessment and Plan: * follow accu-cheks * glycemic control per bank reconciliator/hospitalists Will continue to follow. Subjective Date/time seen: 08/10/23 10:50 Interval history: Follow-up for acute kidney injury/acute renal failure on chronic kidney disease. Transferred out of ICU yesterday; remains hemodynamically stable; renal function continues to improve with adequate urine output; pain control seems satisfactory as well; no other issues/events overnight or earlier this morning. Exam Narrative: General: elderly female in NAD Heart: normal S1 and S2; no rub Lungs: clear to auscultation Abdomen: soft, nontender, nondistended, positive bowel sounds Extremities: no cyanosis or clubbing; trace - 1+ edema Skin: no nodules; wound vac in place Objective Data Vital Signs Vital Signs: Vital Signs Temp Pulse Resp BP Pulse Ox O2 Del Method 08/10/23 10:42 98.1 F 101 H 19 118/53 L 97 08/10/23 08:00 98 F 56 L 17 126/78 94 08/10/23 05:58 71 08/10/23 04:00 83 08/10/23 02:00 82 08/10/23 04:00 Room Air 08/10/23 00:00 Room Air 08/10/23 04:14 97.5 F L 83 16 140/68 94 08/10/23 00:00 83
--- NOTE | 2023-08-10 10:50 | PM.PNNEP ---
Progress Note: A&P Assessment and Plan (1) MIRIAM (acute kidney injury): Code(s): N17.9 - Acute kidney failure, unspecified Status: Acute Assessment and Plan: slow improvement noted if not back to baseline suspect ATN from multifactorial etiology: hemodynamic instability/hypotension prerenal factors infection/sepsis ongoing YEHUDA-I use prior to admission evaluation to date: urine eosinophils negative urine electrolytes non-prerenal renal ultrasound w/o obstruction CPK mildly elevated -- not enough to affect kidney function follow trend of repeat labs and UOP (2) Stage 3b chronic kidney disease: Code(s): N18.32 - Chronic kidney disease, stage 3b Status: Chronic Assessment and Plan: baseline creatinine runs 1.1 - 1.6mg/dl (but has been as high as 2.0mg/ld in the past) present since as far back as 2019 presumably secondary to hypertension, diabetes, vascular disease and age-related change (3) Septic shock: Code(s): A41.9 - Sepsis, unspecified organism; R65.21 - Severe sepsis with septic shock Status: Acute Assessment and Plan: resolving as noted by AMS/lethargy, hypoglycemia, weakness, and hypotension s/p aggressive IVF resuscitation was initiated on vasopressor therapy to maintain MAP on evening of admission -- now off suspected source = UTI + infected decubitus ulcer + cellulitis of buttocks + sacral osteomyelitis follow culture data urine culture with E.coli blood cultures (1/2 bottles) with Staph epidermis on antibiotics (4) Decubitus ulcer of sacral region: Code(s): L89.159 - Pressure ulcer of sacral region, unspecified stage Status: Acute Assessment and Plan: complicated by buttock cellulitis and osteomyelitis (as noted by imaging) already on antibiotic therapy Surgery following -- s/p debridement (on 08/08/23) wound vac in place (5) Insulin dependent type 2 diabetes mellitus: Code(s): E11.9 - Type 2 diabetes mellitus without complications; Z79.4 - nursing home (current) use of insulin Status: Acute Assessment and Plan: follow accu-cheks glycemic control per fast food attendant/hospitalists Will continue to follow. Subjective Date/time seen: 08/10/23 10:50 Interval history: Follow-up for acute kidney injury/acute renal failure on chronic kidney disease. Transferred out of ICU yesterday; remains hemodynamically stable; renal function continues to improve with adequate urine output; pain control seems satisfactory as well; no other issues/events overnight or earlier this morning. Exam Narrative: General: elderly female in NAD Heart: normal S1 and S2; no rub Lungs: clear to auscultation Abdomen: soft, nontender, nondistended, positive bowel sounds Extremities: no cyanosis or clubbing; trace - 1+ edema Skin: no nodules; wound vac in place Objective Data Vital Signs Vital Signs: Vital Signs Temp Pulse Resp BP Pulse Ox O2 Del Method 08/10/23 10:42 98.1 F 101 H 19 118/53 L 97 08/10/23 08:00 98 F 56 L 17 126/78 94 08/10/23 05:58 71 08/10/23 04:00 83 08/10/23 02:00 82 08/10/23 04:00 Room Air 08/10/23 00:00 Room Air 08/10/23 04:14 97.5 F L 83 16 140/68 94 08/10/23 00:00 83 08/09/23 22:00 88 08/09/23 20:00 72 08/09/23 23:53 97.6 F 74 16 129/62 100 08/09/23 20:00 Room Air 08/09/23 20:00 97.2 F L 74 16 127/71 99 08/09/23 18:00 72 08/09/23 17:00 Room Air 08/09/23 17:26 98.3 F 77 20 124/69 98 08/09/23 16:00 90 18 113/59 L 100 08/09/23 16:00 90 16 100 Room Air 08/09/23 16:00 72 Intake/Output Intake/Output: Intake & Output 08/07/23 08/08/23 08/09/23 08/10/23 23:59 23:59 23:59 23:59 Intake Total 1940 2330 1720 860 Output Total 1075 1800 1150 900 Balance 865 530 570 -40 Meds/Results Medications: Active Medication
[2023-08-10 12:04] LABS: Glucose Point of Care 173 mg/dl (65-105)
[2023-08-10] MEDS: INSULIN ASPART (*BKC) 100 UNITS/ML SUB-Q ×2 (16:45→21:21)
[2023-08-10 17:56] LABS: Glucose Point of Care 236 mg/dl (65-105)
--- NOTE | 2023-08-10 18:39 | PM.IMPN ---
Progress Note: A&P Assessment and Plan (1) Shock: Code(s): R57.9 - Shock, unspecified Status: Acute Assessment and Plan: Septic shock secondary to osteomyelitis, UTI, bacteremia and soft tissue and sacral infection Patient was on Levophed which was weaned off She received appropriate amount of IV fluids but now discontinued -08/05 BCx (1of2) Staph Epi. Could be contaminant -08/05 UCx growing E coli sensitive to cephalosporins -08/09 BCx NGTD -patient underwent surgical debridement 08/08 -WBC almost normal -Clindamycin stopped 08/09 -continue meropenem and vancomycin (08/06) (2) Sepsis: Qualifiers: Sepsis acute organ dysfunction status: with acute organ dysfunction Sepsis type: sepsis due to unspecified organism Severe sepsis acute organ dysfunction type: unspecified Severe sepsis shock status: with septic shock Qualified Code(s): A41.9 - Sepsis, unspecified organism; R65.21 - Severe sepsis with septic shock Code(s): A41.9 - Sepsis, unspecified organism Status: Acute Assessment and Plan: As above (3) Acute on chronic kidney failure: Code(s): N17.9 - Acute kidney failure, unspecified; N18.9 - Chronic kidney disease, unspecified Status: Acute Assessment and Plan: Patient has a history of chronic kidney disease with baseline Cr around 1.1-1.7 . She presents with acute on chronic kidney disease with Cr of 4 likely related to hypotension, shock, ATN, UTI, and medications (was on lisinopril at home). -urine lytes did not show prerenal picture, urine eosinophils are negative; Total CK 755 but better on recheck -08/06 renal ultrasound:?Left renal cysts, largest measuring 1.7 cm. -adequately fluid-resuscitated at the time and now fluids stopped - good urine output -metabolic gap acidosis resolved with IV fluids with bicarb -creatinine improving and is 1.7 today -monitor urine output, electrolytes and creatinine -nephrology following and appreciate their input (4) Decubitus ulcer of sacral region: Code(s): L89.159 - Pressure ulcer of sacral region, unspecified stage Status: Acute Assessment and Plan: Sacral decubitus ulcer with cellulitis and osteomyelitis as seen on CT CT scan of the abdomen and pelvis 08/05 showing prominent soft tissue thickening and subcu emphysema on the medial right buttock area extending into the region of the right sacrum and presacral space consistent with cellulitis and possible gangrene. Lower right sacral bone destruction noted consistent with osteomyelitis. Underwent surgical debridement with sharp excisional?scalpel and scissor debridement of subcutaneous tissue, bone, and fascia of sacral decubitus ulcer with placement of wound VAC on 08/08. -continue antibiotics as above -continue Wound vac -PICC line in place for assisted IV abx. (5) Urinary tract infection: Qualifiers: Hematuria presence: without hematuria Urinary tract infection type: site unspecified Qualified Code(s): N39.0 - Urinary tract infection, site not specified Code(s): N39.0 - Urinary tract infection, site not specified Status: Acute Assessment and Plan: UA noted. IV abx started. Urine culture growing EColi -continue antibiotics as above (6) Insulin dependent type 2 diabetes mellitus: Code(s): E11.9 - Type 2 diabetes mellitus without complications; Z79.4 - [facility] (current) use of insulin Status: Acute Assessment and Plan: A1c 8.3 The patient's blood glucose was reviewed on 08/10 Glucose reasonably well controlled Continue AccuCheks covering with sliding scale. Hypoglycemia protocol available as needed. Continue to monitor Resume lantus tonight. (7) Sacral osteomyelitis: Code(s): M46.28 - Osteomyelitis of vertebra, sacral and sacrococcygeal region Status: Acute Assessment and Plan: As above (8) Cellulitis of buttock: Code(s): L03.317 - Cellulitis o
[2023-08-10 20:41] LABS: Glucose Point of Care 244 mg/dl (65-105)
[2023-08-10] MEDS: INSULIN GLARGINE (*BKC) 100 UNITS/ML SUB-Q (21:26)
[2023-08-10] MEDS: MORPHINE SULFATE (*CRX) 2 MG/ML INJ IV PUSH (21:48)
--- NOTE | 2023-08-10 23:39 | PC.NURSE ---
This patient, Shirley Carlson, was transferred to [facility] on 08/10/23 at 2335. Personal belongings sent with patient. Report given to HARDEEP Dickinson. Appropriate documentation sent with patient. Pt's daughter, Denise called and updated with Pt's transfer and new room number.
[2023-08-11] VITALS (7 sets, daily range): BP systolic 116–133; BP diastolic 60–76; PULSE 72–101; RESP 16–18; TEMP 36–36.6; O2SAT 96–99
--- NOTE | 2023-08-11 00:03 | ADMGEN ---
This patient, Shirley Carlson, was admitted to 3 Med Surg Room 320-01 @2332. Patient/family oriented to hospital policies and general routines including ID bracelet, bed and alarms, visiting hours, pain management, procedures, bathroom and other care routines, personal items, smoking policy, room service/diet, and visiting hours. Information on how to activate the Rapid Response Team has been discussed. Patient/Family are encouraged to report perceived risks to care and to ask questions if they do not understand what they are told or what they should do.
[2023-08-11] MEDS: MEROPENEM 500 MG in SODIUM CHLORIDE 0.9% IV 100 ML 200 ML IVPB ×2 (02:34→13:13)
[2023-08-11] MEDS: MORPHINE SULFATE (*CRX) 2 MG/ML INJ IV PUSH (03:09)
[2023-08-11] MEDS: CENTRAL LINE FLUSH 10 ML IV PUSH ×2 (05:09→22:01)
[2023-08-11 06:48] LABS: Hematocrit 28.2 % (37.0-47.0); Hemoglobin 8.3 g/dL (12.0-15.0); Mean Corpuscular HGB Conc 29.4 g/dl (32-36); Mean Corpuscular Hemoglobin 26.4 pg (26-34); Mean Corpuscular Volume 89.8 fl (80-100); Mean Platelet Volume 9.1 fl (7.4-10.4); Platelet Count Result 500 k/mm3 (150-375); Red Blood Count 3.14 M/mm3 (4.2-5.4); Red Cell Distribution Width 16.3 % (11.5-14.5); White Blood Count 11.2 K/mm3 (4.5-10.0)
[2023-08-11 07:04] LABS: Alanine Aminotransferase 17 U/L (6-35); Alkaline Phosphatase 55 U/L (38-126); Anion Gap 5 mmol/L (8-16); Aspartate Amino Transferase 24 U/L (14-36); Bilirubin,Total 0.2 mg/dL (0.2-1.3); Blood Urea Nitrogen 41 mg/dL (7-17); Calcium 9.4 mg/dL (8.4-10.2); Carbon Dioxide 23 mmol/L (22-30); Chloride 110 mmol/L (98-107); Estimated CRCL calculation 30 ml/min; Estimated Glomerular Filt Rate 31; Glucose 145 mg/dL (65-110); Magnesium 1.8 mg/dL (1.6-2.3); Potassium 5.1 mmol/L (3.4-5.0); Sodium 138 mmol/L (137-145)
[2023-08-11 07:08] LABS: Vancomycin Random 25.4 ug/mL (10-20)
[2023-08-11 07:42] LABS: Glucose Point of Care 150 mg/dl (65-105)
[2023-08-11] MEDS: ENOXAPARIN 30 MG/0.3 ML SYRINGE SUB-Q (07:58)
[2023-08-11] MEDS: allopurinoL 300 MG TABLET PO (07:59)
[2023-08-11] MEDS: FENOFIBRATE 160 MG TABLET PO (07:59)
[2023-08-11] MEDS: ASPIRIN 81 MG ENTERIC TABLET PO (07:59)
[2023-08-11] MEDS: TOLNAFTATE 1% POWDER 45 GM BTL 1 APPLIC TOPICAL ×2 (07:59→21:54)
[2023-08-11] MEDS: HYDROcodone/acetaminophen (*CRX) 5-325 MG TABLET 1 TAB PO (08:09)
[2023-08-11 11:26] LABS: Glucose Point of Care 230 mg/dl (65-105)
--- NOTE | 2023-08-11 11:35 | P.PNNP_ITS ---
Progress Note: A&P Assessment and Plan (1) MIRIAM (acute kidney injury): Code(s): N17.9 - Acute kidney failure, unspecified Status: Acute Assessment and Plan: * MIRIAM. * suspect ATN from multifactorial etiology: * hemodynamic instability/hypotension * prerenal factors * infection/sepsis * ongoing YEHUDA-I use prior to admission * evaluation to date: * urine eosinophils negative * urine electrolytes non-prerenal * renal ultrasound w/o obstruction * CPK mildly elevated -- not enough to affect kidney function * creatinine improved. * baseline between 1.1 and 1.6 (2) Stage 3b chronic kidney disease: Code(s): N18.32 - Chronic kidney disease, stage 3b Status: Chronic Assessment and Plan: * baseline creatinine runs 1.1 - 1.6mg/dl (but has been as high as 2.0mg/ld in the past) * present since as far back as 2018 * presumably secondary to hypertension, diabetes, vascular disease and age- related change (3) Septic shock: Code(s): A41.9 - Sepsis, unspecified organism; R65.21 - Severe sepsis with septic shock Status: Acute Assessment and Plan: * resolving * bp is better. * suspected source = UTI + infected decubitus ulcer + cellulitis of buttocks + sacral osteomyelitis * follow culture data * urine culture with E.coli * blood cultures (1/2 bottles) with Staph epidermis * on vanco and meropenem (4) Decubitus ulcer of sacral region: Code(s): L89.159 - Pressure ulcer of sacral region, unspecified stage Status: Acute Assessment and Plan: * complicated by buttock cellulitis and osteomyelitis (as noted by imaging) * already on antibiotic therapy * Surgery following -- s/p debridement (on 08/08/23) * wound vac in place (5) Insulin dependent type 2 diabetes mellitus: Code(s): E11.9 - Type 2 diabetes mellitus without complications; Z79.4 - [facility] (current) use of insulin Status: Acute Assessment and Plan: * follow accu-cheks * glycemic control per stereotyper/hospitalists Subjective Date/time seen: 08/11/23 11:35 Interval history: pt is uncomfortable with her decub pain. not eating very well. Exam Narrative: General: elderly female in NAD Heart: normal S1 and S2; no rub or gallop Lungs: clear to auscultation Abdomen: soft, nontender, nondistended, positive bowel sounds Extremities: trace - 1+ edema Skin: no nodules; wound vac in place. no rash Objective Data Vital Signs Vital Signs: Vital Signs - 24 hr 08/10/23 11:42 08/10/23 16:00 08/10/23 12:00 Temperature 98.1 F 97.6 F Pulse Rate 101 H 91 93 Respiratory Rate 19 16 Blood Pressure 118/53 L 123/69 Pulse Oximetry 97 100 Oxygen Delivery 08/10/23 14:00 08/10/23 16:00 08/10/23 12:00 Temperature Pulse Rate 87 88 Respiratory Rate Blood Pressure Pulse Oximetry Oxygen Delivery Room Air 08/10/23 16:00 08/10/23 18:00 08/10/23 19:34 Temperature 97.7 F Pulse Rate 97 90 Respiratory Rate 20 Blood Pressure 139/65 Pulse Oximetry 96 Oxygen Delivery Room Air 08/10/23 20:00 08/10/23 23:34 08/11/23 00:05 Temperature 97.6 F Pulse
--- NOTE | 2023-08-11 11:35 | PM.PNNEP ---
Progress Note: A&P Assessment and Plan (1) MIRIAM (acute kidney injury): Code(s): N17.9 - Acute kidney failure, unspecified Status: Acute Assessment and Plan: MIRIAM. suspect ATN from multifactorial etiology: hemodynamic instability/hypotension prerenal factors infection/sepsis ongoing YEHUDA-I use prior to admission evaluation to date: urine eosinophils negative urine electrolytes non-prerenal renal ultrasound w/o obstruction CPK mildly elevated -- not enough to affect kidney function creatinine improved. baseline between 1.1 and 1.6 (2) Stage 3b chronic kidney disease: Code(s): N18.32 - Chronic kidney disease, stage 3b Status: Chronic Assessment and Plan: baseline creatinine runs 1.1 - 1.6mg/dl (but has been as high as 2.0mg/ld in the past) present since as far back as 2019 presumably secondary to hypertension, diabetes, vascular disease and age-related change (3) Septic shock: Code(s): A41.9 - Sepsis, unspecified organism; R65.21 - Severe sepsis with septic shock Status: Acute Assessment and Plan: resolving bp is better. suspected source = UTI + infected decubitus ulcer + cellulitis of buttocks + sacral osteomyelitis follow culture data urine culture with E.coli blood cultures (1/2 bottles) with Staph epidermis on vanco and meropenem (4) Decubitus ulcer of sacral region: Code(s): L89.159 - Pressure ulcer of sacral region, unspecified stage Status: Acute Assessment and Plan: complicated by buttock cellulitis and osteomyelitis (as noted by imaging) already on antibiotic therapy Surgery following -- s/p debridement (on 08/08/23) wound vac in place (5) Insulin dependent type 2 diabetes mellitus: Code(s): E11.9 - Type 2 diabetes mellitus without complications; 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 not eating very well. Exam Narrative: General: elderly female in NAD Heart: normal S1 and S2; no rub or gallop Lungs: clear to auscultation Abdomen: soft, nontender, nondistended, positive bowel sounds Extremities: trace - 1+ edema Skin: no nodules; wound vac in place. no rash Objective Data Vital Signs Vital Signs: Vital Signs - 24 hr 08/10/23 11:42 08/10/23 16:00 08/10/23 12:00 Temperature 98.1 F 97.6 F Pulse Rate 101 H 91 93 Respiratory Rate 19 16 Blood Pressure 118/53 L 123/69 Pulse Oximetry 97 100 Oxygen Delivery 08/10/23 14:00 08/10/23 16:00 08/10/23 12:00 Temperature Pulse Rate 87 88 Respiratory Rate Blood Pressure Pulse Oximetry Oxygen Delivery Room Air 08/10/23 16:00 08/10/23 18:00 08/10/23 19:34 Temperature 97.7 F Pulse Rate 97 90 Respiratory Rate 20 Blood Pressure 139/65 Pulse Oximetry 96 Oxygen Delivery Room Air 08/10/23 20:00 08/10/23 23:34 08/11/23 00:05 Temperature 97.6 F Pulse Rate 90 72 72 Respiratory Rate 20 16 16 Blood Pressure 133/69 Pulse Oximetry 96 97 97 Oxygen Delivery Room Air Room Air 08/11/23 03:03 08/11/23 04:40 08/11/23 07:44 Temperature 97.2 F L Pulse Rate 75 85 85 Respiratory Rate 18 18 Blood Pressure 116/72 128/65 Pulse Oximetry 96 96 Oxygen Delivery Room Air 08/11/23 08:00 Temperature 96.8 F L Pulse Rate 101 H Respiratory Rate 18 Blood Pressure 119/76 Pulse Oximetry 97 Oxygen Delivery Intake/Output Intake/Output: Intake & Output 08/08/23 08/09/23 08/10/23 08/11/23 23:59 23:59 23:59 23:59 Intake Total 2330 1720 1250 580 Output Total 1800 1150 2575 1000 Balance 530 570 -1325 -420 Meds/Results Medications: Active Medications Generic Name Dose Route Start Last Admin Trade Name Freq PRN Reason Stop Dose Admin A
[2023-08-11] MEDS: INSULIN ASPART (*BKC) 100 UNITS/ML SUB-Q ×2 (11:38→21:59)
[2023-08-11 16:44] LABS: Glucose Point of Care 192 mg/dl (65-105)
--- NOTE | 2023-08-11 17:16 | PM.IMPN ---
Progress Note: A&P Assessment and Plan (1) Shock: Code(s): R57.9 - Shock, unspecified Status: Acute Assessment and Plan: Septic shock secondary to osteomyelitis, UTI, bacteremia and soft tissue and sacral infection Patient was on Levophed which was weaned off She received appropriate amount of IV fluids but now discontinued -08/05 BCx (1of2) Staph Epi. Could be contaminant -08/05 UCx growing E coli sensitive to cephalosporins -08/09 BCx NGTD -patient underwent surgical debridement 08/08 -WBC up slightly -Clindamycin stopped 08/09 -continue meropenem and vancomycin (08/06) (2) Sepsis: Qualifiers: Sepsis acute organ dysfunction status: with acute organ dysfunction Sepsis type: sepsis due to unspecified organism Severe sepsis acute organ dysfunction type: unspecified Severe sepsis shock status: with septic shock Qualified Code(s): A41.9 - Sepsis, unspecified organism; R65.21 - Severe sepsis with septic shock Code(s): A41.9 - Sepsis, unspecified organism Status: Acute Assessment and Plan: As above (3) Acute on chronic kidney failure: Code(s): N17.9 - Acute kidney failure, unspecified; N18.9 - Chronic kidney disease, unspecified Status: Acute Assessment and Plan: Patient has a history of chronic kidney disease with baseline Cr around 1.1-1.7 . She presents with acute on chronic kidney disease with Cr of 4 likely related to hypotension, shock, ATN, UTI, and medications (was on lisinopril at home). -urine lytes did not show prerenal picture, urine eosinophils are negative; Total CK 755 but better on recheck -08/06 renal ultrasound:?Left renal cysts, largest measuring 1.7 cm. -adequately fluid-resuscitated at the time and now fluids stopped -good urine output -metabolic gap acidosis resolved with IV fluids with bicarb -creatinine improving and is 1.6 today -monitor urine output, electrolytes and creatinine -nephrology following and appreciate their input (4) Decubitus ulcer of sacral region: Code(s): L89.159 - Pressure ulcer of sacral region, unspecified stage Status: Acute Assessment and Plan: Sacral decubitus ulcer with cellulitis and osteomyelitis as seen on CT CT scan of the abdomen and pelvis 08/05 showing prominent soft tissue thickening and subcu emphysema on the medial right buttock area extending into the region of the right sacrum and presacral space consistent with cellulitis and possible gangrene. Lower right sacral bone destruction noted consistent with osteomyelitis. Underwent surgical debridement with sharp excisional?scalpel and scissor debridement of subcutaneous tissue, bone, and fascia of sacral decubitus ulcer with placement of wound VAC on 08/08. -continue antibiotics as above -continue Wound vac -PICC line in place for intermediate IV abx. (5) Urinary tract infection: Qualifiers: Hematuria presence: without hematuria Urinary tract infection type: site unspecified Qualified Code(s): N39.0 - Urinary tract infection, site not specified Code(s): N39.0 - Urinary tract infection, site not specified Status: Acute Assessment and Plan: UA noted. IV abx started. 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 Hypoglycemia protocol available as needed. Continue to monitor Resume lantus tonight. (7) Sacral osteomyelitis: Code(s): M46.28 - Osteomyelitis of vertebra, sacral and sacrococcygeal region Status: Acute Assessment and Plan: As above (8) Cellulitis of buttock: Code(s): L03.317 - Cellulitis of bu
[2023-08-11] MEDS: VANCOMYCIN 1,250 MG/NS 250 ML 1,250 MG/250 ML BAG 166.67 MG IVPB (21:30)
[2023-08-11 21:55] LABS: Glucose Point of Care 274 mg/dl (65-105)
[2023-08-11] MEDS: INSULIN GLARGINE (*BKC) 100 UNITS/ML SUB-Q (21:57)
[2023-08-12 00:16] LABS: Hepatitis B Core Ab Total Nonreactive (Nonreactive)
[2023-08-12] MEDS: MEROPENEM 500 MG in SODIUM CHLORIDE 0.9% IV 100 ML 200 ML IVPB ×2 (02:48→14:22)
[2023-08-12] MEDS: SODIUM CHLORIDE 0.9% IV 100 ML (02:54)
[2023-08-12] MEDS: CENTRAL LINE FLUSH 10 ML IV PUSH ×3 (05:34→21:28)
[2023-08-12] MEDS: CENTRAL LINE FLUSH 20 ML IV PUSH (05:36)
[2023-08-12 06:00] VITALS: BP 122/67; PULSE 92; RESP 20; TEMP 36.4; O2SAT 98
[2023-08-12 06:33] LABS: Hematocrit 26.9 % (37.0-47.0); Hemoglobin 8.2 g/dL (12.0-15.0); Mean Corpuscular HGB Conc 30.5 g/dl (32-36); Mean Corpuscular Volume 88.5 fl (80-100); Mean Platelet Volume 9.6 fl (7.4-10.4); Platelet Count Result 489 k/mm3 (150-375); Red Blood Count 3.04 M/mm3 (4.2-5.4); Red Cell Distribution Width 16.3 % (11.5-14.5); White Blood Count 11.9 K/mm3 (4.5-10.0)
[2023-08-12 06:41] LABS: Alanine Aminotransferase 18 U/L (6-35); Albumin Level 3.1 g/dL (3.5-5.1); Alkaline Phosphatase 60 U/L (38-126); Anion Gap 5 mmol/L (8-16); Aspartate Amino Transferase 28 U/L (14-36); Bilirubin,Total 0.2 mg/dL (0.2-1.3); Blood Urea Nitrogen 41 mg/dL (7-17); Calcium 9.3 mg/dL (8.4-10.2); Carbon Dioxide 22 mmol/L (22-30); Chloride 110 mmol/L (98-107); Estimated CRCL calculation 36 ml/min; Estimated Glomerular Filt Rate 36; Glucose 141 mg/dL (65-110); Magnesium 1.7 mg/dL (1.6-2.3); Phosphorus 3.6 mg/dL (2.5-4.5); Potassium 5.3 mmol/L (3.4-5.0); Sodium 137 mmol/L (137-145)
[2023-08-12 07:59] LABS: Glucose Point of Care 144 mg/dl (65-105)
[2023-08-12 08:00] VITALS: BP 120/72; PULSE 92; PULSE 95; RESP 18; RESP 20; TEMP 36.3; O2SAT 98; O2SAT 99
[2023-08-12] MEDS: ENOXAPARIN 30 MG/0.3 ML SYRINGE SUB-Q (08:07)
[2023-08-12] MEDS: ASPIRIN 81 MG ENTERIC TABLET PO (08:07)
[2023-08-12] MEDS: FENOFIBRATE 160 MG TABLET PO (08:07)
[2023-08-12] MEDS: allopurinoL 300 MG TABLET PO (08:07)
[2023-08-12] MEDS: TOLNAFTATE 1% POWDER 45 GM BTL 1 APPLIC TOPICAL ×2 (08:08→20:17)
[2023-08-12] MEDS: HYDROcodone/acetaminophen (*CRX) 5-325 MG TABLET 1 TAB PO (08:10)
[2023-08-12 11:29] LABS: Glucose Point of Care 263 mg/dl (65-105)
--- NOTE | 2023-08-12 11:48 | P.PNNP_ITS ---
Progress Note: A&P Assessment and Plan (1) MIRIAM (acute kidney injury): Code(s): N17.9 - Acute kidney failure, unspecified Status: Acute Assessment and Plan: * MIRIAM. * suspect ATN from multifactorial etiology: * hemodynamic instability/hypotension * prerenal factors * infection/sepsis * ongoing YEHUDA-I use prior to admission * evaluation to date: * urine eosinophils negative * urine electrolytes non-prerenal * renal ultrasound w/o obstruction * CPK mildly elevated -- not enough to affect kidney function * creatinine down to 1.4. * Her potassium is slightly high at 5.3. * Not on potassium supplements. She was placed on a low-potassium diet by Dr. Yates. * baseline between 1.1 and 1.6 (2) Stage 3b chronic kidney disease: Code(s): N18.32 - Chronic kidney disease, stage 3b Status: Chronic Assessment and Plan: * baseline creatinine runs 1.1 - 1.6mg/dl (but has been as high as 2.0mg/ld in the past) * present since as far back as 2018 * presumably secondary to hypertension, diabetes, vascular disease and age- related change (3) Septic shock: Code(s): A41.9 - Sepsis, unspecified organism; R65.21 - Severe sepsis with septic shock Status: Acute Assessment and Plan: * resolved * suspected source = UTI + infected decubitus ulcer + cellulitis of buttocks + sacral osteomyelitis * follow culture data * urine culture with E.coli * blood cultures (1/2 bottles) with Staph epidermis * on vanco and meropenem (4) Decubitus ulcer of sacral region: Code(s): L89.159 - Pressure ulcer of sacral region, unspecified stage Status: Acute Assessment and Plan: * complicated by buttock cellulitis and osteomyelitis (as noted by imaging) * already on antibiotic therapy * Surgery following -- s/p debridement (on 08/08/23) * wound vac in place (5) Insulin dependent type 2 diabetes mellitus: Code(s): E11.9 - Type 2 diabetes mellitus without complications; Z79.4 - 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 She is comfortable. However she is ?foggy ? not eating very well. Exam Narrative: General: elderly female in NAD Heart: normal S1 and S2; no rub or gallop Lungs: clear bilaterally Abdomen: soft, nontender, nondistended, positive bowel sounds Extremities: trace - 1+ edema Skin: no rash Objective Data Vital Signs Vital Signs: Vital Signs - 24 hr 08/11/23 15:54 08/11/23 21:57 08/11/23 20:00 Temperature 97.5 F L 97.8 F Pulse Rate 75 82 Respiratory Rate 18 18 Blood Pressure 133/70 124/60 Pulse Oximetry 99 99 Oxygen Delivery Room Air 08/12/23 06:00 08/12/23 08:00 Temperature 97.6 F Pulse Rate 92 92 Respiratory Rate 20 20 Blood Pressure 122/67 Pulse Oximetry 98 98 Oxygen Delivery Room Air Intake/Output Intake/Output: Intake & Output 08/09/23 08/10/23 08/11/23 08/12/23 23:59 23:59 23:59 23:59 Intake Total 1720 1250 1020 680 Output Total 1150 2575 2600 1200
--- NOTE | 2023-08-12 11:48 | PM.PNNEP ---
Progress Note: A&P Assessment and Plan (1) MIRIAM (acute kidney injury): Code(s): N17.9 - Acute kidney failure, unspecified Status: Acute Assessment and Plan: MIRAIM. suspect ATN from multifactorial etiology: hemodynamic instability/hypotension prerenal factors infection/sepsis ongoing YEHUDA-I use prior to admission evaluation to date: urine eosinophils negative urine electrolytes non-prerenal renal ultrasound w/o obstruction CPK mildly elevated -- not enough to affect kidney function creatinine down to 1.4. Her potassium is slightly high at 5.3. Not on potassium supplements. She was placed on a low-potassium diet by Dr. Yates. baseline between 1.1 and 1.6 (2) Stage 3b chronic kidney disease: Code(s): N18.32 - Chronic kidney disease, stage 3b Status: Chronic Assessment and Plan: baseline creatinine runs 1.1 - 1.6mg/dl (but has been as high as 2.0mg/ld in the past) present since as far back as 2019 presumably secondary to hypertension, diabetes, vascular disease and age-related change (3) Septic shock: Code(s): A41.9 - Sepsis, unspecified organism; R65.21 - Severe sepsis with septic shock Status: Acute Assessment and Plan: resolved suspected source = UTI + infected decubitus ulcer + cellulitis of buttocks + sacral osteomyelitis follow culture data urine culture with E.coli blood cultures (1/2 bottles) with Staph epidermis on vanco and meropenem (4) Decubitus ulcer of sacral region: Code(s): L89.159 - Pressure ulcer of sacral region, unspecified stage Status: Acute Assessment and Plan: complicated by buttock cellulitis and osteomyelitis (as noted by imaging) already on antibiotic therapy Surgery following -- s/p debridement (on 08/08/23) wound vac in place (5) Insulin dependent type 2 diabetes mellitus: Code(s): E11.9 - Type 2 diabetes mellitus without complications; Z79.4 - shelter (current) use of insulin Status: Acute Assessment and Plan: follow accu-cheks glycemic control per distillery miller/hospitalists Subjective Date/time seen: 08/12/23 11:48 Interval history: pt just received her pain meds. She is comfortable. However she is ?foggy ? not eating very well. Exam Narrative: General: elderly female in NAD Heart: normal S1 and S2; no rub or gallop Lungs: clear bilaterally Abdomen: soft, nontender, nondistended, positive bowel sounds Extremities: trace - 1+ edema Skin: no rash Objective Data Vital Signs Vital Signs: Vital Signs - 24 hr 08/11/23 15:54 08/11/23 21:57 08/11/23 20:00 Temperature 97.5 F L 97.8 F Pulse Rate 75 82 Respiratory Rate 18 18 Blood Pressure 133/70 124/60 Pulse Oximetry 99 99 Oxygen Delivery Room Air 08/12/23 06:00 08/12/23 08:00 Temperature 97.6 F Pulse Rate 92 92 Respiratory Rate 20 20 Blood Pressure 122/67 Pulse Oximetry 98 98 Oxygen Delivery Room Air Intake/Output Intake/Output: Intake & Output 08/09/23 08/10/23 08/11/23 08/12/23 23:59 23:59 23:59 23:59 Intake Total 1720 1250 1020 680 Output Total 1150 2575 2600 1200 Balance 030 -9574 -8045 -847 Meds/Results Medications: Active Medications Generic Name Dose Route Start Last Admin Trade Name Freq PRN Reason Stop Dose Admin Acetaminophen 650 mg 08/05/23 16:55 08/05/23 21:06 Acetaminophen 325 Mg Tablet PO 650 mg Q4H PRN Administration Mild Pain (1-3) or Fever Hydrocodone Bitart/Acetaminophen 1 tab 08/09/23 07:54 08/12/23 08:10 Hydrocodone/Acetaminophen (*Crx) 5-325 Mg Tablet PO 1 tab Q4H PRN Administration Pain Rated 4-6 Allopurinol 300 mg 08/10/23 09:00 08/12/23 08:07 Allopurinol 300 Mg Tablet PO 300 mg DAILY DAMON Administration Aspirin 81 mg 08/10/23 09:00 08/12/23 08:07 Aspirin 81 Mg Enteric Tablet PO 81 mg DAILY DAMON Administration Dextrose 12.5 gm 08/05/23 10:06
[2023-08-12] MEDS: INSULIN ASPART (*BKC) 100 UNITS/ML SUB-Q ×3 (12:22→20:16)
--- NOTE | 2023-08-12 13:48 | PM.IMPN ---
Progress Note: A&P Assessment and Plan (1) Shock: Code(s): R57.9 - Shock, unspecified Status: Acute Assessment and Plan: Septic shock secondary to osteomyelitis, UTI, bacteremia and soft tissue and sacral infection. Patient was on Levophed which was weaned off She received appropriate amount of IV fluids but now discontinued -08/05 BCx (1of2) Staph Epi. Could be contaminant -08/05 UCx growing E coli sensitive to cephalosporins -08/09 BCx NGTD -patient underwent surgical debridement 08/08 -WBC mildly elevated but stable -Clindamycin stopped 08/09 -continue meropenem and vancomycin (08/06) -deescalate abx tomorrow after 7 days (2) Sepsis: Qualifiers: Sepsis acute organ dysfunction status: with acute organ dysfunction Sepsis type: sepsis due to unspecified organism Severe sepsis acute organ dysfunction type: unspecified Severe sepsis shock status: with septic shock Qualified Code(s): A41.9 - Sepsis, unspecified organism; R65.21 - Severe sepsis with septic shock Code(s): A41.9 - Sepsis, unspecified organism Status: Acute Assessment and Plan: As above (3) Acute on chronic kidney failure: Code(s): N17.9 - Acute kidney failure, unspecified; N18.9 - Chronic kidney disease, unspecified Status: Acute Assessment and Plan: Patient has a history of chronic kidney disease with baseline Cr around 1.1-1.7 . She presents with acute on chronic kidney disease with Cr of 4 likely related to hypotension, shock, ATN, UTI, and medications (was on lisinopril at home). -urine lytes did not show prerenal picture, urine eosinophils are negative; Total CK 755 but better on recheck -08/06 renal ultrasound:?Left renal cysts, largest measuring 1.7 cm. -adequately fluid-resuscitated at the time and now fluids stopped -good urine output -metabolic gap acidosis resolved with IV fluids with bicarb -creatinine improving and is 1.4 today -not on diuretics at home -monitor urine output, electrolytes and creatinine -nephrology following and appreciate their input (4) Decubitus ulcer of sacral region: Code(s): L89.159 - Pressure ulcer of sacral region, unspecified stage Status: Acute Assessment and Plan: Sacral decubitus ulcer with cellulitis and osteomyelitis as seen on CT CT scan of the abdomen and pelvis 08/05 showing prominent soft tissue thickening and subcu emphysema on the medial right buttock area extending into the region of the right sacrum and presacral space consistent with cellulitis and possible gangrene. Lower right sacral bone destruction noted consistent with osteomyelitis. Underwent surgical debridement with sharp excisional?scalpel and scissor debridement of subcutaneous tissue, bone, and fascia of sacral decubitus ulcer with placement of wound VAC on 08/08. -continue antibiotics as above -continue Wound vac -PICC line in place if intermediate IV abx needed (5) Urinary tract infection: Qualifiers: Hematuria presence: without hematuria Urinary tract infection type: site unspecified Qualified Code(s): N39.0 - Urinary tract infection, site not specified Code(s): N39.0 - Urinary tract infection, site not specified Status: Acute Assessment and Plan: UA noted. IV abx started. Urine culture growing EColi -continue antibiotics as above (6) Insulin dependent type 2 diabetes mellitus: Code(s): E11.9 - Type 2 diabetes mellitus without complications; Z79.4 - prison (current) use of insulin Status: Acute Assessment and Plan: A1c 8.3 The patient's blood glucose was reviewed on 08/12 Glucose reasonably well controlled Continue AccuCheks covering with sliding scale. Hypoglycemia protocol available as needed. Continue to monitor Advance lantus tonight. (7) Sacral osteomyelitis: Code(s): M46.28 - Osteomyelitis of vertebra, sacral and sacrococcygeal region Status: Acute Assessment and Plan:
[2023-08-12] MEDS: MORPHINE SULFATE (*CRX) 2 MG/ML INJ IV PUSH ×2 (14:11→22:07)
[2023-08-12 15:08] VITALS: BP 119/67; PULSE 97; RESP 18; TEMP 36; O2SAT 99
[2023-08-12 17:05] LABS: Glucose Point of Care 262 mg/dl (65-105)
--- NOTE | 2023-08-12 19:50 | PC.NURSE ---
wound vac leaking air, N.o bid wet to dry until new wound vac dressing applied tomorrow AM by wound RN, per BRITTA Dsouza
[2023-08-12 20:00] VITALS: O2SAT 99
[2023-08-12 20:10] VITALS: BP 122/59; PULSE 79; RESP 16; TEMP 36.6; O2SAT 98
[2023-08-12] MEDS: INSULIN GLARGINE (*BKC) 100 UNITS/ML 8 UNITS SUB-Q (20:17)
[2023-08-12 20:59] LABS: Glucose Point of Care 277 mg/dl (65-105)
[2023-08-13] MEDS: MEROPENEM 500 MG in SODIUM CHLORIDE 0.9% IV 100 ML 200 ML IVPB ×2 (01:38→13:25)
[2023-08-13 04:52] VITALS: BP 122/64; PULSE 86; RESP 16; TEMP 36.4; O2SAT 98
[2023-08-13] MEDS: CENTRAL LINE FLUSH 10 ML IV PUSH ×3 (05:19→21:05)
[2023-08-13 06:19] LABS: Hematocrit 28.2 % (37.0-47.0); Hemoglobin 8.5 g/dL (12.0-15.0); Mean Corpuscular HGB Conc 30.1 g/dl (32-36); Mean Corpuscular Hemoglobin 27.2 pg (26-34); Mean Corpuscular Volume 90.1 fl (80-100); Mean Platelet Volume 9.6 fl (7.4-10.4); Platelet Count Result 447 k/mm3 (150-375); Red Blood Count 3.13 M/mm3 (4.2-5.4); Red Cell Distribution Width 16.6 % (11.5-14.5); White Blood Count 12.4 K/mm3 (4.5-10.0)
--- NOTE | 2023-08-13 06:19 | PC.NURSE ---
blood draw via PIcc line this morning sent to lab for analysis
[2023-08-13 06:33] LABS: Albumin Level 3.2 g/dL (3.5-5.1); Anion Gap 6 mmol/L (8-16); Blood Urea Nitrogen 47 mg/dL (7-17); Calcium 9.5 mg/dL (8.4-10.2); Carbon Dioxide 20 mmol/L (22-30); Chloride 110 mmol/L (98-107); Estimated CRCL calculation 32 ml/min; Estimated Glomerular Filt Rate 33; Glucose 166 mg/dL (65-110); Magnesium 1.6 mg/dL (1.6-2.3); Phosphorus 4.2 mg/dL (2.5-4.5); Potassium 5.6 mmol/L (3.4-5.0); Sodium 136 mmol/L (137-145)
[2023-08-13 07:37] LABS: Glucose Point of Care 166 mg/dl (65-105)
[2023-08-13] MEDS: TOLNAFTATE 1% POWDER 45 GM BTL 1 APPLIC TOPICAL ×2 (09:34→21:06)
[2023-08-13] MEDS: ENOXAPARIN 30 MG/0.3 ML SYRINGE SUB-Q (09:34)
[2023-08-13] MEDS: ASPIRIN 81 MG ENTERIC TABLET PO (09:34)
[2023-08-13] MEDS: FENOFIBRATE 160 MG TABLET PO (09:34)
[2023-08-13] MEDS: allopurinoL 300 MG TABLET PO (09:34)
[2023-08-13 09:58] LABS: Glucose Point of Care 147 mg/dl (65-105)
--- NOTE | 2023-08-13 10:50 | P.PNNP_ITS ---
Progress Note: A&P Assessment and Plan (1) MIRIAM (acute kidney injury): Code(s): N17.9 - Acute kidney failure, unspecified Status: Acute Assessment and Plan: * slow and steady improvement * suspect ATN from multifactorial etiology: * hemodynamic instability/hypotension * prerenal factors * infection/sepsis * ongoing YEHUDA-I use prior to admission * evaluation to date: * urine eosinophils negative * urine electrolytes non-prerenal * renal ultrasound w/o obstruction * CPK mildly elevated -- not enough to affect kidney function * continue to follow trend of repeat labs and UOP (2) Stage 3b chronic kidney disease: Code(s): N18.32 - Chronic kidney disease, stage 3b Status: Chronic Assessment and Plan: * baseline creatinine runs 1.1 - 1.6mg/dl (but has been as high as 2.0mg/ld in the past) * present since as far back as 2019 * presumably secondary to hypertension, diabetes, vascular disease and age- related change (3) Hyperkalemia: Code(s): E87.5 - Hyperkalemia Status: Acute Assessment and Plan: * unclear etiology * not on any K+ supplements * due to wound burden from sacral decubitus ulcer(?) * on low K+ diet * medical management for now (4) Septic shock: Code(s): A41.9 - Sepsis, unspecified organism; R65.21 - Severe sepsis with septic shock Status: Acute Assessment and Plan: * resolved * suspected source = UTI + infected decubitus ulcer + cellulitis of buttocks + sacral osteomyelitis * follow culture data * urine culture with E.coli * blood cultures (1/2 bottles) with Staph epidermis * on antibiotics (5) Decubitus ulcer of sacral region: Code(s): L89.159 - Pressure ulcer of sacral region, unspecified stage Status: Acute Assessment and Plan: * complicated by buttock cellulitis and osteomyelitis (as noted by imaging) * already on antibiotic therapy * Surgery following -- s/p debridement (on 08/08/23) * wound vac in place (6) Insulin dependent type 2 diabetes mellitus: Code(s): E11.9 - Type 2 diabetes mellitus without complications; Z79.4 - 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 Subjective Date/time seen: 08/13/23 10:50 Interval history: Follow-up for acute kidney injury/acute renal failure on chronic kidney disease. Renal function continues to improve as noted by trend of labs although potassium up/elevated by AM labs today; pain control satisfactory but still present around sacral wound; no other issues/events overnight or earlier this morning. Exam Narrative: General: elderly female in NAD Heart: normal S1 and S2; no rub Lungs: clear bilaterally Abdomen: soft, nontender, nondistended, positive bowel sounds Extremities: trace - 1+ edema Skin: no nodules Objective Data Vital Signs Vital Signs: Vital Signs Temp Pulse Resp BP Pulse Ox O2 Del Method 08/13/23 04:52 97.6 F 86 16 122/64 98 08/12/23 20:10 97.8 F 79 16 122/59 L 98 08/12/23 20:00 99 Room Air 08/12/23 15:08 96.8 F L 97 18 119/67 99 Intake/Output Intake/Output: Intake & Output 08/10/23 08/11/23 08/12/23
--- NOTE | 2023-08-13 10:50 | PM.PNNEP ---
Progress Note: A&P Assessment and Plan (1) MIRIAM (acute kidney injury): Code(s): N17.9 - Acute kidney failure, unspecified Status: Acute Assessment and Plan: slow and steady improvement suspect ATN from multifactorial etiology: hemodynamic instability/hypotension prerenal factors infection/sepsis ongoing YEHUDA-I use prior to admission evaluation to date: urine eosinophils negative urine electrolytes non-prerenal renal ultrasound w/o obstruction CPK mildly elevated -- not enough to affect kidney function continue to follow trend of repeat labs and UOP (2) Stage 3b chronic kidney disease: Code(s): N18.32 - Chronic kidney disease, stage 3b Status: Chronic Assessment and Plan: baseline creatinine runs 1.1 - 1.6mg/dl (but has been as high as 2.0mg/ld in the past) present since as far back as 2019 presumably secondary to hypertension, diabetes, vascular disease and age-related change (3) Hyperkalemia: Code(s): E87.5 - Hyperkalemia Status: Acute Assessment and Plan: unclear etiology not on any K+ supplements due to wound burden from sacral decubitus ulcer(?) on low K+ diet medical management for now (4) Septic shock: Code(s): A41.9 - Sepsis, unspecified organism; R65.21 - Severe sepsis with septic shock Status: Acute Assessment and Plan: resolved suspected source = UTI + infected decubitus ulcer + cellulitis of buttocks + sacral osteomyelitis follow culture data urine culture with E.coli blood cultures (1/2 bottles) with Staph epidermis on antibiotics (5) Decubitus ulcer of sacral region: Code(s): L89.159 - Pressure ulcer of sacral region, unspecified stage Status: Acute Assessment and Plan: complicated by buttock cellulitis and osteomyelitis (as noted by imaging) already on antibiotic therapy Surgery following -- s/p debridement (on 08/08/23) wound vac in place (6) Insulin dependent type 2 diabetes mellitus: Code(s): E11.9 - Type 2 diabetes mellitus without complications; Z79.4 - senior care (current) use of insulin Status: Acute Assessment and Plan: follow accu-cheks glycemic control per hospitalists Will continue to follow. Subjective Date/time seen: 08/13/23 10:50 Interval history: Follow-up for acute kidney injury/acute renal failure on chronic kidney disease. Renal function continues to improve as noted by trend of labs although potassium up/elevated by AM labs today; pain control satisfactory but still present around sacral wound; no other issues/events overnight or earlier this morning. Exam Narrative: General: elderly female in NAD Heart: normal S1 and S2; no rub Lungs: clear bilaterally Abdomen: soft, nontender, nondistended, positive bowel sounds Extremities: trace - 1+ edema Skin: no nodules Objective Data Vital Signs Vital Signs: Vital Signs Temp Pulse Resp BP Pulse Ox O2 Del Method 08/13/23 04:52 97.6 F 86 16 122/64 98 08/12/23 20:10 97.8 F 79 16 122/59 L 98 08/12/23 20:00 99 Room Air 08/12/23 15:08 96.8 F L 97 18 119/67 99 Intake/Output Intake/Output: Intake & Output 08/10/23 08/11/23 08/12/23 08/13/23 23:59 23:59 23:59 23:59 Intake Total 1250 1020 1600 100 Output Total 2575 2600 2600 1100 Balance -1325 -1580 -1000 -1000 Meds/Results Medications: Active Medications Generic Name Dose Route Start Last Admin Trade Name Freq PRN Reason Stop Dose Admin Acetaminophen 650 mg 08/05/23 16:55 08/05/23 21:06 Acetaminophen 325 Mg Tablet PO 650 mg Q4H PRN Administration Mild Pain (1-3) or Fever Hydrocodone Bitart/Acetaminophen 1 tab 08/09/23 07:54 08/12/23 08:10 Hydrocodone/Acetaminophen (*Crx) 5-325 Mg Tablet PO 1 tab Q4H PRN Administration Pain Rated 4-6 Allopurinol 300 mg 08/10/23 09:00 08/13/23 09:34 Allopurinol 300 Mg Tablet PO
[2023-08-13 12:03] LABS: Glucose Point of Care 217 mg/dl (65-105)
[2023-08-13] MEDS: INSULIN ASPART (*BKC) 100 UNITS/ML SUB-Q ×3 (12:13→21:01)
[2023-08-13] MEDS: SODIUM ZIRCONIUM CYCLOSILICATE 10 GM POWD.PACK PO ×2 (12:14→17:59)
--- NOTE | 2023-08-13 13:33 | PCNFU ---
Nutrition Follow-Up Complete: Increased protein energy needs related to wound healing as evidenced by stage 4 sacral pressure injury, deep tissue injuries present on admission Goal:Adequate PO intake at least 75% meals and supplements to support wound healing Pt is meeting goal at this time. Pt current nutrition is Diabetic, VELMA BID, Glucerna TID. Nutrition recommendation: Continue with current plan of care Last recorded weight is 86.6 kg. Bowel Motility: +BM 08/12 Labs Reviewed: Hgb: 8.5, HCT:28.2, Alb:3.2, NA:136, K:5.6, BUN:47, Cr:1.5, Glu:217 Meds Noted: novolog, zofran Skin: Stage IV to sacrum DTPI to hip and Juan Manuel heels Additional Notes: pt continues on a diabetic diet, intake good at 75--100% most meals, supplements in place per recommendation. Monitoring intake, wound healing, labs, weights Follow up in 7 days
[2023-08-13 14:00] VITALS: BP 135/62; PULSE 103; RESP 20; TEMP 37.1; O2SAT 98
[2023-08-13 14:44] LABS: Glucose Point of Care 273 mg/dl (65-105)
--- NOTE | 2023-08-13 15:08 | PM.PNGS ---
Progress Note: A&P Assessment and Plan (1) Decubitus ulcer, stage 4 with infection: Code(s): L89.94 - Pressure ulcer of unspecified site, stage 4; L08.9 - Local infection of the skin and subcutaneous tissue, unspecified Status: Acute Assessment and Plan: Wound VAC dressing changed today. Wound is stable. Continue wound VAC therapy with next dressing change on Sunday. Continue IV antibiotics and medical management, IV antibiotics switched to Zosyn today Plan I have discussed the patient's case and plan of care with Dr. Cruz. Subjective Subjective Date/Time Seen: 08/13/23 15:08 Post Op day: 5 (Sharp excisional scalpel and scissor debridement of subcutaneous tissue, bone, and fascia of sacral decubitus ulcer with placement of wound VAC.) Interval history: Wound vac changed by wound care nurses earlier this morning. Per wound care nurses, no acute concerns with the wound. Patient's only complaint at this time is pain at her sacral wound. Exam Narrative: Wound vac dressing dry and intact, working well Objective Data Vital Signs Vital Signs: Vital Signs - 24 hr 08/12/23 20:00 08/12/23 20:10 08/13/23 04:52 Temperature 97.8 F 97.6 F Pulse Rate 79 86 Respiratory Rate 16 16 Blood Pressure 122/59 L 122/64 Pulse Oximetry 99 98 98 Oxygen Delivery Room Air 08/13/23 14:00 Temperature 98.7 F Pulse Rate 103 H Respiratory Rate 20 Blood Pressure 135/62 Pulse Oximetry 98 Oxygen Delivery Intake/Output Intake/Output: Intake & Output 08/10/23 08/11/23 08/12/23 08/13/23 23:59 23:59 23:59 23:59 Intake Total 1250 1020 1600 440 Output Total 2575 2600 2600 1100 Balance -1325 -1580 -1000 -660 Meds/Results Medications: Active Medications Generic Name Dose Route Start Last Admin Trade Name Freq PRN Reason Stop Dose Admin Acetaminophen 650 mg 08/05/23 16:55 08/05/23 21:06 Acetaminophen 325 Mg Tablet PO 650 mg Q4H PRN Administration Mild Pain (1-3) or Fever Hydrocodone Bitart/Acetaminophen 1 tab 08/09/23 07:54 08/12/23 08:10 Hydrocodone/Acetaminophen (*Crx) 5-325 Mg Tablet PO 1 tab Q4H PRN Administration Pain Rated 4-6 Allopurinol 300 mg 08/10/23 09:00 08/13/23 09:34 Allopurinol 300 Mg Tablet PO 300 mg DAILY DAMON Administration Aspirin 81 mg 08/10/23 09:00 08/13/23 09:34 Aspirin 81 Mg Enteric Tablet PO 81 mg DAILY DAMON Administration Dextrose 12.5 gm 08/05/23 10:06 Dextrose 50% 25 Gm/50 Ml Syringe IV PUSH PRN PRN Hypoglycemia Protocol Docusate Sodium 100 mg 08/09/23 17:59 Docusate Sodium 100 Mg Capsule PO DAILY PRN constipation Enoxaparin Sodium 30 mg 08/09/23 11:05 08/13/23 09:34 Enoxaparin 30 Mg/0.3 Ml Syringe SUB-Q 30 mg DAILY DAMON Administration Fenofibrate 160 mg 08/10/23 09:00 08/13/23 09:34 Fenofibrate 160 Mg Tablet PO 160 mg DAILY DAMON Administration Glucagon 1 mg 08/09/23 08:28 Glucagon For Inj 1 Mg Vial IM PRN PRN Hypoglycemia Protocol Dextrose 1,000 mls @ 100 mls/hr 08/05/23 10:06 Dextrose 5% 1,000 Ml IVPB PRN PRN Hypoglycemia Protocol Meropenem 500 mg/ Sodium 100 mls @ 200 mls/hr 08/06/23 14:00 08/13/23 13:55 Chloride IVPB Infused Q12H DAMON Infusion Vancomycin HCl 1,250 mg in 250 mls @ 166.667 mls/hr 08/11/23 20:00 08/11/23 21:30 Vancomycin 1,250 Mg/Ns 250 Ml IVPB 166.67 mls/hr Q48H DAMON Administration Insulin Aspart 3 - 6 units 08/09/23 12:00 08/13/23 12:13 Insulin Aspart (*Bkc) 100 Units/Ml SUB-Q 3 units TIDWM DAMON Administration Protocol Insulin Aspart 1 - 3 units 08/09/23 21:00 08/12/23 20:16 Insulin Aspart (*Bkc) 100 Units/Ml SUB-Q 2 units HS DAMON Administration Protocol Insulin Glargine 8 units 08/12/23 21:00 08/12/23 20:17 Insulin Glargine (*Bkc) 100 Units/Ml SUB-Q 8 units HS DAMON Administration Miconazole Nitrate 1 applic 08/06/23 09:00 09
[2023-08-13] MEDS: HYDROcodone/acetaminophen (*CRX) 5-325 MG TABLET 1 TAB PO ×2 (15:53→21:09)
[2023-08-13 16:00] LABS: Glucose Point of Care 242 mg/dl (65-105)
--- NOTE | 2023-08-13 17:29 | PM.IMPN ---
Progress Note: A&P Assessment and Plan (1) Decubitus ulcer of sacral region: Code(s): L89.159 - Pressure ulcer of sacral region, unspecified stage Status: Acute Assessment and Plan: Sacral decubitus ulcer with cellulitis and osteomyelitis as seen on CT CT scan of the abdomen and pelvis 08/05 showing prominent soft tissue thickening and subcu emphysema on the medial right buttock area extending into the region of the right sacrum and presacral space consistent with cellulitis and possible gangrene. Lower right sacral bone destruction noted consistent with osteomyelitis. Underwent surgical debridement with sharp excisional?scalpel and scissor debridement of subcutaneous tissue, bone, and fascia of sacral decubitus ulcer with placement of wound VAC on 08/08. -continue antibiotics as above -Wound vac dressing changed today; continue Wound vac with next change on Sunday -PICC line in place if care home IV abx needed (2) Shock: Code(s): R57.9 - Shock, unspecified Status: Acute Assessment and Plan: Septic shock secondary to osteomyelitis, UTI, bacteremia and soft tissue and sacral infection. Patient was on Levophed which was weaned off She received appropriate amount of IV fluids but now discontinued -08/05 BCx (1of2) Staph Epi. Could be contaminant -08/05 UCx growing E coli sensitive to cephalosporins -08/09 BCx NGTD -patient underwent surgical debridement 08/08 -WBC mildly elevated but stable -Clindamycin stopped 08/09 -meropenem and vancomycin (08/06) for 7 days -deescalate abx to Zosyn (08/13) (3) Sepsis: Qualifiers: Sepsis acute organ dysfunction status: with acute organ dysfunction Sepsis type: sepsis due to unspecified organism Severe sepsis acute organ dysfunction type: unspecified Severe sepsis shock status: with septic shock Qualified Code(s): A41.9 - Sepsis, unspecified organism; R65.21 - Severe sepsis with septic shock Code(s): A41.9 - Sepsis, unspecified organism Status: Acute Assessment and Plan: As above (4) Acute on chronic kidney failure: Code(s): N17.9 - Acute kidney failure, unspecified; N18.9 - Chronic kidney disease, unspecified Status: Acute Assessment and Plan: Patient has a history of chronic kidney disease with baseline Cr around 1.1-1.7 . She presents with acute on chronic kidney disease with Cr of 4 likely related to hypotension, shock, ATN, UTI, and meds (on lisinopril at home). -urine lytes did not show prerenal picture, urine eosinophils are negative; Total CK 755 but better on recheck -08/06 renal ultrasound:?Left renal cysts, largest measuring 1.7 cm. -adequately fluid-resuscitated at the time and now fluids stopped -good urine output -metabolic gap acidosis resolved with IV fluids with bicarb -creatinine improving and is 1.5 today -not on diuretics at home -monitor urine output, electrolytes and creatinine -nephrology following and appreciate their input (5) Urinary tract infection: Qualifiers: Hematuria presence: without hematuria Urinary tract infection type: site unspecified Qualified Code(s): N39.0 - Urinary tract infection, site not specified Code(s): N39.0 - Urinary tract infection, site not specified Status: Acute Assessment and Plan: UA noted. IV abx started. Urine culture growing EColi -she completed a course of abx -remove Sue when able (6) Insulin dependent type 2 diabetes mellitus: Code(s): E11.9 - Type 2 diabetes mellitus without complications; Z79.4 - [facility] (current) use of insulin Status: Acute Assessment and Plan: A1c 8.3 The patient's blood glucose was reviewed on 08/13 Glucose reasonably well controlled Continue AccuCheks covering with sliding scale. Hypoglycemia protocol available as needed. Continue to monitor (7) Sacral osteomyelitis: Code(s): M46.28 - Osteomyelitis of vertebra, sacral and sacrococcygeal region
[2023-08-13] MEDS: PIPERACILLN/TAZ 3.375GM/NS50ML 3.375 GM/50 ML BAG IVPB ×2 (17:59→23:22)
[2023-08-13 20:44] LABS: Glucose Point of Care 225 mg/dl (65-105)
[2023-08-13 21:00] VITALS: BP 130/60
[2023-08-13] MEDS: INSULIN GLARGINE (*BKC) 100 UNITS/ML 8 UNITS SUB-Q (21:03)
[2023-08-13 23:47] VITALS: PULSE 87; RESP 14; TEMP 36.2; O2SAT 98
[2023-08-14] MEDS: PIPERACILLN/TAZ 3.375GM/NS50ML 3.375 GM/50 ML BAG IVPB ×3 (05:12→18:15)
[2023-08-14] MEDS: HYDROcodone/acetaminophen (*CRX) 5-325 MG TABLET 1 TAB PO ×2 (05:13→09:26)
[2023-08-14] MEDS: CENTRAL LINE FLUSH 10 ML IV PUSH ×3 (05:13→21:28)
[2023-08-14 05:50] VITALS: BP 111/55; PULSE 85; RESP 14; TEMP 36.1; O2SAT 97
[2023-08-14 06:33] LABS: Basophils Absolute Auto 0.1 K/mm3 (0.0-0.1); Basophils Percent Auto 0.6 % (0.2-1.2); Eosinophils Absolute Auto 0.7 K/mm3 (0-0.3); Hematocrit 27.7 % (37.0-47.0); Hemoglobin 8.4 g/dL (12.0-15.0); Immature Granulocyte Absolute 0.11 K/mm3 (0.00-0.031); Immature Granulocyte Percent A 0.9 % (0-0.5); Lymphocytes Percent Auto 14.3 % (18.3-44.2); Mean Corpuscular HGB Conc 30.3 g/dl (32-36); Mean Corpuscular Hemoglobin 27.2 pg (26-34); Mean Corpuscular Volume 89.6 fl (80-100); Mean Platelet Volume 9.4 fl (7.4-10.4); Monocytes Percent Auto 8.7 % (2.6-8.5); Neutrophils Absolute Auto 8.3 K/mm3 (1.3-6.7); Neutrophils Percent Auto 69.5 % (45.5-73.1); Platelet Count Result 452 k/mm3 (150-375); Red Blood Count 3.09 M/mm3 (4.2-5.4); Red Cell Distribution Width 16.7 % (11.5-14.5); White Blood Count 11.9 K/mm3 (4.5-10.0)
[2023-08-14 06:42] LABS: Anion Gap 9 mmol/L (8-16); Blood Urea Nitrogen 57 mg/dL (7-17); Calcium 9.6 mg/dL (8.4-10.2); Carbon Dioxide 19 mmol/L (22-30); Chloride 108 mmol/L (98-107); Estimated CRCL calculation 32 ml/min; Estimated Glomerular Filt Rate 33; Glucose 164 mg/dL (65-110); Potassium 5.4 mmol/L (3.4-5.0); Sodium 136 mmol/L (137-145)
[2023-08-14 08:01] LABS: Glucose Point of Care 163 mg/dl (65-105)
[2023-08-14 08:52] VITALS: O2SAT 98
[2023-08-14] MEDS: FENOFIBRATE 160 MG TABLET PO (09:22)
[2023-08-14] MEDS: allopurinoL 300 MG TABLET PO (09:22)
[2023-08-14] MEDS: ASPIRIN 81 MG ENTERIC TABLET PO (09:23)
[2023-08-14] MEDS: TOLNAFTATE 1% POWDER 45 GM BTL 1 APPLIC TOPICAL ×2 (09:23→21:28)
[2023-08-14] MEDS: ENOXAPARIN 30 MG/0.3 ML SYRINGE SUB-Q (09:28)
[2023-08-14] MEDS: SODIUM ZIRCONIUM CYCLOSILICATE 10 GM POWD.PACK PO ×2 (09:28→19:28)
--- NOTE | 2023-08-14 11:12 | P.PNNP_ITS ---
Progress Note: A&P Assessment and Plan (1) MIRIAM (acute kidney injury): Code(s): N17.9 - Acute kidney failure, unspecified Status: Acute Assessment and Plan: * improvement noted (if not back to baseline) * suspect ATN from multifactorial etiology: * hemodynamic instability/hypotension * prerenal factors * infection/sepsis * ongoing YEHUDA-I use prior to admission * evaluation to date: * urine eosinophils negative * urine electrolytes non-prerenal * renal ultrasound w/o obstruction * CPK mildly elevated -- not enough to affect kidney function * continue to follow trend of repeat labs and UOP (2) Stage 3b chronic kidney disease: Code(s): N18.32 - Chronic kidney disease, stage 3b Status: Chronic Assessment and Plan: * baseline creatinine runs 1.1 - 1.6mg/dl (but has been as high as 2.0mg/ld in the past) * present since as far back as 2019 * presumably secondary to hypertension, diabetes, vascular disease and age- related change (3) Hyperkalemia: Code(s): E87.5 - Hyperkalemia Status: Acute Assessment and Plan: * unclear etiology -- did receive K+ supplements once * due to wound burden from sacral decubitus ulcer(?) * on low K+ diet * medical management for now * if acidosis persists, consider adding sodium bicarb to help with this and K+ (4) Septic shock: Code(s): A41.9 - Sepsis, unspecified organism; R65.21 - Severe sepsis with septic shock Status: Acute Assessment and Plan: * resolved * suspected source = UTI + infected decubitus ulcer + cellulitis of buttocks + sacral osteomyelitis * follow culture data * urine culture with E.coli * blood cultures (1/2 bottles) with Staph epidermis * on antibiotics (5) Decubitus ulcer of sacral region: Code(s): L89.159 - Pressure ulcer of sacral region, unspecified stage Status: Acute Assessment and Plan: * complicated by buttock cellulitis and osteomyelitis (as noted by imaging) * already on antibiotic therapy * Surgery following -- s/p debridement (on 08/08/23) * wound vac in place (6) Insulin dependent type 2 diabetes mellitus: Code(s): E11.9 - Type 2 diabetes mellitus without complications; 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 Subjective Date/time seen: 08/14/23 11:12 Interval history: Follow-up for acute kidney injury/acute renal failure on chronic kidney disease. Renal function stable but potassium still mildly elevated; still with on/off pain in buttocks and sacral decubitus ulcer area but has reasonable control; noted itchiness earlier today; no acute distress voiced. Exam Narrative: General: elderly female in NAD Heart: normal S1 and S2; no rub Lungs: clear bilaterally Abdomen: soft, nontender, nondistended, positive bowel sounds Extremities: trace - 1+ edema Skin: no nodules Objective Data Vital Signs Vital Signs: Vital Signs Temp Pulse Resp BP Pulse Ox O2 Del Method 08/14/23 08:00 Room Air 08/14/23 08:52 98 Room Air 08/14/23 05:50 96.9 F L 85 14 111/55 L 97 08/13/23 23:47 97.2 F L 87 14 98 08/13/23 20:00 Room Air 07/27
--- NOTE | 2023-08-14 11:12 | PM.PNNEP ---
Progress Note: A&P Assessment and Plan (1) MIRIAM (acute kidney injury): Code(s): N17.9 - Acute kidney failure, unspecified Status: Acute Assessment and Plan: improvement noted (if not back to baseline) suspect ATN from multifactorial etiology: hemodynamic instability/hypotension prerenal factors infection/sepsis ongoing YEHUDA-I use prior to admission evaluation to date: urine eosinophils negative urine electrolytes non-prerenal renal ultrasound w/o obstruction CPK mildly elevated -- not enough to affect kidney function continue to follow trend of repeat labs and UOP (2) Stage 3b chronic kidney disease: Code(s): N18.32 - Chronic kidney disease, stage 3b Status: Chronic Assessment and Plan: baseline creatinine runs 1.1 - 1.6mg/dl (but has been as high as 2.0mg/ld in the past) present since as far back as 2019 presumably secondary to hypertension, diabetes, vascular disease and age-related change (3) Hyperkalemia: Code(s): E87.5 - Hyperkalemia Status: Acute Assessment and Plan: unclear etiology -- did receive K+ supplements once due to wound burden from sacral decubitus ulcer(?) on low K+ diet medical management for now if acidosis persists, consider adding sodium bicarb to help with this and K+ (4) Septic shock: Code(s): A41.9 - Sepsis, unspecified organism; R65.21 - Severe sepsis with septic shock Status: Acute Assessment and Plan: resolved suspected source = UTI + infected decubitus ulcer + cellulitis of buttocks + sacral osteomyelitis follow culture data urine culture with E.coli blood cultures (1/2 bottles) with Staph epidermis on antibiotics (5) Decubitus ulcer of sacral region: Code(s): L89.159 - Pressure ulcer of sacral region, unspecified stage Status: Acute Assessment and Plan: complicated by buttock cellulitis and osteomyelitis (as noted by imaging) already on antibiotic therapy Surgery following -- s/p debridement (on 08/08/23) wound vac in place (6) Insulin dependent type 2 diabetes mellitus: Code(s): E11.9 - Type 2 diabetes mellitus without complications; Z79.4 - [facility] (current) use of insulin Status: Acute Assessment and Plan: follow accu-cheks glycemic control per hospitalists Not much else to add -- will continue to follow intermittently. Subjective Date/time seen: 08/14/23 11:12 Interval history: Follow-up for acute kidney injury/acute renal failure on chronic kidney disease. Renal function stable but potassium still mildly elevated; still with on/off pain in buttocks and sacral decubitus ulcer area but has reasonable control; noted itchiness earlier today; no acute distress voiced. Exam Narrative: General: elderly female in NAD Heart: normal S1 and S2; no rub Lungs: clear bilaterally Abdomen: soft, nontender, nondistended, positive bowel sounds Extremities: trace - 1+ edema Skin: no nodules Objective Data Vital Signs Vital Signs: Vital Signs Temp Pulse Resp BP Pulse Ox O2 Del Method 08/14/23 08:00 Room Air 08/14/23 08:52 98 Room Air 08/14/23 05:50 96.9 F L 85 14 111/55 L 97 08/13/23 23:47 97.2 F L 87 14 98 08/13/23 20:00 Room Air 08/13/23 21:00 130/60 08/13/23 14:00 98.7 F 103 H 20 135/62 98 Intake/Output Intake/Output: Intake & Output 08/11/23 08/12/23 08/13/23 08/14/23 23:59 23:59 23:59 23:59 Intake Total 1020 5623 790 5128 Output Total 2600 2600 1650 1200 Balance -1580 -1000 -870 -160 Meds/Results Medications: Active Medications Generic Name Dose Route Start Last Admin Trade Name Freq PRN Reason Stop Dose Admin Acetaminophen 650 mg 08/05/23 16:55 08/05/23 21:06 Acetaminophen 325 Mg Tablet PO 650 mg Q4H PRN Administration Mild Pain (1-3) or Fever Hydrocodone Bitart/Acetaminophen 1 tab 08/09/23 07:54 09
[2023-08-14 11:31] LABS: Glucose Point of Care 309 mg/dl (65-105)
[2023-08-14] MEDS: MORPHINE SULFATE (*CRX) 2 MG/ML INJ IV PUSH (12:47)
[2023-08-14] MEDS: hydrOXYzine HCL 10 MG TABLET PO (12:48)
--- NOTE | 2023-08-14 13:06 | PM.IMPN ---
Progress Note: A&P Assessment and Plan (1) Decubitus ulcer of sacral region: Code(s): L89.159 - Pressure ulcer of sacral region, unspecified stage Status: Acute Assessment and Plan: Sacral decubitus ulcer with cellulitis and osteomyelitis as seen on CT CT scan of the abdomen and pelvis 08/05 showing prominent soft tissue thickening and subcu emphysema on the medial right buttock area extending into the region of the right sacrum and presacral space consistent with cellulitis and possible gangrene. Lower right sacral bone destruction noted consistent with osteomyelitis. Underwent surgical debridement with sharp excisional?scalpel and scissor debridement of subcutaneous tissue, bone, and fascia of sacral decubitus ulcer with placement of wound VAC on 08/08. 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 Patient was on Levophed which was weaned off She received appropriate amount of IV fluids but now discontinued -08/05 BCx (1of2) Staph Epi. Could be contaminant -08/05 UCx growing E coli sensitive to cephalosporins -08/09 BCx NGTD -patient underwent surgical debridement 08/08 -WBC mildly elevated but stable -Clindamycin stopped 08/09 -WBC 10-12 range; no fevers -meropenem and vancomycin (08/06) for 7 days -deescalate abx to Zosyn (08/13). Will need 6 weeks of treatment starting from last debridement. (3) Sepsis: Qualifiers: Sepsis acute organ dysfunction status: with acute organ dysfunction Sepsis type: sepsis due to unspecified organism Severe sepsis acute organ dysfunction type: unspecified Severe sepsis shock status: with septic shock Qualified Code(s): A41.9 - Sepsis, unspecified organism; R65.21 - Severe sepsis with septic shock Code(s): A41.9 - Sepsis, unspecified organism Status: Acute Assessment and Plan: As above (4) Acute on chronic kidney failure: Code(s): N17.9 - Acute kidney failure, unspecified; N18.9 - Chronic kidney disease, unspecified Status: Acute Assessment and Plan: Patient has a history of chronic kidney disease with baseline Cr around 1.1-1.7 . She presents with acute on chronic kidney disease with Cr of 4 likely related to hypotension, shock, ATN, UTI, and meds (on lisinopril at home). -urine lytes did not show prerenal picture, urine eosinophils are negative; Total CK 755 but better on recheck -08/06 renal ultrasound:?Left renal cysts, largest measuring 1.7 cm. -adequately fluid-resuscitated at the time and now fluids stopped -good urine output -metabolic gap acidosis resolved with IV fluids with bicarb -creatinine stable at 1.5 today -not on diuretics at home -monitor urine output, electrolytes and creatinine -nephrology following and appreciate their input (5) Urinary tract infection: Qualifiers: Hematuria presence: without hematuria Urinary tract infection type: site unspecified Qualified Code(s): N39.0 - Urinary tract infection, site not specified Code(s): N39.0 - Urinary tract infection, site not specified Status: Acute Assessment and Plan: UA noted. IV abx started. 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 Continue AccuCheks covering with sliding scale. Hypoglycemia protocol available as needed. Continue to monitor but may need meal t
[2023-08-14] MEDS: INSULIN ASPART (*BKC) 100 UNITS/ML SUB-Q ×3 (13:14→21:25)
[2023-08-14 14:00] VITALS: BP 100/57; PULSE 106; RESP 14; TEMP 36.6; O2SAT 97
[2023-08-14 17:19] LABS: Glucose Point of Care 235 mg/dl (65-105)
[2023-08-14 20:00] VITALS: PULSE 106; RESP 14; O2SAT 97
[2023-08-14 20:42] LABS: Glucose Point of Care 298 mg/dl (65-105)
[2023-08-14] MEDS: INSULIN GLARGINE (*BKC) 100 UNITS/ML 8 UNITS SUB-Q (21:27)
[2023-08-14 23:35] VITALS: BP 107/54; PULSE 81; RESP 14; TEMP 36.9; O2SAT 100
[2023-08-15] MEDS: PIPERACILLN/TAZ 3.375GM/NS50ML 3.375 GM/50 ML BAG IVPB ×5 (00:30→23:17)
[2023-08-15] MEDS: HYDROcodone/acetaminophen (*CRX) 5-325 MG TABLET 1 TAB PO ×2 (02:30→08:24)
[2023-08-15 05:21] LABS: Basophils Absolute Auto 0.1 K/mm3 (0.0-0.1); Basophils Percent Auto 0.7 % (0.2-1.2); Eosinophils Absolute Auto 0.7 K/mm3 (0-0.3); Eosinophils Percent Auto 5.9 % (0-4.4); Hematocrit 24.4 % (37.0-47.0); Hemoglobin 7.3 g/dL (12.0-15.0); Immature Granulocyte Absolute 0.08 K/mm3 (0.00-0.031); Immature Granulocyte Percent A 0.7 % (0-0.5); Lymphocytes Absolute Auto 1.79 K/mm3 (0.9-3.2); Lymphocytes Percent Auto 15.7 % (18.3-44.2); Mean Corpuscular HGB Conc 29.9 g/dl (32-36); Mean Corpuscular Hemoglobin 26.8 pg (26-34); Mean Corpuscular Volume 89.7 fl (80-100); Mean Platelet Volume 9.8 fl (7.4-10.4); Monocytes Absolute Auto 1.1 K/mm3 (0.1-0.6); Monocytes Percent Auto 9.4 % (2.6-8.5); Neutrophils Absolute Auto 7.7 K/mm3 (1.3-6.7); Neutrophils Percent Auto 67.6 % (45.5-73.1); Platelet Count Result 390 k/mm3 (150-375); Red Blood Count 2.72 M/mm3 (4.2-5.4); Red Cell Distribution Width 16.7 % (11.5-14.5); White Blood Count 11.4 K/mm3 (4.5-10.0)
[2023-08-15 05:30] LABS: Anion Gap 7 mmol/L (8-16); Blood Urea Nitrogen 64 mg/dL (7-17); Calcium 9.2 mg/dL (8.4-10.2); Carbon Dioxide 21 mmol/L (22-30); Chloride 109 mmol/L (98-107); Estimated CRCL calculation 26 ml/min; Estimated Glomerular Filt Rate 26; Glucose 149 mg/dL (65-110); Magnesium 1.7 mg/dL (1.6-2.3); Phosphorus 5.5 mg/dL (2.5-4.5); Potassium 4.7 mmol/L (3.4-5.0); Sodium 137 mmol/L (137-145)
[2023-08-15] MEDS: CENTRAL LINE FLUSH 10 ML IV PUSH ×3 (05:30→22:31)
[2023-08-15 05:44] VITALS: BP 106/43; PULSE 73; RESP 13; TEMP 36.3; O2SAT 98
[2023-08-15 05:55] LABS: Cortisol Random 8.81 ug/dL
[2023-08-15 06:01] LABS: Anisocytosis 1+ (NORMAL); Basophilic Stippling 1+ (NORMAL); Platelet Estimate Adequate (Adequate); Schistocytes None Seen (NORMAL)
[2023-08-15 08:10] LABS: Glucose Point of Care 117 mg/dl (65-105)
[2023-08-15] MEDS: FENOFIBRATE 160 MG TABLET PO (08:24)
[2023-08-15] MEDS: allopurinoL 300 MG TABLET PO (08:25)
[2023-08-15] MEDS: TOLNAFTATE 1% POWDER 45 GM BTL 1 APPLIC TOPICAL ×2 (08:26→20:52)
--- NOTE | 2023-08-15 08:27 | PM.IMPN ---
Progress Note: A&P Assessment and Plan (1) Decubitus ulcer of sacral region: Code(s): L89.159 - Pressure ulcer of sacral region, unspecified stage Status: Acute Assessment and Plan: Sacral decubitus ulcer with cellulitis and osteomyelitis as seen on CT CT scan of the abdomen and pelvis 08/05 showing prominent soft tissue thickening and subcu emphysema on the medial right buttock area extending into the region of the right sacrum and presacral space consistent with cellulitis and possible gangrene. Lower right sacral bone destruction noted consistent with osteomyelitis. Underwent surgical debridement with sharp excisional?scalpel and scissor debridement of subcutaneous tissue, bone, and fascia of sacral decubitus ulcer with placement of wound VAC on 08/08. 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 Patient was on Levophed which was weaned off She received appropriate amount of IV fluids but now discontinued -08/05 BCx (1of2) Staph Epi. Could be contaminant -08/05 UCx growing E coli sensitive to cephalosporins -08/09 BCx NGTD -patient underwent surgical debridement 08/08 -WBC mildly elevated but stable -Clindamycin stopped 08/09 -WBC 10-12 range; no fevers -meropenem and vancomycin (08/06) for 7 days -deescalate abx to Zosyn (08/13). Will need 6 weeks of treatment starting from last debridement. (3) Sepsis: Qualifiers: Sepsis acute organ dysfunction status: with acute organ dysfunction Sepsis type: sepsis due to unspecified organism Severe sepsis acute organ dysfunction type: unspecified Severe sepsis shock status: with septic shock Qualified Code(s): A41.9 - Sepsis, unspecified organism; R65.21 - Severe sepsis with septic shock Code(s): A41.9 - Sepsis, unspecified organism Status: Acute Assessment and Plan: As above (4) Acute on chronic kidney failure: Code(s): N17.9 - Acute kidney failure, unspecified; N18.9 - Chronic kidney disease, unspecified Status: Acute Assessment and Plan: Patient has a history of chronic kidney disease with baseline Cr around 1.1-1.7 . She presents with acute on chronic kidney disease with Cr of 4 likely related to hypotension, shock, ATN, UTI, and meds (on lisinopril at home). -urine lytes did not show prerenal picture, urine eosinophils are negative; Total CK 755 but better on recheck -08/06 renal ultrasound:?Left renal cysts, largest measuring 1.7 cm. -adequately fluid-resuscitated at the time and now fluids stopped -good urine output -metabolic gap acidosis resolved with IV fluids with bicarb -creatinine stable at 1.5 today -not on diuretics at home -monitor urine output, electrolytes and creatinine -nephrology following and appreciate their input (5) Urinary tract infection: Qualifiers: Hematuria presence: without hematuria Urinary tract infection type: site unspecified Qualified Code(s): N39.0 - Urinary tract infection, site not specified Code(s): N39.0 - Urinary tract infection, site not specified Status: Acute Assessment and Plan: UA noted. IV abx started. 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 Continue AccuCheks covering with sliding scale. Hypoglycemia protocol available as needed. Continue to monitor but may need meal t
[2023-08-15] MEDS: ASPIRIN 81 MG ENTERIC TABLET PO (08:29)
[2023-08-15] MEDS: ENOXAPARIN 30 MG/0.3 ML SYRINGE SUB-Q (08:29)
[2023-08-15] MEDS: ALTEPLASE 2 MG VIAL (CATHFLO) IV PUSH ×2 (09:32)
--- NOTE | 2023-08-15 10:09 | PM.PNGS ---
Progress Note: A&P Assessment and Plan (1) Decubitus ulcer, stage 4 with infection: Code(s): L89.94 - Pressure ulcer of unspecified site, stage 4; L08.9 - Local infection of the skin and subcutaneous tissue, unspecified Status: Acute Assessment and Plan: Wound continues to be clean and responding to the wound VAC dressing changes. We will continue this management for now with dressing changes with wound VAC 3 times a week. Continue management of sepsis as per primary team. Possible plan on having patient follow-up in the [facility] after discharge. Subjective Subjective Date/Time Seen: 08/15/23 10:09 Interval history: Patient without acute clinical changes. Wound VAC on sacral decubitus wound stage IV which by the wound care nurse today. Pictures are documented in the chart for today. Wound is 90% clean with granulation tissue and less than 10% fibrinous exudate no necrotic skin although it is somewhat macerated wound edges. Exam Skin: Other: Sacral decubitus wound was examined with wound VAC out. The wound is starting to granulate at the base. No fecal material noted within the wound bed. Small amount of fibrin is exudate noted but no necrotic tissue that needs to be debrided. No purulent drainage. Objective Data Vital Signs Vital Signs: Vital Signs - 24 hr 08/14/23 14:00 08/14/23 20:00 08/14/23 23:35 Temperature 36.6 C 36.9 C Pulse Rate 106 H 106 H 81 Respiratory Rate 14 14 14 Blood Pressure 100/57 L 107/54 L Pulse Oximetry 97 97 100 Oxygen Delivery Room Air 08/15/23 05:44 08/15/23 08:00 Temperature 36.3 C L Pulse Rate 73 Respiratory Rate 13 Blood Pressure 106/43 L Pulse Oximetry 98 Oxygen Delivery Room Air Intake/Output Intake/Output: Intake & Output 08/12/23 08/13/23 08/14/23 08/15/23 23:59 23:59 23:59 23:59 Intake Total 9945 428 6594 1090 Output Total 2600 1650 1600 950 Balance -1000 -870 -340 140 Meds/Results Medications: Active Medications Generic Name Dose Route Start Last Admin Trade Name Freq PRN Reason Stop Dose Admin Acetaminophen 650 mg 08/05/23 16:55 08/05/23 21:06 Acetaminophen 325 Mg Tablet PO 650 mg Q4H PRN Administration Mild Pain (1-3) or Fever Hydrocodone Bitart/Acetaminophen 1 tab 08/09/23 07:54 08/15/23 08:24 Hydrocodone/Acetaminophen (*Crx) 5-325 Mg Tablet PO 1 tab Q4H PRN Administration Pain Rated 4-6 Allopurinol 300 mg 08/10/23 09:00 08/15/23 08:25 Allopurinol 300 Mg Tablet PO 300 mg DAILY DAMON Administration Alteplase, Recombinant 2 mg 08/15/23 09:15 08/15/23 09:32 Alteplase 2 Mg Vial (Cathflo) IV PUSH 2 mg ONCE PRN Administration Line Occlusion Alteplase, Recombinant 2 mg 08/15/23 09:25 08/15/23 09:32 Alteplase 2 Mg Vial (Cathflo) IV PUSH 2 mg ONCE PRN Administration Line Occlusion Aspirin 81 mg 08/10/23 09:00 08/15/23 08:29 Aspirin 81 Mg Enteric Tablet PO 81 mg DAILY DAMON Administration Dextrose 12.5 gm 08/05/23 10:06 Dextrose 50% 25 Gm/50 Ml Syringe IV PUSH PRN PRN Hypoglycemia Protocol Docusate Sodium 100 mg 08/09/23 17:59 Docusate Sodium 100 Mg Capsule PO DAILY PRN constipation Enoxaparin Sodium 30 mg 08/09/23 11:05 08/15/23 08:29 Enoxaparin 30 Mg/0.3 Ml Syringe SUB-Q 30 mg DAILY DAMON Administration Fenofibrate 160 mg 08/10/23 09:00 08/15/23 08:24 Fenofibrate 160 Mg Tablet PO 160 mg DAILY DAMON Administration Glucagon 1 mg 08/09/23 08:28 Glucagon For Inj 1 Mg Vial IM PRN PRN Hypoglycemia Protocol Hydroxyzine HCl 10 mg 08/14/23 12:21 08/14/23 12:48 Hydroxyzine Hcl 10 Mg Tablet PO 10 mg Q6H PRN Administration Itching Dextrose 1,000 mls @ 100 mls/hr 08/05/23 10:06 Dextrose 5% 1,000 Ml IVPB PRN PRN Hypoglycemia Protocol Piperacillin/Tazobactam/Dextrose 3.375 gm in 50 mls @ 100 mls/hr 08/13/23 18:00 07/28
--- NOTE | 2023-08-15 10:17 | PM.PNGS ---
Progress Note: A&P Assessment and Plan (1) Decubitus ulcer, stage 4 with infection: Code(s): L89.94 - Pressure ulcer of unspecified site, stage 4; L08.9 - Local infection of the skin and subcutaneous tissue, unspecified Status: Acute Subjective Subjective Date/Time Seen: 08/15/23 09:17 Patient reports: afebrile Interval history: Patient reports generalized pruritus. She has some pain at her sacral wound with dressing changes but not currently while at rest. Patient seen with wound care nurses this morning for wound VAC dressing change. Exam Narrative: Wound VAC dressing and packing removed. Large sacral wound measuring 4 x 9 x 4.5 cm with tunneling in the 3-5 o'clock position of at least 15 cm which is the depth of the Q-tip that does not reach the base of the tunnel. Bone is still exposed in the base of the wound. No purulent drainage or foul odor, no fecal material in wound. There is minimal yellow/white fibrinous material on the left lateral wound, but majority of the wound has pink granulating tissue. No necrotic tissue in need of debridement. The surrounding skin has some areas of maceration and a small dark purple area to the right of the wound that is non blanchable and overlies the area of tunneling. Objective Data Vital Signs Vital Signs: Vital Signs - 24 hr 08/14/23 14:00 08/14/23 20:00 08/14/23 23:35 Temperature 97.9 F 98.4 F Pulse Rate 106 H 106 H 81 Respiratory Rate 14 14 14 Blood Pressure 100/57 L 107/54 L Pulse Oximetry 97 97 100 Oxygen Delivery Room Air 08/15/23 05:44 08/15/23 08:00 Temperature 97.3 F L Pulse Rate 73 Respiratory Rate 13 Blood Pressure 106/43 L Pulse Oximetry 98 Oxygen Delivery Room Air Intake/Output Intake/Output: Intake & Output 08/12/23 08/13/23 08/14/23 08/15/23 23:59 23:59 23:59 23:59 Intake Total 0558 889 1149 1090 Output Total 2600 1650 1600 950 Balance -1000 -870 -340 140 Meds/Results Medications: Active Medications Generic Name Dose Route Start Last Admin Trade Name Freq PRN Reason Stop Dose Admin Acetaminophen 650 mg 08/05/23 16:55 08/05/23 21:06 Acetaminophen 325 Mg Tablet PO 650 mg Q4H PRN Administration Mild Pain (1-3) or Fever Hydrocodone Bitart/Acetaminophen 1 tab 08/09/23 07:54 08/15/23 08:24 Hydrocodone/Acetaminophen (*Crx) 5-325 Mg Tablet PO 1 tab Q4H PRN Administration Pain Rated 4-6 Allopurinol 300 mg 08/10/23 09:00 08/15/23 08:25 Allopurinol 300 Mg Tablet PO 300 mg DAILY DAMON Administration Alteplase, Recombinant 2 mg 08/15/23 09:15 08/15/23 09:32 Alteplase 2 Mg Vial (Cathflo) IV PUSH 2 mg ONCE PRN Administration Line Occlusion Alteplase, Recombinant 2 mg 08/15/23 09:25 08/15/23 09:32 Alteplase 2 Mg Vial (Cathflo) IV PUSH 2 mg ONCE PRN Administration Line Occlusion Aspirin 81 mg 08/10/23 09:00 08/15/23 08:29 Aspirin 81 Mg Enteric Tablet PO 81 mg DAILY DAMON Administration Dextrose 12.5 gm 08/05/23 10:06 Dextrose 50% 25 Gm/50 Ml Syringe IV PUSH PRN PRN Hypoglycemia Protocol Docusate Sodium 100 mg 08/09/23 17:59 Docusate Sodium 100 Mg Capsule PO DAILY PRN constipation Enoxaparin Sodium 30 mg 08/09/23 11:05 08/15/23 08:29 Enoxaparin 30 Mg/0.3 Ml Syringe SUB-Q 30 mg DAILY DAMON Administration Fenofibrate 160 mg 08/10/23 09:00 08/15/23 08:24 Fenofibrate 160 Mg Tablet PO 160 mg DAILY DAMON Administration Glucagon 1 mg 08/09/23 08:28 Glucagon For Inj 1 Mg Vial IM PRN PRN Hypoglycemia Protocol Hydroxyzine HCl 10 mg 08/14/23 12:21 08/14/23 12:48 Hydroxyzine Hcl 10 Mg Tablet PO 10 mg Q6H PRN Administration Itching Dextrose 1,000 mls @ 100 mls/hr 08/05/23 10:06 Dextrose 5% 1,000 Ml IVPB PRN PRN Hypoglycemia Protocol Piperacillin/Tazobactam/Dextrose 3.375 gm in 50 mls @ 100 mls/hr 08/13/23 18:00 08/15/23 05:55 Zo
[2023-08-15 11:35] LABS: Glucose Point of Care 202 mg/dl (65-105)
[2023-08-15] MEDS: INSULIN ASPART (*BKC) 100 UNITS/ML SUB-Q ×2 (11:58→22:28)
[2023-08-15] MEDS: oxyCODONE/ACETAMINOPHEN (*CRX) 5-325 MG TABLET 1 TABLET PO ×3 (13:33→22:24)
[2023-08-15 15:00] VITALS: BP 109/54; PULSE 95; RESP 16; TEMP 36.6; O2SAT 100
[2023-08-15 16:42] LABS: Glucose Point of Care 156 mg/dl (65-105)
[2023-08-15 20:00] VITALS: PULSE 95; RESP 16; O2SAT 100
[2023-08-15 21:40] LABS: Glucose Point of Care 202 mg/dl (65-105)
[2023-08-15 21:47] VITALS: BP 121/55; PULSE 85; RESP 18; TEMP 36.6; O2SAT 96
[2023-08-15] MEDS: INSULIN GLARGINE (*BKC) 100 UNITS/ML 8 UNITS SUB-Q (22:30)
[2023-08-15] MEDS: hydrOXYzine HCL 10 MG TABLET PO (22:47)
[2023-08-16] MEDS: oxyCODONE/ACETAMINOPHEN (*CRX) 5-325 MG TABLET 1 TABLET PO ×5 (01:52→21:32)
[2023-08-16 05:11] LABS: Basophils Absolute Auto 0.1 K/mm3 (0.0-0.1); Basophils Percent Auto 0.7 % (0.2-1.2); Eosinophils Absolute Auto 0.8 K/mm3 (0-0.3); Eosinophils Percent Auto 6.5 % (0-4.4); Hemoglobin 7.8 g/dL (12.0-15.0); Immature Granulocyte Absolute 0.07 K/mm3 (0.00-0.031); Immature Granulocyte Percent A 0.6 % (0-0.5); Lymphocytes Absolute Auto 2.11 K/mm3 (0.9-3.2); Lymphocytes Percent Auto 18.1 % (18.3-44.2); Mean Corpuscular Hemoglobin 26.9 pg (26-34); Mean Corpuscular Volume 89.7 fl (80-100); Mean Platelet Volume 9.5 fl (7.4-10.4); Monocytes Percent Auto 8.8 % (2.6-8.5); Neutrophils Absolute Auto 7.6 K/mm3 (1.3-6.7); Neutrophils Percent Auto 65.3 % (45.5-73.1); Platelet Count Result 497 k/mm3 (150-375); White Blood Count 11.6 K/mm3 (4.5-10.0)
[2023-08-16] MEDS: CENTRAL LINE FLUSH 10 ML IV PUSH ×3 (05:21→21:33)
[2023-08-16] MEDS: PIPERACILLN/TAZ 3.375GM/NS50ML 3.375 GM/50 ML BAG IVPB ×2 (05:21→12:02)
[2023-08-16 05:28] LABS: Alanine Aminotransferase 19 U/L (6-35); Albumin Level 3.2 g/dL (3.5-5.1); Alkaline Phosphatase 52 U/L (38-126); Anion Gap 8 mmol/L (8-16); Aspartate Amino Transferase 26 U/L (14-36); Bilirubin,Total 0.3 mg/dL (0.2-1.3); Blood Urea Nitrogen 66 mg/dL (7-17); Calcium 9.4 mg/dL (8.4-10.2); Carbon Dioxide 21 mmol/L (22-30); Chloride 110 mmol/L (98-107); Estimated CRCL calculation 21 ml/min; Estimated Glomerular Filt Rate 20; Glucose 135 mg/dL (65-110); Sodium 139 mmol/L (137-145)
[2023-08-16] MEDS: hydrOXYzine HCL 10 MG TABLET PO (05:41)
[2023-08-16 06:00] VITALS: BP 140/66; PULSE 80; RESP 18; TEMP 36.5; O2SAT 99
[2023-08-16] MEDS: SODIUM CHLORIDE 0.9% IV 1,000 ML 75 ML IV CONT (07:51)
[2023-08-16 08:00] VITALS: BP 83/66; PULSE 97; RESP 16; TEMP 36.4; O2SAT 100
[2023-08-16 08:17] LABS: Glucose Point of Care 109 mg/dl (65-105)
[2023-08-16] MEDS: FENOFIBRATE 160 MG TABLET PO (08:44)
[2023-08-16] MEDS: allopurinoL 300 MG TABLET PO (08:44)
[2023-08-16] MEDS: ASPIRIN 81 MG ENTERIC TABLET PO (08:44)
[2023-08-16] MEDS: ENOXAPARIN 30 MG/0.3 ML SYRINGE SUB-Q (08:45)
[2023-08-16] MEDS: TOLNAFTATE 1% POWDER 45 GM BTL 1 APPLIC TOPICAL ×2 (08:45→21:32)
--- NOTE | 2023-08-16 11:19 | PM.PNGS ---
Progress Note: A&P Assessment and Plan (1) Decubitus ulcer, stage 4 with infection: Code(s): L89.94 - Pressure ulcer of unspecified site, stage 4; L08.9 - Local infection of the skin and subcutaneous tissue, unspecified Status: Acute Assessment and Plan: Continue wound VAC dressing changes for now 3 times a week. Due for a dressing change tomorrow. Would plan to discharge with the wound VAC if possible and have her potentially follow-up in the wound clinic in a few weeks. (2) Sacral osteomyelitis: Code(s): M46.28 - Osteomyelitis of vertebra, sacral and sacrococcygeal region Status: Acute Assessment and Plan: Continue IV antibiotics per primary team. Okay to discharge patient with wound VAC and IV antibiotics from our standpoint once placement is confirmed. Plan I have discussed the patient's case and plan of care with Dr. Cruz. Subjective Subjective Date/Time Seen: 08/16/23 11:19 Patient reports: no new complaints and afebrile Interval history: Patient seen today. No acute events overnight. Pruritus improved after using lotion. Still only having pain at the sacral wound with certain positions and dressing changes. Exam Narrative: Wound vac in place over sacral wound and functioning well, serosanguineous drainage in the canister Objective Data Vital Signs Vital Signs: Vital Signs - 24 hr 08/15/23 15:00 08/15/23 20:00 08/15/23 21:47 Temperature 97.8 F 98 F Pulse Rate 95 95 85 Respiratory Rate 16 16 18 Blood Pressure 109/54 L 121/55 L Pulse Oximetry 100 100 96 Oxygen Delivery Room Air 08/16/23 06:00 08/16/23 08:45 Temperature 97.7 F Pulse Rate 80 Respiratory Rate 18 Blood Pressure 140/66 Pulse Oximetry 99 Oxygen Delivery Room Air Intake/Output Intake/Output: Intake & Output 08/13/23 08/14/23 08/15/23 08/16/23 23:59 23:59 23:59 23:59 Intake Total 780 1260 1600 840 Output Total 1650 1600 1975 750 Balance -870 -340 -375 90 Meds/Results Medications: Active Medications Generic Name Dose Route Start Last Admin Trade Name Freq PRN Reason Stop Dose Admin Acetaminophen 650 mg 08/05/23 16:55 08/05/23 21:06 Acetaminophen 325 Mg Tablet PO 650 mg Q4H PRN Administration Mild Pain (1-3) or Fever Allopurinol 300 mg 08/10/23 09:00 08/16/23 08:44 Allopurinol 300 Mg Tablet PO 300 mg DAILY DAMON Administration Alteplase, Recombinant 2 mg 08/15/23 09:15 08/15/23 09:32 Alteplase 2 Mg Vial (Cathflo) IV PUSH 2 mg ONCE PRN Administration Line Occlusion Alteplase, Recombinant 2 mg 08/15/23 09:25 08/15/23 09:32 Alteplase 2 Mg Vial (Cathflo) IV PUSH 2 mg ONCE PRN Administration Line Occlusion Aspirin 81 mg 08/10/23 09:00 08/16/23 08:44 Aspirin 81 Mg Enteric Tablet PO 81 mg DAILY DAMON Administration Dextrose 12.5 gm 08/05/23 10:06 Dextrose 50% 25 Gm/50 Ml Syringe IV PUSH PRN PRN Hypoglycemia Protocol Docusate Sodium 100 mg 08/09/23 17:59 Docusate Sodium 100 Mg Capsule PO DAILY PRN constipation Enoxaparin Sodium 30 mg 08/09/23 11:05 08/16/23 08:45 Enoxaparin 30 Mg/0.3 Ml Syringe SUB-Q 30 mg DAILY DAMON Administration Fenofibrate 160 mg 08/10/23 09:00 08/16/23 08:44 Fenofibrate 160 Mg Tablet PO 160 mg DAILY DAMON Administration Glucagon 1 mg 08/09/23 08:28 Glucagon For Inj 1 Mg Vial IM PRN PRN Hypoglycemia Protocol Hydroxyzine HCl 10 mg 08/14/23 12:21 08/16/23 05:41 Hydroxyzine Hcl 10 Mg Tablet PO 10 mg Q6H PRN Administration Itching Dextrose 1,000 mls @ 100 mls/hr 08/05/23 10:06 Dextrose 5% 1,000 Ml IVPB PRN PRN Hypoglycemia Protocol Piperacillin/Tazobactam/Dextrose 3.375 gm in 50 mls @ 100 mls/hr 08/13/23 18:00 08/16/23 05:50 Zosyn 3.375 Gm/Ns 50 Ml IVPB Infused Q6HR DAMON Infusion Sodium Chloride 1,000 mls @ 75 mls/hr 08/16/23 06:15 08/16/23 07:51 Normal Sa
[2023-08-16 12:12] LABS: Glucose Point of Care 180 mg/dl (65-105)
--- NOTE | 2023-08-16 12:40 | P.PNNP_ITS ---
Progress Note: A&P Assessment and Plan (1) MIRIAM (acute kidney injury): Code(s): N17.9 - Acute kidney failure, unspecified Status: Acute Assessment and Plan: * had improved to back to baseline * creatinine up a bit today (08/16/23) * suspect ATN from multifactorial etiology: * hemodynamic instability/hypotension * prerenal factors * infection/sepsis * ongoing YEHUDA-I use prior to admission * evaluation to date: * urine eosinophils negative * urine electrolytes non-prerenal * renal ultrasound w/o obstruction * CPK mildly elevated -- not enough to affect kidney function * recheck urine electrolytes and UA/urine culture * trial of gentle IVFs today * continue to follow trend of repeat labs and UOP (2) Stage 3b chronic kidney disease: Code(s): N18.32 - Chronic kidney disease, stage 3b Status: Chronic Assessment and Plan: * baseline creatinine runs 1.1 - 1.6mg/dl (but has been as high as 2.0mg/ld in the past) * present since as far back as 2019 * presumably secondary to hypertension, diabetes, vascular disease and age- related change (3) Hyperkalemia: Code(s): E87.5 - Hyperkalemia Status: Acute Assessment and Plan: * unclear etiology -- did receive K+ supplements once * due to wound burden from sacral decubitus ulcer(?) * on low K+ diet * medical management for now * if acidosis persists, consider adding sodium bicarb to help with this and K+ (4) Septic shock: Code(s): A41.9 - Sepsis, unspecified organism; R65.21 - Severe sepsis with septic shock Status: Acute Assessment and Plan: * resolved * suspected source = UTI + infected decubitus ulcer + cellulitis of buttocks + sacral osteomyelitis * follow culture data * urine culture with E.coli * blood cultures (1/2 bottles) with Staph epidermis * on antibiotics (5) Decubitus ulcer of sacral region: Code(s): L89.159 - Pressure ulcer of sacral region, unspecified stage Status: Acute Assessment and Plan: * complicated by buttock cellulitis and osteomyelitis (as noted by imaging) * already on antibiotic therapy * Surgery following -- s/p debridement (on 08/08/23) * wound vac in place (6) Insulin dependent type 2 diabetes mellitus: Code(s): E11.9 - Type 2 diabetes mellitus without complications; Z79.4 - retirement (current) use of insulin Status: Acute Assessment and Plan: * follow accu-cheks * glycemic control per hospitalists Not much else to add -- will continue to follow intermittently. Subjective Date/time seen: 08/16/23 12:40 Interval history: Follow-up for acute kidney injury/acute renal failure on chronic kidney disease. Renal function up a bit from baseline by AM labs today but stable electrolytes and continues to have reasonable urine output; only complaints is some discomfort/pain localized to her sacral decubitus ulcer; no other acute issue/events voiced or noted; no apparent distress. Exam Narrative: General: elderly female in NAD Heart: normal S1 and S2; no rub Lungs: clear bilaterally Abdomen: soft, nontender, nondistended, positive bowel sounds Extremities: trace edema Skin: warm and dry Objective Data Vital Signs Vital Signs: Vital Signs Temp Pulse Resp BP Pulse Ox O2 Del Method 08/16/23 08:45 Room Air 08/16/23 06:00 97.
--- NOTE | 2023-08-16 12:40 | PM.PNNEP ---
Progress Note: A&P Assessment and Plan (1) MIRIAM (acute kidney injury): Code(s): N17.9 - Acute kidney failure, unspecified Status: Acute Assessment and Plan: had improved to back to baseline creatinine up a bit today (08/16/23) suspect ATN from multifactorial etiology: hemodynamic instability/hypotension prerenal factors infection/sepsis ongoing YEHUDA-I use prior to admission evaluation to date: urine eosinophils negative urine electrolytes non-prerenal renal ultrasound w/o obstruction CPK mildly elevated -- not enough to affect kidney function recheck urine electrolytes and UA/urine culture trial of gentle IVFs today continue to follow trend of repeat labs and UOP (2) Stage 3b chronic kidney disease: Code(s): N18.32 - Chronic kidney disease, stage 3b Status: Chronic Assessment and Plan: baseline creatinine runs 1.1 - 1.6mg/dl (but has been as high as 2.0mg/ld in the past) present since as far back as 2019 presumably secondary to hypertension, diabetes, vascular disease and age-related change (3) Hyperkalemia: Code(s): E87.5 - Hyperkalemia Status: Acute Assessment and Plan: unclear etiology -- did receive K+ supplements once due to wound burden from sacral decubitus ulcer(?) on low K+ diet medical management for now if acidosis persists, consider adding sodium bicarb to help with this and K+ (4) Septic shock: Code(s): A41.9 - Sepsis, unspecified organism; R65.21 - Severe sepsis with septic shock Status: Acute Assessment and Plan: resolved suspected source = UTI + infected decubitus ulcer + cellulitis of buttocks + sacral osteomyelitis follow culture data urine culture with E.coli blood cultures (1/2 bottles) with Staph epidermis on antibiotics (5) Decubitus ulcer of sacral region: Code(s): L89.159 - Pressure ulcer of sacral region, unspecified stage Status: Acute Assessment and Plan: complicated by buttock cellulitis and osteomyelitis (as noted by imaging) already on antibiotic therapy Surgery following -- s/p debridement (on 08/08/23) wound vac in place (6) Insulin dependent type 2 diabetes mellitus: Code(s): E11.9 - Type 2 diabetes mellitus without complications; 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 Subjective Date/time seen: 08/16/23 12:40 Interval history: Follow-up for acute kidney injury/acute renal failure on chronic kidney disease. Renal function up a bit from baseline by AM labs today but stable electrolytes and continues to have reasonable urine output; only complaints is some discomfort/pain localized to her sacral decubitus ulcer; no other acute issue/events voiced or noted; no apparent distress. Exam Narrative: General: elderly female in NAD Heart: normal S1 and S2; no rub Lungs: clear bilaterally Abdomen: soft, nontender, nondistended, positive bowel sounds Extremities: trace edema Skin: warm and dry Objective Data Vital Signs Vital Signs: Vital Signs Temp Pulse Resp BP Pulse Ox O2 Del Method 08/16/23 08:45 Room Air 08/16/23 06:00 97.7 F 80 18 140/66 99 08/15/23 21:47 98 F 85 18 121/55 L 96 08/15/23 20:00 95 16 100 Room Air Intake/Output Intake/Output: Intake & Output 08/13/23 08/14/23 08/15/23 08/16/23 23:59 23:59 23:59 23:59 Intake Total 780 1260 1600 840 Output Total 1650 1600 1975 750 Balance -868 -825 -814 90 Meds/Results Medications: Active Medications Generic Name Dose Route Start Last Admin Trade Name Freq PRN Reason Stop Dose Admin Acetaminophen 650 mg 08/05/23 16:55 08/05/23 21:06 Acetaminophen 325 Mg Tablet PO 650 mg Q4H PRN Administration Mild Pain (1-3) or Fever
[2023-08-16] MEDS: cefTRIAXone 2 GM/NS 100 ML 2 GM/100 ML BAG IVPB (13:18)
--- NOTE | 2023-08-16 15:21 | PM.IMPN ---
Progress Note: A&P Assessment and Plan (1) Decubitus ulcer of sacral region: Code(s): L89.159 - Pressure ulcer of sacral region, unspecified stage Status: Acute Assessment and Plan: Sacral decubitus ulcer with cellulitis and osteomyelitis as seen on CT CT scan of the abdomen and pelvis 08/05 showing prominent soft tissue thickening and subcu emphysema on the medial right buttock area extending into the region of the right sacrum and presacral space consistent with cellulitis and possible gangrene. Lower right sacral bone destruction noted consistent with osteomyelitis. Underwent surgical debridement with sharp excisional?scalpel and scissor debridement of subcutaneous tissue, bone, and fascia of sacral decubitus ulcer with placement of wound VAC on 08/08. 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 Patient was on Levophed which was weaned off She received appropriate amount of IV fluids but now discontinued -08/05 BCx (1of2) Staph Epi. Could be contaminant -08/05 UCx growing E coli sensitive to cephalosporins -08/09 BCx NGTD -patient underwent surgical debridement 08/08 -WBC mildly elevated but stable -Clindamycin stopped 08/09 -WBC 10-12 range; no fevers -meropenem and vancomycin (08/06) for 7 days -deescalate abx to Zosyn (08/13). Will need 6 weeks of treatment starting from last debridement. 08/16: Discharged on Rocephin 2 g daily plus Flagyl 500 mg q.8 until September 18 to complete 6 weeks (3) Sepsis: Qualifiers: Sepsis acute organ dysfunction status: with acute organ dysfunction Sepsis type: sepsis due to unspecified organism Severe sepsis acute organ dysfunction type: unspecified Severe sepsis shock status: with septic shock Qualified Code(s): A41.9 - Sepsis, unspecified organism; R65.21 - Severe sepsis with septic shock Code(s): A41.9 - Sepsis, unspecified organism Status: Acute Assessment and Plan: As above (4) Acute on chronic kidney failure: Code(s): N17.9 - Acute kidney failure, unspecified; N18.9 - Chronic kidney disease, unspecified Status: Acute Assessment and Plan: Patient has a history of chronic kidney disease with baseline Cr around 1.1-1.7 . She presents with acute on chronic kidney disease with Cr of 4 likely related to hypotension, shock, ATN, UTI, and meds (on lisinopril at home). -urine lytes did not show prerenal picture, urine eosinophils are negative; Total CK 755 but better on recheck -08/06 renal ultrasound:?Left renal cysts, largest measuring 1.7 cm. -adequately fluid-resuscitated at the time and now fluids stopped -good urine output -metabolic gap acidosis resolved with IV fluids with bicarb -creatinine stable at 1.5 today -not on diuretics at home -monitor urine output, electrolytes and creatinine -nephrology following and appreciate their input (5) Urinary tract infection: Qualifiers: Hematuria presence: without hematuria Urinary tract infection type: site unspecified Qualified Code(s): N39.0 - Urinary tract infection, site not specified Code(s): N39.0 - Urinary tract infection, site not specified Status: Acute Assessment and Plan: UA noted. IV abx started. 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 Continue AccuCheks covering
[2023-08-16 16:00] VITALS: BP 166/40; PULSE 97; RESP 16; TEMP 36.4; O2SAT 100
[2023-08-16 17:44] LABS: Glucose Point of Care 290 mg/dl (65-105)
[2023-08-16] MEDS: INSULIN ASPART (*BKC) 100 UNITS/ML SUB-Q ×2 (18:18→21:34)
--- NOTE | 2023-08-16 19:50 | PC.NURSE ---
Pt had no change in status. Pt compliant with care. Pt tolerated repositioning well. Pt PICC line patent. Pt monitored for any changes in status.
[2023-08-16] MEDS: metroNIDAZOLE 250 MG TABLET 500 MG PO (21:32)
[2023-08-16] MEDS: INSULIN GLARGINE (*BKC) 100 UNITS/ML 8 UNITS SUB-Q (21:33)
[2023-08-16 21:44] LABS: Glucose Point of Care 253 mg/dl (65-105)
[2023-08-16 22:00] VITALS: BP 113/83; PULSE 97; RESP 14; TEMP 36.3; O2SAT 100
[2023-08-16 22:51] LABS: Appearance Urine Clear (Clear); Bacteria Urine None Seen /hpf; Bilirubin Urine Negative (Negative); Blood Urine Trace (Negative); Color Urine Yellow (Yellow); Glucose Urine UA 2+ mg/dL (Negative); Ketones Urine Negative (Negative); Leukocyte Esterase Ur 1+ LEU/UL (Negative); Nitrate Urine Negative (Negative); Non Pathogenic Casts 0-2; Protein Urine 1+ mg/dL (Negative); RBC Urine 0-2 /hpf (0-2); Specific Grav Ur 1.015 (1.001-1.035); Squamous Epithelial Cell Urine None seen /hpf (Few); Urobilinogen Urine 0.2 mg/dL (<2.0); WBC Urine 21-50 /hpf
[2023-08-16 22:52] LABS: Add Urine Microscopic? YES
[2023-08-16 23:17] LABS: Creatinine Urine 20.3 mg/dL; Total Protein Urine Random 53 mg/dL; Ur Ttl Prot Creatinine Ratio 2.61 mg/mg (0-0.20); Urea Random Urine 482 MG/DL
[2023-08-16 23:23] LABS: Eosinophil Urine None Seen % (None Seen); Urine Eos QC 2nd Tech Confirmed
[2023-08-16 23:34] LABS: Sodium Urine Random 110 meq/L
[2023-08-17] MEDS: oxyCODONE/ACETAMINOPHEN (*CRX) 5-325 MG TABLET 1 TABLET PO ×6 (01:14→21:35)
[2023-08-17] MEDS: metroNIDAZOLE 250 MG TABLET 500 MG PO ×3 (05:42→21:33)
[2023-08-17] MEDS: CENTRAL LINE FLUSH 10 ML IV PUSH ×3 (05:43→21:35)
[2023-08-17 05:55] LABS: Basophils Absolute Auto 0.1 K/mm3 (0.0-0.1); Basophils Percent Auto 0.4 % (0.2-1.2); Eosinophils Absolute Auto 0.7 K/mm3 (0-0.3); Eosinophils Percent Auto 5.3 % (0-4.4); Hematocrit 23.9 % (37.0-47.0); Hemoglobin 7.1 g/dL (12.0-15.0); Immature Granulocyte Absolute 0.07 K/mm3 (0.00-0.031); Immature Granulocyte Percent A 0.6 % (0-0.5); Lymphocytes Absolute Auto 0.94 K/mm3 (0.9-3.2); Lymphocytes Percent Auto 7.4 % (18.3-44.2); Mean Corpuscular HGB Conc 29.7 g/dl (32-36); Mean Corpuscular Hemoglobin 27.2 pg (26-34); Mean Corpuscular Volume 91.6 fl (80-100); Mean Platelet Volume 9.3 fl (7.4-10.4); Monocytes Absolute Auto 0.6 K/mm3 (0.1-0.6); Monocytes Percent Auto 4.9 % (2.6-8.5); Neutrophils Absolute Auto 10.3 K/mm3 (1.3-6.7); Neutrophils Percent Auto 81.4 % (45.5-73.1); Platelet Count Result 447 k/mm3 (150-375); Red Blood Count 2.61 M/mm3 (4.2-5.4); Red Cell Distribution Width 16.9 % (11.5-14.5); White Blood Count 12.6 K/mm3 (4.5-10.0)
[2023-08-17 06:00] VITALS: BP 108/60; PULSE 78; RESP 16; TEMP 36.3; O2SAT 100
[2023-08-17 06:05] LABS: Alanine Aminotransferase 18 U/L (6-35); Alkaline Phosphatase 47 U/L (38-126); Anion Gap 6 mmol/L (8-16); Aspartate Amino Transferase 29 U/L (14-36); Bilirubin,Total 0.2 mg/dL (0.2-1.3); Blood Urea Nitrogen 66 mg/dL (7-17); Calcium 9.1 mg/dL (8.4-10.2); Carbon Dioxide 20 mmol/L (22-30); Chloride 111 mmol/L (98-107); Estimated CRCL calculation 26 ml/min; Estimated Glomerular Filt Rate 26; Glucose 135 mg/dL (65-110); Potassium 4.4 mmol/L (3.4-5.0); Sodium 137 mmol/L (137-145)
[2023-08-17 07:59] LABS: Glucose Point of Care 114 mg/dl (65-105)
[2023-08-17] MEDS: allopurinoL 300 MG TABLET PO (08:20)
[2023-08-17] MEDS: hydrOXYzine HCL 10 MG TABLET PO (08:20)
[2023-08-17] MEDS: ENOXAPARIN 30 MG/0.3 ML SYRINGE SUB-Q (08:20)
[2023-08-17] MEDS: FENOFIBRATE 160 MG TABLET PO (08:20)
[2023-08-17] MEDS: ASPIRIN 81 MG ENTERIC TABLET PO (08:20)
[2023-08-17] MEDS: TOLNAFTATE 1% POWDER 45 GM BTL 1 APPLIC TOPICAL ×2 (08:21→21:34)
[2023-08-17 11:55] LABS: Glucose Point of Care 191 mg/dl (65-105)
[2023-08-17] MEDS: cefTRIAXone 2 GM/NS 100 ML 2 GM/100 ML BAG IVPB (12:19)
--- NOTE | 2023-08-17 12:55 | P.PNNP_ITS ---
Progress Note: A&P Assessment and Plan (1) MIRIAM (acute kidney injury): Code(s): N17.9 - Acute kidney failure, unspecified Status: Acute Assessment and Plan: * doing better in the last 24 hours * creatinine up a bit on 08/16/23 * better today s/p IVFs * suspect ATN from multifactorial etiology: * hemodynamic instability/hypotension * prerenal factors * infection/sepsis * ongoing YEHUDA-I use prior to admission * evaluation to date: * urine eosinophils negative * urine electrolytes non-prerenal * renal ultrasound w/o obstruction * CPK mildly elevated -- not enough to affect kidney function * continue to follow trend of repeat labs and UOP (2) Stage 3b chronic kidney disease: Code(s): N18.32 - Chronic kidney disease, stage 3b Status: Chronic Assessment and Plan: * baseline creatinine runs 1.1 - 1.6mg/dl (but has been as high as 2.0mg/ld in the past) * present since as far back as 2019 * presumably secondary to hypertension, diabetes, vascular disease and age- related change (3) Hyperkalemia: Code(s): E87.5 - Hyperkalemia Status: Acute Assessment and Plan: * unclear etiology -- did receive K+ supplements once * due to wound burden from sacral decubitus ulcer(?) * on low K+ diet * medical management for now * if acidosis persists, consider adding sodium bicarb to help with this and K+ (4) Septic shock: Code(s): A41.9 - Sepsis, unspecified organism; R65.21 - Severe sepsis with septic shock Status: Acute Assessment and Plan: * resolved * suspected source = UTI + infected decubitus ulcer + cellulitis of buttocks + sacral osteomyelitis * follow culture data * urine culture with E.coli * blood cultures (1/2 bottles) with Staph epidermis * on antibiotics (5) Decubitus ulcer of sacral region: Code(s): L89.159 - Pressure ulcer of sacral region, unspecified stage Status: Acute Assessment and Plan: * complicated by buttock cellulitis and osteomyelitis (as noted by imaging) * already on antibiotic therapy * Surgery following -- s/p debridement (on 08/08/23) * wound vac in place (6) Insulin dependent type 2 diabetes mellitus: Code(s): E11.9 - Type 2 diabetes mellitus without complications; Z79.4 - FDC (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 Subjective Date/time seen: 08/17/23 12:55 Interval history: Follow-up for acute kidney injury/acute renal failure on chronic kidney disease. Renal function better follow trial of IVFs yesterday; continues to have good urine output; no other acute issue/events overnight or earlier this morning; no apparent distress voiced at the the time of my visit. Exam Narrative: General: elderly female in NAD Heart: normal S1 and S2; no rub Lungs: clear bilaterally Abdomen: soft, nontender, nondistended, positive bowel sounds Extremities: trace edema Skin: warm and intact Objective Data Vital Signs Vital Signs: Vital Signs Temp Pulse Resp BP Pulse Ox O2 Del Method 08/17/23 08:20 Room Air 08/17/23 06:00 97.4 F L 78 16 108/60 100 08/16/23 20:00 Room Air 08/16/23 22:00 97.3 F L 97 14 113/83 100 08/16
--- NOTE | 2023-08-17 12:55 | PM.PNNEP ---
Progress Note: A&P Assessment and Plan (1) MIRIAM (acute kidney injury): Code(s): N17.9 - Acute kidney failure, unspecified Status: Acute Assessment and Plan: doing better in the last 24 hours creatinine up a bit on 08/16/23 better today s/p IVFs suspect ATN from multifactorial etiology: hemodynamic instability/hypotension prerenal factors infection/sepsis ongoing YEHUDA-I use prior to admission evaluation to date: urine eosinophils negative urine electrolytes non-prerenal renal ultrasound w/o obstruction CPK mildly elevated -- not enough to affect kidney function continue to follow trend of repeat labs and UOP (2) Stage 3b chronic kidney disease: Code(s): N18.32 - Chronic kidney disease, stage 3b Status: Chronic Assessment and Plan: baseline creatinine runs 1.1 - 1.6mg/dl (but has been as high as 2.0mg/ld in the past) present since as far back as 2019 presumably secondary to hypertension, diabetes, vascular disease and age-related change (3) Hyperkalemia: Code(s): E87.5 - Hyperkalemia Status: Acute Assessment and Plan: unclear etiology -- did receive K+ supplements once due to wound burden from sacral decubitus ulcer(?) on low K+ diet medical management for now if acidosis persists, consider adding sodium bicarb to help with this and K+ (4) Septic shock: Code(s): A41.9 - Sepsis, unspecified organism; R65.21 - Severe sepsis with septic shock Status: Acute Assessment and Plan: resolved suspected source = UTI + infected decubitus ulcer + cellulitis of buttocks + sacral osteomyelitis follow culture data urine culture with E.coli blood cultures (1/2 bottles) with Staph epidermis on antibiotics (5) Decubitus ulcer of sacral region: Code(s): L89.159 - Pressure ulcer of sacral region, unspecified stage Status: Acute Assessment and Plan: complicated by buttock cellulitis and osteomyelitis (as noted by imaging) already on antibiotic therapy Surgery following -- s/p debridement (on 08/08/23) wound vac in place (6) Insulin dependent type 2 diabetes mellitus: Code(s): E11.9 - Type 2 diabetes mellitus without complications; Z79.4 - terminal system 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 Subjective Date/time seen: 08/17/23 12:55 Interval history: Follow-up for acute kidney injury/acute renal failure on chronic kidney disease. Renal function better follow trial of IVFs yesterday; continues to have good urine output; no other acute issue/events overnight or earlier this morning; no apparent distress voiced at the the time of my visit. Exam Narrative: General: elderly female in NAD Heart: normal S1 and S2; no rub Lungs: clear bilaterally Abdomen: soft, nontender, nondistended, positive bowel sounds Extremities: trace edema Skin: warm and intact Objective Data Vital Signs Vital Signs: Vital Signs Temp Pulse Resp BP Pulse Ox O2 Del Method 08/17/23 08:20 Room Air 08/17/23 06:00 97.4 F L 78 16 108/60 100 08/16/23 20:00 Room Air 08/16/23 22:00 97.3 F L 97 14 113/83 100 08/16/23 16:00 97.6 F 97 16 166/40 H 100 Intake/Output Intake/Output: Intake & Output 08/14/23 08/15/23 08/16/23 08/17/23 23:59 23:59 23:59 23:59 Intake Total 1260 1600 2520 2262 Output Total 1600 1975 1750 1500 Balance -340 -375 770 762 Meds/Results Medications: Active Medications Generic Name Dose Route Start Last Admin Trade Name Freq PRN Reason Stop Dose Admin Acetaminophen 650 mg 08/05/23 16:55 08/05/23 21:06 Acetaminophen 325 Mg Tablet PO 650 mg Q4H PRN Administration Mild Pain (1-3) or Fever Allopurinol 300 mg 08/10/23 09:00 08/17/23 08:20 Allopurinol 300 Mg Tablet PO 300 mg
--- NOTE | 2023-08-17 13:58 | PM.IMPN ---
Progress Note: A&P Assessment and Plan (1) Decubitus ulcer of sacral region: Code(s): L89.159 - Pressure ulcer of sacral region, unspecified stage Status: Acute Assessment and Plan: Sacral decubitus ulcer with cellulitis and osteomyelitis as seen on CT CT scan of the abdomen and pelvis 08/05 showing prominent soft tissue thickening and subcu emphysema on the medial right buttock area extending into the region of the right sacrum and presacral space consistent with cellulitis and possible gangrene. Lower right sacral bone destruction noted consistent with osteomyelitis. Underwent surgical debridement with sharp excisional?scalpel and scissor debridement of subcutaneous tissue, bone, and fascia of sacral decubitus ulcer with placement of wound VAC on 08/08. -continue antibiotics -Wound vac dressing changed yesterday; continue Wound vac with next change on Sunday -PICC line in place if computer terminal operator IV abx needed (2) Shock: Code(s): R57.9 - Shock, unspecified Status: Acute Assessment and Plan: Septic shock secondary to osteomyelitis, UTI, bacteremia and soft tissue and sacral infection. Patient was on Levophed which was weaned off She received appropriate amount of IV fluids but now discontinued -08/05 BCx (1of2) Staph Epi. Could be contaminant -08/05 UCx growing E coli sensitive to cephalosporins -08/09 BCx NGTD -patient underwent surgical debridement 08/08 -WBC mildly elevated but stable -Clindamycin stopped 08/09 -WBC 10-12 range; no fevers -meropenem and vancomycin (08/06) for 7 days -deescalate abx to Zosyn (08/13). Will need 6 weeks of treatment starting from last debridement. 08/16: Discharged on Rocephin 2 g daily plus Flagyl 500 mg q.8 until September 18 to complete 6 weeks (3) Sepsis: Qualifiers: Sepsis acute organ dysfunction status: with acute organ dysfunction Sepsis type: sepsis due to unspecified organism Severe sepsis acute organ dysfunction type: unspecified Severe sepsis shock status: with septic shock Qualified Code(s): A41.9 - Sepsis, unspecified organism; R65.21 - Severe sepsis with septic shock Code(s): A41.9 - Sepsis, unspecified organism Status: Acute Assessment and Plan: As above (4) Acute on chronic kidney failure: Code(s): N17.9 - Acute kidney failure, unspecified; N18.9 - Chronic kidney disease, unspecified Status: Acute Assessment and Plan: Patient has a history of chronic kidney disease with baseline Cr around 1.1-1.7 . She presents with acute on chronic kidney disease with Cr of 4 likely related to hypotension, shock, ATN, UTI, and meds (on lisinopril at home). -urine lytes did not show prerenal picture, urine eosinophils are negative; Total CK 755 but better on recheck -08/06 renal ultrasound:?Left renal cysts, largest measuring 1.7 cm. -adequately fluid-resuscitated at the time and now fluids stopped -good urine output -metabolic gap acidosis resolved with IV fluids with bicarb -creatinine stable at 1.5 today -not on diuretics at home -monitor urine output, electrolytes and creatinine -nephrology following and appreciate their input (5) Urinary tract infection: Qualifiers: Hematuria presence: without hematuria Urinary tract infection type: site unspecified Qualified Code(s): N39.0 - Urinary tract infection, site not specified Code(s): N39.0 - Urinary tract infection, site not specified Status: Acute Assessment and Plan: UA noted. IV abx started. 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 Continue AccuCheks covering
[2023-08-17 14:00] VITALS: BP 130/51; PULSE 101; RESP 16; TEMP 36.9; O2SAT 100
--- NOTE | 2023-08-17 14:14 | PM.DS ---
DS: Admitting Diagnosis Discharge Date 08/19/2023 Admitting Diagnosis Hypoglycemia DS: Discharge Diagnosis Discharge Diagnosis (1) Decubitus ulcer of sacral region: Code(s): L89.159 - Pressure ulcer of sacral region, unspecified stage Status: Acute Assessment and Plan: Sacral decubitus ulcer with cellulitis and osteomyelitis as seen on CT CT scan of the abdomen and pelvis 08/05 showing prominent soft tissue thickening and subcu emphysema on the medial right buttock area extending into the region of the right sacrum and presacral space consistent with cellulitis and possible gangrene. Lower right sacral bone destruction noted consistent with osteomyelitis. Underwent surgical debridement with sharp excisional?scalpel and scissor debridement of subcutaneous tissue, bone, and fascia of sacral decubitus ulcer with placement of wound VAC on 08/08. -continue antibiotics -Wound vac dressing changed yesterday; continue Wound vac with next change on Sunday -PICC line in place if senior care IV abx needed (2) Shock: Code(s): R57.9 - Shock, unspecified Status: Acute Assessment and Plan: Septic shock secondary to osteomyelitis, UTI, bacteremia and soft tissue and sacral infection. Patient was on Levophed which was weaned off She received appropriate amount of IV fluids but now discontinued -08/05 BCx (1of2) Staph Epi. Could be contaminant -08/05 UCx growing E coli sensitive to cephalosporins -08/09 BCx NGTD -patient underwent surgical debridement 08/08 -WBC mildly elevated but stable -Clindamycin stopped 08/09 -WBC 10-12 range; no fevers -meropenem and vancomycin (08/06) for 7 days -deescalate abx to Zosyn (08/13). Will need 6 weeks of treatment starting from last debridement. 08/16: Discharged on Rocephin 2 g daily plus Flagyl 500 mg q.8 until September 18 to complete 6 weeks (3) Sepsis: Qualifiers: Sepsis acute organ dysfunction status: with acute organ dysfunction Sepsis type: sepsis due to unspecified organism Severe sepsis acute organ dysfunction type: unspecified Severe sepsis shock status: with septic shock Qualified Code(s): A41.9 - Sepsis, unspecified organism; R65.21 - Severe sepsis with septic shock Code(s): A41.9 - Sepsis, unspecified organism Status: Acute Assessment and Plan: As above (4) Acute on chronic kidney failure: Code(s): N17.9 - Acute kidney failure, unspecified; N18.9 - Chronic kidney disease, unspecified Status: Acute Assessment and Plan: Patient has a history of chronic kidney disease with baseline Cr around 1.1-1.7 . She presents with acute on chronic kidney disease with Cr of 4 likely related to hypotension, shock, ATN, UTI, and meds (on lisinopril at home). -urine lytes did not show prerenal picture, urine eosinophils are negative; Total CK 755 but better on recheck -08/06 renal ultrasound:?Left renal cysts, largest measuring 1.7 cm. -adequately fluid-resuscitated at the time and now fluids stopped -good urine output -metabolic gap acidosis resolved with IV fluids with bicarb -creatinine stable at 1.5 today -not on diuretics at home -monitor urine output, electrolytes and creatinine -nephrology following and appreciate their input (5) Urinary tract infection: Qualifiers: Hematuria presence: without hematuria Urinary tract infection type: site unspecified Qualified Code(s): N39.0 - Urinary tract infection, site not specified Code(s): N39.0 - Urinary tract infection, site not specified Status: Acute Assessment and Plan: UA noted. IV abx started. 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
[2023-08-17] MEDS: INSULIN ASPART (*BKC) 100 UNITS/ML SUB-Q ×2 (16:49→21:39)
[2023-08-17 16:55] LABS: Glucose Point of Care 255 mg/dl (65-105)
[2023-08-17] MEDS: INSULIN GLARGINE (*BKC) 100 UNITS/ML 8 UNITS SUB-Q (21:39)
[2023-08-17 22:00] VITALS: BP 132/68; PULSE 93; RESP 14; TEMP 35.9; O2SAT 100
[2023-08-17 22:10] LABS: Glucose Point of Care 226 mg/dl (65-105)
[2023-08-18] MEDS: metroNIDAZOLE 250 MG TABLET 500 MG PO ×3 (05:16→20:48)
[2023-08-18] MEDS: CENTRAL LINE FLUSH 10 ML IV PUSH ×2 (05:17→12:21)
[2023-08-18] MEDS: CENTRAL LINE FLUSH 20 ML IV PUSH (05:17)
[2023-08-18 05:52] LABS: Basophils Absolute Auto 0.1 K/mm3 (0.0-0.1); Basophils Percent Auto 0.9 % (0.2-1.2); Eosinophils Absolute Auto 0.7 K/mm3 (0-0.3); Eosinophils Percent Auto 6.3 % (0-4.4); Hematocrit 24.2 % (37.0-47.0); Hemoglobin 7.2 g/dL (12.0-15.0); Immature Granulocyte Absolute 0.04 K/mm3 (0.00-0.031); Immature Granulocyte Percent A 0.4 % (0-0.5); Lymphocytes Absolute Auto 1.52 K/mm3 (0.9-3.2); Lymphocytes Percent Auto 13.5 % (18.3-44.2); Mean Corpuscular HGB Conc 29.8 g/dl (32-36); Mean Corpuscular Hemoglobin 26.9 pg (26-34); Mean Corpuscular Volume 90.3 fl (80-100); Mean Platelet Volume 9.8 fl (7.4-10.4); Monocytes Absolute Auto 0.9 K/mm3 (0.1-0.6); Monocytes Percent Auto 7.8 % (2.6-8.5); Neutrophils Absolute Auto 8.1 K/mm3 (1.3-6.7); Neutrophils Percent Auto 71.1 % (45.5-73.1); Platelet Count Result 495 k/mm3 (150-375); Red Blood Count 2.68 M/mm3 (4.2-5.4); Red Cell Distribution Width 17.1 % (11.5-14.5); White Blood Count 11.3 K/mm3 (4.5-10.0)
[2023-08-18 06:00] VITALS: BP 119/68; PULSE 84; RESP 16; TEMP 36.1; O2SAT 100
[2023-08-18 06:00] LABS: Alanine Aminotransferase 26 U/L (6-35); Alkaline Phosphatase 53 U/L (38-126); Anion Gap 7 mmol/L (8-16); Aspartate Amino Transferase 56 U/L (14-36); Bilirubin,Total 0.2 mg/dL (0.2-1.3); Blood Urea Nitrogen 61 mg/dL (7-17); Calcium 9.2 mg/dL (8.4-10.2); Carbon Dioxide 20 mmol/L (22-30); Chloride 112 mmol/L (98-107); Estimated CRCL calculation 27 ml/min; Estimated Glomerular Filt Rate 27; Glucose 145 mg/dL (65-110); Potassium 4.5 mmol/L (3.4-5.0); Sodium 139 mmol/L (137-145)
[2023-08-18 07:07] LABS: Anisocytosis 1+ (NORMAL); Hypochromasia 1+ (NORMAL); Platelet Estimate Increased (Adequate); Schistocytes None Seen (NORMAL)
[2023-08-18 08:08] LABS: Glucose Point of Care 129 mg/dl (65-105)
[2023-08-18] MEDS: allopurinoL 300 MG TABLET PO (09:10)
[2023-08-18] MEDS: hydrOXYzine HCL 10 MG TABLET PO (09:10)
[2023-08-18] MEDS: ASPIRIN 81 MG ENTERIC TABLET PO (09:10)
[2023-08-18] MEDS: oxyCODONE/ACETAMINOPHEN (*CRX) 5-325 MG TABLET 1 TABLET PO ×4 (09:10→20:48)
[2023-08-18] MEDS: ENOXAPARIN 30 MG/0.3 ML SYRINGE SUB-Q (09:10)
[2023-08-18] MEDS: TOLNAFTATE 1% POWDER 45 GM BTL 1 APPLIC TOPICAL ×2 (09:10→20:44)
[2023-08-18] MEDS: FENOFIBRATE 160 MG TABLET PO (09:10)
[2023-08-18 12:05] LABS: Glucose Point of Care 352 mg/dl (65-105)
[2023-08-18] MEDS: INSULIN ASPART (*BKC) 100 UNITS/ML SUB-Q (12:19)
[2023-08-18] MEDS: cefTRIAXone 2 GM/NS 100 ML 2 GM/100 ML BAG IVPB (12:20)
[2023-08-18 14:00] VITALS: BP 124/78; PULSE 100; RESP 16; TEMP 36.4; O2SAT 99
[2023-08-18 16:44] LABS: Glucose Point of Care 173 mg/dl (65-105)
[2023-08-18 21:28] LABS: Glucose Point of Care 181 mg/dl (65-105)
[2023-08-18] MEDS: INSULIN GLARGINE (*BKC) 100 UNITS/ML 8 UNITS SUB-Q (21:29)
[2023-08-18 22:00] VITALS: BP 141/78; PULSE 95; RESP 21; TEMP 36.1; O2SAT 100
[2023-08-19] MEDS: oxyCODONE/ACETAMINOPHEN (*CRX) 5-325 MG TABLET 1 TABLET PO ×6 (02:40→21:04)
[2023-08-19 06:00] VITALS: BP 139/71; PULSE 91; RESP 21; TEMP 35.9; O2SAT 100
[2023-08-19] MEDS: metroNIDAZOLE 250 MG TABLET 500 MG PO ×3 (06:23→21:04)
[2023-08-19 06:24] LABS: Basophils Absolute Auto 0.1 K/mm3 (0.0-0.1); Basophils Percent Auto 1.3 % (0.2-1.2); Eosinophils Absolute Auto 0.7 K/mm3 (0-0.3); Eosinophils Percent Auto 6.2 % (0-4.4); Hematocrit 25.2 % (37.0-47.0); Hemoglobin 7.6 g/dL (12.0-15.0); Immature Granulocyte Absolute 0.05 K/mm3 (0.00-0.031); Immature Granulocyte Percent A 0.4 % (0-0.5); Lymphocytes Absolute Auto 1.66 K/mm3 (0.9-3.2); Lymphocytes Percent Auto 14.9 % (18.3-44.2); Mean Corpuscular HGB Conc 30.2 g/dl (32-36); Mean Corpuscular Hemoglobin 27.4 pg (26-34); Mean Platelet Volume 9.5 fl (7.4-10.4); Monocytes Absolute Auto 0.8 K/mm3 (0.1-0.6); Monocytes Percent Auto 7.5 % (2.6-8.5); Neutrophils Absolute Auto 7.8 K/mm3 (1.3-6.7); Neutrophils Percent Auto 69.7 % (45.5-73.1); Platelet Count Result 526 k/mm3 (150-375); Red Blood Count 2.77 M/mm3 (4.2-5.4); Red Cell Distribution Width 17.2 % (11.5-14.5); White Blood Count 11.2 K/mm3 (4.5-10.0)
[2023-08-19] MEDS: CENTRAL LINE FLUSH 10 ML IV PUSH ×3 (06:24→22:00)
[2023-08-19 06:33] LABS: Alanine Aminotransferase 34 U/L (6-35); Albumin Level 3.1 g/dL (3.5-5.1); Alkaline Phosphatase 63 U/L (38-126); Anion Gap 8 mmol/L (8-16); Aspartate Amino Transferase 71 U/L (14-36); Bilirubin,Total 0.2 mg/dL (0.2-1.3); Blood Urea Nitrogen 55 mg/dL (7-17); Calcium 9.5 mg/dL (8.4-10.2); Carbon Dioxide 21 mmol/L (22-30); Chloride 112 mmol/L (98-107); Estimated CRCL calculation 30 ml/min; Estimated Glomerular Filt Rate 31; Glucose 146 mg/dL (65-110); Sodium 141 mmol/L (137-145)
[2023-08-19 07:54] LABS: Glucose Point of Care 136 mg/dl (65-105)
--- NOTE | 2023-08-19 08:14 | P.PNIM_ITS ---
Progress Note: A&P Assessment and Plan (1) Decubitus ulcer of sacral region: Code(s): L89.159 - Pressure ulcer of sacral region, unspecified stage Status: Acute Assessment and Plan: Sacral decubitus ulcer with cellulitis and osteomyelitis as seen on CT CT scan of the abdomen and pelvis 08/05 showing prominent soft tissue thickening and subcu emphysema on the medial right buttock area extending into the region of the right sacrum and presacral space consistent with cellulitis and possible gangrene. Lower right sacral bone destruction noted consistent with osteomyelitis. Underwent surgical debridement with sharp excisional?scalpel and scissor debridement of subcutaneous tissue, bone, and fascia of sacral decubitus ulcer with placement of wound VAC on 08/08. 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 Patient was on Levophed which was weaned off She received appropriate amount of IV fluids but now discontinued -08/05 BCx (1of2) Staph Epi. Could be contaminant -08/05 UCx growing E coli sensitive to cephalosporins -08/09 BCx NGTD -patient underwent surgical debridement 08/08 -WBC mildly elevated but stable -Clindamycin stopped 08/09 -WBC 10-12 range; no fevers -meropenem and vancomycin (08/06) for 7 days -deescalate abx to Zosyn (08/13). Will need 6 weeks of treatment starting from last debridement. 08/16: Discharged on Rocephin 2 g daily plus Flagyl 500 mg q.8 until September 18 to complete 6 weeks (3) Sepsis: Qualifiers: Sepsis acute organ dysfunction status: with acute organ dysfunction Sepsis type: sepsis due to unspecified organism Severe sepsis acute organ dysfunction type: unspecified Severe sepsis shock status: with septic shock Qualified Code(s): A41.9 - Sepsis, unspecified organism; R65.21 - Severe sepsis with septic shock Code(s): A41.9 - Sepsis, unspecified organism Status: Acute Assessment and Plan: As above (4) Acute on chronic kidney failure: Code(s): N17.9 - Acute kidney failure, unspecified; N18.9 - Chronic kidney disease, unspecified Status: Acute Assessment and Plan: Patient has a history of chronic kidney disease with baseline Cr around 1.1-1.7 . She presents with acute on chronic kidney disease with Cr of 4 likely related to hypotension, shock, ATN, UTI, and meds (on lisinopril at home). -urine lytes did not show prerenal picture, urine eosinophils are negative; Total CK 755 but better on recheck -08/06 renal ultrasound:?Left renal cysts, largest measuring 1.7 cm. -adequately fluid-resuscitated at the time and now fluids stopped -good urine output -metabolic gap acidosis resolved with IV fluids with bicarb -creatinine stable at 1.5 today -not on diuretics at home -monitor urine output, electrolytes and creatinine -nephrology following and appreciate their input (5) Urinary tract infection: Qualifiers: Hematuria presence: without hematuria Urinary tract infection type: site unspecified Qualified Code(s): N39.0 - Urinary tract infection, site not specified Code(s): N39.0 - Urinary tract infection, site not specified Status: Acute Assessment and Plan: UA noted. IV abx started. Urine culture growing EColi -she completed a course of abx -remove Sue when a
[2023-08-19] MEDS: ENOXAPARIN 30 MG/0.3 ML SYRINGE SUB-Q (09:05)
[2023-08-19] MEDS: ASPIRIN 81 MG ENTERIC TABLET PO (09:05)
[2023-08-19] MEDS: hydrOXYzine HCL 10 MG TABLET PO ×2 (09:05→21:04)
[2023-08-19] MEDS: FENOFIBRATE 160 MG TABLET PO (09:06)
[2023-08-19] MEDS: allopurinoL 300 MG TABLET PO (09:06)
[2023-08-19] MEDS: TOLNAFTATE 1% POWDER 45 GM BTL 1 APPLIC TOPICAL ×2 (09:06→21:03)
[2023-08-19 11:39] LABS: Glucose Point of Care 317 mg/dl (65-105)
[2023-08-19] MEDS: cefTRIAXone 2 GM/NS 100 ML 2 GM/100 ML BAG IVPB (12:21)
[2023-08-19] MEDS: INSULIN ASPART (*BKC) 100 UNITS/ML SUB-Q ×3 (12:22→21:07)
--- NOTE | 2023-08-19 13:11 | P.PNNP_ITS ---
Progress Note: A&P Assessment and Plan (1) MIRIAM (acute kidney injury): Code(s): N17.9 - Acute kidney failure, unspecified Status: Acute Assessment and Plan: * doing better if not back to baseline * creatinine up a bit on 08/16/23 * better in general s/p IVFs * suspect ATN from multifactorial etiology: * hemodynamic instability/hypotension * prerenal factors * infection/sepsis * ongoing YEHUDA-I use prior to admission * evaluation to date: * urine eosinophils negative * urine electrolytes non-prerenal * renal ultrasound w/o obstruction * CPK mildly elevated -- not enough to affect kidney function * continue to follow trend of repeat labs and UOP (2) Stage 3b chronic kidney disease: Code(s): N18.32 - Chronic kidney disease, stage 3b Status: Chronic Assessment and Plan: * baseline creatinine runs 1.1 - 1.6mg/dl (but has been as high as 2.0mg/ld in the past) * present since as far back as 2019 * presumably secondary to hypertension, diabetes, vascular disease and age- related change (3) Hyperkalemia: Code(s): E87.5 - Hyperkalemia Status: Acute Assessment and Plan: * unclear etiology -- did receive K+ supplements once * due to wound burden from sacral decubitus ulcer(?) * on low K+ diet * medical management for now * if acidosis persists, consider adding sodium bicarb to help with this and K+ (4) Septic shock: Code(s): A41.9 - Sepsis, unspecified organism; R65.21 - Severe sepsis with septic shock Status: Acute Assessment and Plan: * resolved * suspected source = UTI + infected decubitus ulcer + cellulitis of buttocks + sacral osteomyelitis * follow culture data * urine culture with E.coli * blood cultures (1/2 bottles) with Staph epidermis * on antibiotics (5) Decubitus ulcer of sacral region: Code(s): L89.159 - Pressure ulcer of sacral region, unspecified stage Status: Acute Assessment and Plan: * complicated by buttock cellulitis and osteomyelitis (as noted by imaging) * already on antibiotic therapy * Surgery following -- s/p debridement (on 08/08/23) * wound vac in place (6) Insulin dependent type 2 diabetes mellitus: Code(s): E11.9 - Type 2 diabetes mellitus without complications; Z79.4 - skilled nursing (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 Subjective Date/time seen: 08/19/23 13:11 Interval history: Follow-up for acute kidney injury/acute renal failure on chronic kidney disease. Renal function appears relatively stable at this time; no new issue/events overnight or earlier this morning; no apparent distress voiced; no other acute complaints to report currently. Exam Narrative: General: elderly female in NAD Heart: normal S1 and S2; no rub Lungs: clear bilaterally Abdomen: soft, nontender, nondistended, positive bowel sounds Extremities: trace edema Skin: no rash Objective Data Vital Signs Vital Signs: Vital Signs Temp Pulse Resp BP Pulse Ox O2 Del Method 08/19/23 13:00 97.1 F L 98 16 121/55 L 100 08/19/23 09:10 Room Air 08/19/23 06:00 96.6 F L 91 21 H 139/71 100 08/18/23 22:00 97.0 F L 95 21 H 141/78 H 100 08/18
--- NOTE | 2023-08-19 13:11 | PM.PNNEP ---
Progress Note: A&P Assessment and Plan (1) MIRIAM (acute kidney injury): Code(s): N17.9 - Acute kidney failure, unspecified Status: Acute Assessment and Plan: doing better if not back to baseline creatinine up a bit on 08/16/23 better in general s/p IVFs suspect ATN from multifactorial etiology: hemodynamic instability/hypotension prerenal factors infection/sepsis ongoing YEHUDA-I use prior to admission evaluation to date: urine eosinophils negative urine electrolytes non-prerenal renal ultrasound w/o obstruction CPK mildly elevated -- not enough to affect kidney function continue to follow trend of repeat labs and UOP (2) Stage 3b chronic kidney disease: Code(s): N18.32 - Chronic kidney disease, stage 3b Status: Chronic Assessment and Plan: baseline creatinine runs 1.1 - 1.6mg/dl (but has been as high as 2.0mg/ld in the past) present since as far back as 2019 presumably secondary to hypertension, diabetes, vascular disease and age-related change (3) Hyperkalemia: Code(s): E87.5 - Hyperkalemia Status: Acute Assessment and Plan: unclear etiology -- did receive K+ supplements once due to wound burden from sacral decubitus ulcer(?) on low K+ diet medical management for now if acidosis persists, consider adding sodium bicarb to help with this and K+ (4) Septic shock: Code(s): A41.9 - Sepsis, unspecified organism; R65.21 - Severe sepsis with septic shock Status: Acute Assessment and Plan: resolved suspected source = UTI + infected decubitus ulcer + cellulitis of buttocks + sacral osteomyelitis follow culture data urine culture with E.coli blood cultures (1/2 bottles) with Staph epidermis on antibiotics (5) Decubitus ulcer of sacral region: Code(s): L89.159 - Pressure ulcer of sacral region, unspecified stage Status: Acute Assessment and Plan: complicated by buttock cellulitis and osteomyelitis (as noted by imaging) already on antibiotic therapy Surgery following -- s/p debridement (on 08/08/23) wound vac in place (6) Insulin dependent type 2 diabetes mellitus: Code(s): E11.9 - Type 2 diabetes mellitus without complications; 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 Subjective Date/time seen: 08/19/23 13:11 Interval history: Follow-up for acute kidney injury/acute renal failure on chronic kidney disease. Renal function appears relatively stable at this time; no new issue/events overnight or earlier this morning; no apparent distress voiced; no other acute complaints to report currently. Exam Narrative: General: elderly female in NAD Heart: normal S1 and S2; no rub Lungs: clear bilaterally Abdomen: soft, nontender, nondistended, positive bowel sounds Extremities: trace edema Skin: no rash Objective Data Vital Signs Vital Signs: Vital Signs Temp Pulse Resp BP Pulse Ox O2 Del Method 08/19/23 13:00 97.1 F L 98 16 121/55 L 100 08/19/23 09:10 Room Air 08/19/23 06:00 96.6 F L 91 21 H 139/71 100 08/18/23 22:00 97.0 F L 95 21 H 141/78 H 100 08/18/23 20:00 Room Air Intake/Output Intake/Output: Intake & Output 08/16/23 08/17/23 08/18/23 08/19/23 23:59 23:59 23:59 23:59 Intake Total 2520 2982 1510 740 Output Total 1750 2550 1900 1275 Balance 770 154 -238 -599 Meds/Results Medications: Active Medications Generic Name Dose Route Start Last Admin Trade Name Freq PRN Reason Stop Dose Admin Acetaminophen 650 mg 08/05/23 16:55 08/05/23 21:06 Acetaminophen 325 Mg Tablet PO 650 mg Q4H PRN Administration Mild Pain (1-3) or Fever Allopurinol 300 mg 08/10/23 09:00 08/19/23 09:06 Allopurinol 300 Mg Tablet PO 300 mg DAILY DAMON Admin
[2023-08-19 14:00] VITALS: BP 121/55; PULSE 98; RESP 16; TEMP 36.2; O2SAT 100
[2023-08-19 16:42] LABS: Glucose Point of Care 273 mg/dl (65-105)
[2023-08-19 21:03] LABS: Glucose Point of Care 300 mg/dl (65-105)
[2023-08-19] MEDS: INSULIN GLARGINE (*BKC) 100 UNITS/ML 8 UNITS SUB-Q (21:05)
[2023-08-19 22:00] VITALS: BP 107/83; PULSE 94; RESP 16; TEMP 35.7; O2SAT 99
[2023-08-20] MEDS: oxyCODONE/ACETAMINOPHEN (*CRX) 5-325 MG TABLET 1 TABLET PO ×3 (04:15→13:10)
[2023-08-20 05:57] VITALS: BP 133/60; PULSE 88; RESP 20; TEMP 35.5; O2SAT 100
[2023-08-20] MEDS: CENTRAL LINE FLUSH 10 ML IV PUSH (05:58)
[2023-08-20] MEDS: metroNIDAZOLE 250 MG TABLET 500 MG PO (05:58)
[2023-08-20 06:15] LABS: Basophils Absolute Auto 0.1 K/mm3 (0.0-0.1); Eosinophils Absolute Auto 0.7 K/mm3 (0-0.3); Hematocrit 24.9 % (37.0-47.0); Hemoglobin 7.5 g/dL (12.0-15.0); Immature Granulocyte Absolute 0.05 K/mm3 (0.00-0.031); Immature Granulocyte Percent A 0.4 % (0-0.5); Lymphocytes Absolute Auto 1.69 K/mm3 (0.9-3.2); Lymphocytes Percent Auto 14.1 % (18.3-44.2); Mean Corpuscular HGB Conc 30.1 g/dl (32-36); Mean Corpuscular Hemoglobin 27.9 pg (26-34); Mean Corpuscular Volume 92.6 fl (80-100); Mean Platelet Volume 9.6 fl (7.4-10.4); Monocytes Absolute Auto 0.9 K/mm3 (0.1-0.6); Monocytes Percent Auto 7.1 % (2.6-8.5); Neutrophils Absolute Auto 8.6 K/mm3 (1.3-6.7); Neutrophils Percent Auto 71.4 % (45.5-73.1); Platelet Count Result 554 k/mm3 (150-375); Red Blood Count 2.69 M/mm3 (4.2-5.4); Red Cell Distribution Width 17.7 % (11.5-14.5)
[2023-08-20 06:25] LABS: Alanine Aminotransferase 29 U/L (6-35); Albumin Level 3.2 g/dL (3.5-5.1); Alkaline Phosphatase 68 U/L (38-126); Anion Gap 7 mmol/L (8-16); Aspartate Amino Transferase 41 U/L (14-36); Bilirubin,Total 0.2 mg/dL (0.2-1.3); Blood Urea Nitrogen 53 mg/dL (7-17); Calcium 9.5 mg/dL (8.4-10.2); Carbon Dioxide 22 mmol/L (22-30); Chloride 110 mmol/L (98-107); Estimated CRCL calculation 28 ml/min; Estimated Glomerular Filt Rate 29; Glucose 158 mg/dL (65-110); Sodium 139 mmol/L (137-145)
[2023-08-20 07:34] LABS: Glucose Point of Care 140 mg/dl (65-105)
--- NOTE | 2023-08-20 08:48 | PM.IMPN ---
Progress Note: A&P Assessment and Plan (1) Decubitus ulcer of sacral region: Code(s): L89.159 - Pressure ulcer of sacral region, unspecified stage Status: Acute Assessment and Plan: Sacral decubitus ulcer with cellulitis and osteomyelitis as seen on CT CT scan of the abdomen and pelvis 08/05 showing prominent soft tissue thickening and subcu emphysema on the medial right buttock area extending into the region of the right sacrum and presacral space consistent with cellulitis and possible gangrene. Lower right sacral bone destruction noted consistent with osteomyelitis. Underwent surgical debridement with sharp excisional?scalpel and scissor debridement of subcutaneous tissue, bone, and fascia of sacral decubitus ulcer with placement of wound VAC on 08/08. 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 Patient was on Levophed which was weaned off She received appropriate amount of IV fluids but now discontinued -08/05 BCx (1of2) Staph Epi. Could be contaminant -08/05 UCx growing E coli sensitive to cephalosporins -08/09 BCx NGTD -patient underwent surgical debridement 08/08 -WBC mildly elevated but stable -Clindamycin stopped 08/09 -WBC 10-12 range; no fevers -meropenem and vancomycin (08/06) for 7 days -deescalate abx to Zosyn (08/13). Will need 6 weeks of treatment starting from last debridement. 08/16: Discharged on Rocephin 2 g daily plus Flagyl 500 mg q.8 until September 18 to complete 6 weeks (3) Sepsis: Qualifiers: Sepsis acute organ dysfunction status: with acute organ dysfunction Sepsis type: sepsis due to unspecified organism Severe sepsis acute organ dysfunction type: unspecified Severe sepsis shock status: with septic shock Qualified Code(s): A41.9 - Sepsis, unspecified organism; R65.21 - Severe sepsis with septic shock Code(s): A41.9 - Sepsis, unspecified organism Status: Acute Assessment and Plan: As above (4) Acute on chronic kidney failure: Code(s): N17.9 - Acute kidney failure, unspecified; N18.9 - Chronic kidney disease, unspecified Status: Acute Assessment and Plan: Patient has a history of chronic kidney disease with baseline Cr around 1.1-1.7 . She presents with acute on chronic kidney disease with Cr of 4 likely related to hypotension, shock, ATN, UTI, and meds (on lisinopril at home). -urine lytes did not show prerenal picture, urine eosinophils are negative; Total CK 755 but better on recheck -08/06 renal ultrasound:?Left renal cysts, largest measuring 1.7 cm. -adequately fluid-resuscitated at the time and now fluids stopped -good urine output -metabolic gap acidosis resolved with IV fluids with bicarb -creatinine stable at 1.5 today -not on diuretics at home -monitor urine output, electrolytes and creatinine -nephrology following and appreciate their input (5) Urinary tract infection: Qualifiers: Hematuria presence: without hematuria Urinary tract infection type: site unspecified Qualified Code(s): N39.0 - Urinary tract infection, site not specified Code(s): N39.0 - Urinary tract infection, site not specified Status: Acute Assessment and Plan: UA noted. IV abx started. 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 Continue [employer] covering
[2023-08-20] MEDS: ASPIRIN 81 MG ENTERIC TABLET PO (08:49)
[2023-08-20] MEDS: FENOFIBRATE 160 MG TABLET PO (08:49)
[2023-08-20] MEDS: allopurinoL 300 MG TABLET PO (08:49)
[2023-08-20] MEDS: ENOXAPARIN 30 MG/0.3 ML SYRINGE SUB-Q (08:50)
[2023-08-20] MEDS: TOLNAFTATE 1% POWDER 45 GM BTL 1 APPLIC TOPICAL (08:51)
[2023-08-20 10:17] LABS: SARS-CoV-2 RNA PCR Negative (Negative)
[2023-08-20 11:32] LABS: Glucose Point of Care 197 mg/dl (65-105)
--- NOTE | 2023-08-20 12:03 | PCNFU ---
Nutrition Follow-Up Complete: Increased protein energy needs related to wound healing as evidenced by stage 4 sacral pressure injury, deep tissue injuries present on admission Goal:Adequate PO intake at least 75% meals and supplements to support wound healing Pt meeting goal. Continue with current goal. Pt current nutrition is Diabetic consistent carb, VELMA BID, Glucerna shakes BID. Nutrition recommendation: continue with current plan of care Last recorded weight is 86.2 kg. Bowel Motility: +BM 08/20 Labs Reviewed: Hgb:7.5, HCT:24.9, Alb:3.2, BUN:53, Cr:1.7, Glu:300 Meds Noted: lovenox, novolog, lantus, zofran Skin: Stage IV to sacrum, DTPI to hip, heels Additional Notes: Pt continues on a diabetic diet, intake 100% all meals at this time. Supplements in place for wound healing. Encourage good intake. Monitoring intake, wound healing, labs, weights Follow up in 7 days.
== END 2023-08-20 13:25 | DRG 853 ==
LOC: ANHED 11:32 → ANHICU 17:13 → ANHIMU 08-09 16:51 → ANH3MEDSUR 08-10 23:43
PROVIDERS: Internal Medicine; Internal Medicine Nephrology; Physician Assistant; Surgery; Admitting Provider Internal Medicine; Emergency Provider Emergency Medicine; PCP Internal Medicine; Visit Provider Student in an Organized Health Care Education/Training Program
PROC: 0JB70ZZ Excision of Back Subcutaneous Tissue and Fascia, Open Approach (ICD-10-PCS; principal; 2023-08-08 12:00)
DX: A41.9 Sepsis, unspecified organism (principal); L89.154 Pressure ulcer of sacral region, stage 4; N17.0 Acute kidney failure with tubular necrosis; R65.21 Severe sepsis with septic shock; N39.0 Urinary tract infection, site not specified; L03.317 Cellulitis of buttock; M46.28 Osteomyelitis of vertebra, sacral and sacrococcygeal region; I96 Gangrene, not elsewhere classified; E11.649 Type 2 diabetes mellitus with hypoglycemia without coma; B96.20 Unspecified Escherichia coli [E. coli] as the cause of diseases classified elsewhere; I12.9 Hypertensive chronic kidney disease with stage 1 through stage 4 chronic kidney disease, or unspecified chronic kidney disease; E11.22 Type 2 diabetes mellitus with diabetic chronic kidney disease; N18.32 Chronic kidney disease, stage 3b; M19.90 Unspecified osteoarthritis, unspecified site; E78.5 Hyperlipidemia, unspecified; E87.5 Hyperkalemia; E86.0 Dehydration; D63.8 Anemia in other chronic diseases classified elsewhere; E87.8 Other disorders of electrolyte and fluid balance, not elsewhere classified; E11.65 Type 2 diabetes mellitus with hyperglycemia; Z66 Do not resuscitate; Z79.4 Long term (current) use of insulin; Z79.82 Long term (current) use of aspirin; Z90.49 Acquired absence of other specified parts of digestive tract; Z74.01 Bed confinement status; Z20.822 Contact with and (suspected) exposure to COVID-19
CPT/HCPCS: 36415; 36556; 36569; 36600; 71045; 72131; 74176; 76775; 80048; 80053; 80069; 80076; 80202; 81001; 81050; 82375; 82533; 82550; 82570; 82607; 82728; 82746; 82805; 82948; 83010; 83036; 83050; 83540; 83550; 83605; 83615; 83735; 84100; 84156; 84300; 84443; 84540; 85025; 85027; 85046; 85610; 85730; 85999; 86704; 86706; 87040; 87077; 87086; 87088; 87186; 87340; 87635; 94660; 96361; 96365; 96367; 96375; 99285; A9270; C1751; J0696; J1650; J1815; J2185; J2270; J2371; J2405; J2543; J2704; J2997; J3010; J3370; J3475; J3480; J7030; J7120; P9047